=== PATIENT | female | born 1935 | race Caucasian/White ===

== ENCOUNTER → 2016-08-14 | Outpatient (REF) | payer MEDICARE ==
[~2016-08-14] MED LIST: /WARF25TA; ANTIFUNGAL; ASPI81TA45; COLA100C2; GAS-80CH; HYDR25TA6; NAPR500T; NORV5TAB; PAIN325T; PAXI10TA; PEPC20TA2; PERC5TAB8; SENO8.6T5; THERGRAN; TRAM50TA2; VALS80CA; ZOCO10TA; [UNRECOGNIZED DRUG - CODE]; [UNRECOGNIZED DRUG - OTHER]; dulcolax; exforge; glucosamine/chondroi; metamucil
[2016-08-14 19:02] LABS: ALBUMIN 3.7 GM/DL (3.2-5.2); ALBUMIN/GLOBULIN RATIO 1.12 (1.00-1.93); ALKALINE PHOSPHATASE 95 U/L (45-117); ALT/SGPT 16 U/L (12-78); ANION GAP 7 MEQ/L (8-16); AST/SGOT 15 U/L (15-37); BILIRUBIN,TOTAL 0.7 MG/DL (0.2-1.0); BLOOD UREA NITROGEN 13 MG/DL (7-18); CALCIUM LEVEL 8.6 MG/DL (8.8-10.2); CARBON DIOXIDE LEVEL 29 MEQ/L (21-32); CHLORIDE LEVEL 104 MEQ/L (98-107); CHOLESTEROL LEVEL 183 MG/DL (<200); CREATININE FOR GFR 0.86 MG/DL (0.55-1.02); FREE T4 0.98 NG/DL (0.76-1.46); GLOMERULAR FILTRATION RATE > 60.0 (>39); GLUCOSE, FASTING 90 MG/DL (83-110); POTASSIUM SERUM 3.9 MEQ/L (3.5-5.1); SODIUM LEVEL 140 MEQ/L (136-145); TRIGLYCERIDES LEVEL 91 MG/DL (<150)
[2016-08-14 19:32] LABS: EOS # 0.3 K/mm3 (0.0-0.50); EOS % 6.3 % (0.0-3.0); LARGE UNSTAINED CELL # 0.1 K/mm3 (0.0-0.4); LARGE UNSTAINED CELL % 1.6 % (0.0-4.0); LYMPH # 1.3 K/mm3 (1.5-4.5); LYMPH % 23.4 % (24.0-44.0); MEAN CORPUSCULAR HEMOGLOBIN 31.2 pg (27.0-33.0); MEAN CORPUSCULAR HGB CONC 33.6 g/dl (32.0-36.5); MEAN CORPUSCULAR VOLUME 92.7 fl (80.0-96.0); MONO # 0.4 K/mm3 (0.0-0.8); MONO % 8.3 % (0.0-5.0); NEUTROPHILS # 3.1 K/mm3 (1.8-7.7); NEUTROPHILS % 59.3 % (36.0-66.0); PLATELET COUNT, AUTOMATED 319 k/mm3 (150-450); WHITE BLOOD COUNT 5.2 K/mm3 (4.0-10.0)
== END ==
LOC: M SFHCCAPE 09:46
PROVIDERS: ATTEND Physician Assistant
DX: L65.9 Nonscarring hair loss, unspecified (principal); I10 Essential (primary) hypertension; R73.01 Impaired fasting glucose

== ENCOUNTER → 2016-11-14 | Outpatient (REF) | payer MEDICARE ==
[~2016-11-14] MED LIST changes: +AMLOD PO; +ASPI81CH32 PO; +FAMO1TAB11 PO; +HYDR25TAB PO; +LEVO25TA5 PO; +PARO15TA PO; +SIMV10TA2 PO; +TRIA1CR; +VALSAR PO
[2016-11-14 18:02] LABS: ALBUMIN 3.6 GM/DL (3.2-5.2); ALBUMIN/GLOBULIN RATIO 1.09 (1.00-1.93); ALKALINE PHOSPHATASE 82 U/L (45-117); ALT/SGPT 18 U/L (12-78); ANION GAP 8 MEQ/L (8-16); AST/SGOT 13 U/L (15-37); BILIRUBIN,TOTAL 0.5 MG/DL (0.2-1.0); BLOOD UREA NITROGEN 17 MG/DL (7-18); CARBON DIOXIDE LEVEL 27 MEQ/L (21-32); CHLORIDE LEVEL 109 MEQ/L (98-107); CHOLESTEROL LEVEL 182 MG/DL (<200); CREATININE FOR GFR 0.78 MG/DL (0.55-1.02); GLOMERULAR FILTRATION RATE > 60.0 (>39); GLUCOSE, FASTING 99 MG/DL (83-110); POTASSIUM SERUM 4.2 MEQ/L (3.5-5.1); SODIUM LEVEL 144 MEQ/L (136-145); TOTAL PROTEIN 6.9 GM/DL (6.4-8.2); TRIGLYCERIDES LEVEL 87 MG/DL (<150)
[2016-11-14 18:58] LABS: BASO % 0.5 % (0.0-1.0); EOS # 0.5 K/mm3 (0.0-0.50); LARGE UNSTAINED CELL # 0.1 K/mm3 (0.0-0.4); LARGE UNSTAINED CELL % 2.2 % (0.0-4.0); LYMPH # 1.8 K/mm3 (1.5-4.5); MEAN CORPUSCULAR HEMOGLOBIN 30.8 pg (27.0-33.0); MEAN CORPUSCULAR HGB CONC 33.3 g/dl (32.0-36.5); MEAN CORPUSCULAR VOLUME 92.6 fl (80.0-96.0); MONO # 0.6 K/mm3 (0.0-0.8); MONO % 9.4 % (0.0-5.0); NEUTROPHILS % 51.9 % (36.0-66.0); PLATELET COUNT, AUTOMATED 344 k/mm3 (150-450); RED CELL DISTRIBUTION WIDTH 14.1 % (11.5-14.5); WHITE BLOOD COUNT 5.8 K/mm3 (4.0-10.0)
== END ==
LOC: M SFHCCAPE 08:55
PROVIDERS: ATTEND Physician Assistant
DX: E78.2 Mixed hyperlipidemia (principal); E03.9 Hypothyroidism, unspecified; E11.9 Type 2 diabetes mellitus without complications

== ENCOUNTER → 2016-12-21 | Outpatient (CLI) | payer MEDICARE ==
[2016-12-21 20:13] LABS: BASO # 0.1 10^3/uL (0.0-0.2); BASO % 0.3 % (0.0-1.0); EOS % 0.1 % (0.0-3.0); IMMATURE GRANULOCYTE % 0.3 % (0-0); LYMPH # 0.8 10^3/uL (1.5-4.5); LYMPH % 4.6 % (24.0-44.0); MEAN CORPUSCULAR HGB CONC 32.7 g/dl (32.0-36.5); MEAN CORPUSCULAR VOLUME 91.9 fl (80.0-96.0); MONO # 1.3 10^3/uL (0.0-0.8); MONO % 8.1 % (0.0-5.0); NEUTROPHILS # 14.3 10^3/uL (1.8-7.7); NEUTROPHILS % 86.6 % (36.0-66.0); PLATELET COUNT, AUTOMATED 375 10^3/uL (150-450); RED CELL DISTRIBUTION WIDTH 14.6 % (11.5-14.5); WHITE BLOOD COUNT 16.5 10^3/uL (4.0-10.0)
[2016-12-21 21:01] LABS: ALBUMIN 4.2 GM/DL (3.2-5.2); ALBUMIN/GLOBULIN RATIO 1.17 (1.00-1.93); ALKALINE PHOSPHATASE 90 U/L (45-117); ALT/SGPT 19 U/L (12-78); ANION GAP 9 MEQ/L (8-16); AST/SGOT 14 U/L (15-37); BILIRUBIN,TOTAL 0.7 MG/DL (0.2-1.0); BLOOD UREA NITROGEN 19 MG/DL (7-18); CALCIUM LEVEL 9.6 MG/DL (8.8-10.2); CARBON DIOXIDE LEVEL 28 MEQ/L (21-32); CHLORIDE LEVEL 104 MEQ/L (98-107); CREATININE FOR GFR 0.95 MG/DL (0.55-1.02); GLOMERULAR FILTRATION RATE > 60.0 (>39); GLUCOSE, FASTING 126 MG/DL (83-110); POTASSIUM SERUM 4.3 MEQ/L (3.5-5.1); SODIUM LEVEL 141 MEQ/L (136-145); TOTAL PROTEIN 7.8 GM/DL (6.4-8.2)
== END ==
LOC: M WUC 18:34
PROVIDERS: ATTEND Physician Assistant
DX: K29.00 Acute gastritis without bleeding (principal)

== ENCOUNTER → 2017-01-09 | Outpatient (REF) | payer MEDICARE ==
[2017-01-09 20:08] LABS: BASO # 0.1 10^3/uL (0.0-0.2); EOS # 0.4 10^3/uL (0.0-0.50); EOS % 8.2 % (0.0-3.0); IMMATURE GRANULOCYTE % 0.2 % (0-0); LYMPH # 1.2 10^3/uL (1.5-4.5); LYMPH % 24.6 % (24.0-44.0); MEAN CORPUSCULAR HEMOGLOBIN 30.3 pg (27.0-33.0); MEAN CORPUSCULAR HGB CONC 32.8 g/dl (32.0-36.5); MEAN CORPUSCULAR VOLUME 92.5 fl (80.0-96.0); MONO # 0.6 10^3/uL (0.0-0.8); MONO % 11.2 % (0.0-5.0); NEUTROPHILS # 2.7 10^3/uL (1.8-7.7); NEUTROPHILS % 54.8 % (36.0-66.0); PLATELET COUNT, AUTOMATED 358 10^3/uL (150-450); RED CELL DISTRIBUTION WIDTH 14.6 % (11.5-14.5)
[2017-01-09 20:16] LABS: ALBUMIN 3.7 GM/DL (3.2-5.2); ALBUMIN/GLOBULIN RATIO 1.16 (1.00-1.93); ALKALINE PHOSPHATASE 84 U/L (45-117); ALT/SGPT 19 U/L (12-78); ANION GAP 5 MEQ/L (8-16); AST/SGOT 17 U/L (7-37); BILIRUBIN,TOTAL 0.6 MG/DL (0.2-1.0); BLOOD UREA NITROGEN 18 MG/DL (7-18); CARBON DIOXIDE LEVEL 29 MEQ/L (21-32); CHLORIDE LEVEL 108 MEQ/L (98-107); CREATININE FOR GFR 0.82 MG/DL (0.55-1.02); GLOMERULAR FILTRATION RATE > 60.0 (>39); GLUCOSE, FASTING 88 MG/DL (83-110); POTASSIUM SERUM 4.5 MEQ/L (3.5-5.1); SODIUM LEVEL 142 MEQ/L (136-145); TOTAL PROTEIN 6.9 GM/DL (6.4-8.2)
== END ==
LOC: M SFHCCAPE 11:48
PROVIDERS: ATTEND Physician Assistant
DX: Z01.818 Encounter for other preprocedural examination (principal); H26.9 Unspecified cataract
CPT/HCPCS: 80053; 85025; G0463

== ENCOUNTER 2017-01-11 06:11 | Day surgery (SDC) | payer MEDICARE ==
[~2017-01-11] VITALS: Ht 149.9 cm; Wt 93.0 kg
[2017-01-11] MEDS ORDERED: POVIDONE-IODINE 5% OPHTH PREP SOL 30ML As Ordered ONE (06:33)
[2017-01-11] MEDS ORDERED: ACETYLCHOLINE OPHTH SOLN 1% 2ML (MIOCHOL-E) As Ordered ONE (06:34)
[2017-01-11] MEDS ORDERED: BALANCED SALT IRRIGATION SOLUTION 500ML BAG (FOR OR EYE MACHINE) As Ordered ONE (06:35)
[2017-01-11] MEDS ORDERED: CEFUROXIME 1MG/0.1ML INTRACAMERAL INJ As Ordered ONE (06:36)
[2017-01-11] MEDS ORDERED: DUOVISC (0.50ML VISCOAT/0.55ML PROVISC) OPHTH KIT As Ordered ONE (06:37)
[2017-01-11] MEDS ORDERED: LIDOCAINE 0.75%/EPINEPHRINE 0.025% IN BSS 1ML SYR INTRACAMERAL (OR ONLY) As Ordered ONE (06:37)
[2017-01-11] MEDS ORDERED: TROPICAMIDE 1% OPHTH SOLN 2ML OS ONE (07:00)
[2017-01-11] MEDS ORDERED: PHENYLEPHRINE 2.5% OPHTH SOL 2ML OS ONE (07:00)
[2017-01-11] MEDS ORDERED: PROPARACAINE 0.5% OPHTH SOL 15ML OS ONE (07:00)
[2017-01-11] MEDS ORDERED: OFLOXACIN 0.3 % (OCUFLOX) OPTH SOL 5ML OS ONE (07:00)
[2017-01-11] MEDS ORDERED: fentaNYL 100 MCG/2 ML INJECTION (J3010) As Ordered ONE (07:12)
[2017-01-11] MEDS ORDERED: MIDAZOLAM INJ 2 MG/2 ML VIAL (J2250) As Ordered ONE (07:12)
[2017-01-11 08:20] VITALS: BP 137/81
--- NOTE | 2017-01-13 10:54 | RO ---
DATE OF PROCEDURE: 01/11/2017 PREOPERATIVE DIAGNOSIS: Visually significant nuclear sclerotic cataract left eye. POSTOPERATIVE DIAGNOSIS: Visually significant nuclear sclerotic cataract left eye. PROCEDURE: Cataract extraction with use of phacoemulsification and placement of intraocular lens, AU00T0, 22.5 diopters eye. SURGEON: Rubin Shane DO CHEF PASSENGER VESSEL: ANESTHESIA: Local with monitored anesthesia care (MAC). COMPLICATIONS: None. POSTOPERATIVE CONDITION: Stable. INDICATION FOR SURGERY: Blurred vision left eye affecting patient's activities of daily living. DESCRIPTION OF PROCEDURE: The patient was seen in the preoperative area and properly identified. The correct operative eye was identified and marked. Attention was turned to that eye. The patient received topical antibiotics in the preoperative area. The patient then received topical dilating drops consisting of tropicamide and phenylephrine. The patient was then transferred to the operating room. The correct side was re-identified. The patient received topical anesthetics and antibiotics on the surface of the eye. The eye was prepped and draped in a sterile fashion. The upper and lower eyelids were isolated with Tegaderm tape, and the lids were held open with an adjustable speculum. Using a sideport blade, a paracentesis incision was made. Intraocular preservative-free lidocaine was then injected into the anterior chamber. Viscoelastic was then injected into the anterior chamber through the paracentesis. Using a 2.4 mm sharp-tipped keratome, the anterior chamber was entered via a temporal clear corneal incision. A continuous curvilinear capsulorrhexis was created with the aid of a 26-gauge cystotome and Utrata forceps. Hydrodissection was performed with balanced salt solution (BSS) on a blunt cannula until the nucleus was freely mobile. The crystalline lens was phacoemulsified and aspirated. Additional cohesive viscoelastic was placed into the capsular bag to deepen it. An AU00T0, 22.5 lens was placed into the capsular bag and confirmed by visualizing the continuous curvilinear capsulorrhexis. Additional irrigation and aspiration was used to remove cortical material and remaining viscoelastic. The clear corneal incision was hydrated with BSS on a blunt cannula. The lens was well positioned. The incisions were then tested for leaks and found to be negative. The eye was then palpated for appropriate pressure and adjusted accordingly with BSS. The eyelid speculum was carefully removed. A shield was placed. The patient tolerated the procedure well and was discharged to the recovery unit in a stable condition. TARIK
== END 2017-01-11 08:22 | disposition home or self-care (01) ==
LOC: M SDC 06:11
PROVIDERS: ATTEND Ophthalmology
DX: H25.12 Age-related nuclear cataract, left eye (principal); I10 Essential (primary) hypertension; E78.5 Hyperlipidemia, unspecified; E03.9 Hypothyroidism, unspecified; K21.9 Gastro-esophageal reflux disease without esophagitis; F41.9 Anxiety disorder, unspecified; F32.9 Major depressive disorder, single episode, unspecified; Z88.8 Allergy status to other drugs, medicaments and biological substances; Z79.82 Long term (current) use of aspirin; Z79.899 Other long term (current) drug therapy
CPT/HCPCS: 66984; J2250; J3010; V2632

== ENCOUNTER 2017-02-01 08:17 | Day surgery (SDC) | payer MEDICARE ==
[~2017-02-01] VITALS: Ht 149.9 cm; Wt 91.7 kg
[~2017-02-01 08:17] MED LIST changes: +OFLOXACIN 0.3 % (OCUFLOX) OPTH SOL 5ML OD ONE; +PHENYLEPHRINE 2.5% OPHTH SOL 2ML OD ONE; +PROPARACAINE 0.5% OPHTH SOL 15ML OD ONE; +TROPICAMIDE 1% OPHTH SOLN 2ML OD ONE
[2017-02-01] MEDS ORDERED: POVIDONE-IODINE 5% OPHTH PREP SOL 30ML As Ordered ONE (10:11)
[2017-02-01] MEDS ORDERED: LIDOCAINE 0.75%/EPINEPHRINE 0.025% IN BSS 1ML SYR INTRACAMERAL (OR ONLY) As Ordered ONE (10:12)
[2017-02-01] MEDS ORDERED: CEFUROXIME 1MG/0.1ML INTRACAMERAL INJ As Ordered ONE (10:12)
[2017-02-01] MEDS ORDERED: BALANCED SALT IRRIGATION SOLUTION 500ML BAG (FOR OR EYE MACHINE) As Ordered ONE (10:12)
[2017-02-01] MEDS ORDERED: DUOVISC (0.50ML VISCOAT/0.55ML PROVISC) OPHTH KIT As Ordered ONE (10:12)
[2017-02-01] MEDS ORDERED: ACETYLCHOLINE OPHTH SOLN 1% 2ML (MIOCHOL-E) As Ordered ONE (10:12)
[2017-02-01] MEDS ORDERED: MIDAZOLAM INJ 2 MG/2 ML VIAL (J2250) As Ordered ONE (10:30)
[2017-02-01] MEDS ORDERED: fentaNYL 100 MCG/2 ML INJECTION (J3010) As Ordered ONE (10:30)
[2017-02-01] MEDS ORDERED: ONDANSETRON 4MG/2ML VIAL (J2405) IV PRN (11:30)
[2017-02-01] MEDS ORDERED: ACETAMINOPHEN TAB 650MG DOSE (2X325MG) PO PRN (11:30)
[2017-02-01 12:00] VITALS: BP 143/67
--- NOTE | 2017-02-02 13:11 | RO ---
DATE OF PROCEDURE: 02/01/2017 PREOPERATIVE DIAGNOSIS: Visually significant nuclear sclerotic cataract right eye. POSTOPERATIVE DIAGNOSIS: Visually significant nuclear sclerotic cataract right eye. PROCEDURE: Cataract extraction with use of phacoemulsification and placement of intraocular lens, AU00T0, 23.0, right eye. SURGEON: Rubin Shane DO SETTLEMENT PROCESSOR: ANESTHESIA: Local with monitored anesthesia care (MAC). COMPLICATIONS: None. POSTOPERATIVE CONDITION: Stable. INDICATION FOR SURGERY: Blurred vision right eye affecting patient's activities of daily living. DESCRIPTION OF PROCEDURE: The patient was seen in the preoperative area and properly identified. The correct operative eye was identified and marked. Attention was turned to that eye. The patient received topical antibiotics in the preoperative area. The patient then received topical dilating drops consisting of tropicamide and phenylephrine. The patient was then transferred to the operating room. The correct side was re-identified. The patient received topical anesthetics and antibiotics on the surface of the eye. The eye was prepped and draped in a sterile fashion. The upper and lower eyelids were isolated with Tegaderm tape, and the lids were held open with an adjustable speculum. Using a sideport blade, a paracentesis incision was made. Intraocular preservative-free lidocaine was then injected into the anterior chamber. Viscoelastic was then injected into the anterior chamber through the paracentesis. Using a 2.65 mm sharp-tipped keratome, the anterior chamber was entered via a temporal clear corneal incision. A continuous curvilinear capsulorrhexis was created with the aid of a 26-gauge cystotome and Utrata forceps. Hydrodissection was performed with balanced salt solution (BSS) on a blunt cannula until the nucleus was freely mobile. The crystalline lens was phacoemulsified and aspirated. Additional cohesive viscoelastic was placed into the capsular bag to deepen it. An AU00T0 lens was placed into the capsular bag and confirmed by visualizing the continuous curvilinear capsulorrhexis. Additional irrigation and aspiration was used to remove cortical material and remaining viscoelastic. The clear corneal incision was hydrated with BSS on a blunt cannula. The lens was well positioned. The incisions were then tested for leaks and found to be negative. The eye was then palpated for appropriate pressure and adjusted accordingly with BSS. The eyelid speculum was carefully removed. TobraDex ointment was placed in the eye. An eye patch and shield were then secured over the eye. The patient tolerated the procedure well and was discharged to the recovery unit in a stable condition.
== END 2017-02-01 12:06 | disposition home or self-care (01) ==
LOC: M SDC 08:17
PROVIDERS: ATTEND Ophthalmology
DX: H25.11 Age-related nuclear cataract, right eye (principal); I10 Essential (primary) hypertension; E03.9 Hypothyroidism, unspecified; E78.00 Pure hypercholesterolemia, unspecified; K21.9 Gastro-esophageal reflux disease without esophagitis; F41.9 Anxiety disorder, unspecified; F32.9 Major depressive disorder, single episode, unspecified; M19.041 Primary osteoarthritis, right hand; M19.042 Primary osteoarthritis, left hand; M19.071 Primary osteoarthritis, right ankle and foot; M19.072 Primary osteoarthritis, left ankle and foot; Z88.5 Allergy status to narcotic agent; Z88.8 Allergy status to other drugs, medicaments and biological substances; Z91.048 Other nonmedicinal substance allergy status; Z79.899 Other long term (current) drug therapy; Z79.82 Long term (current) use of aspirin
CPT/HCPCS: 66984; J2250; J3010; V2632

== ENCOUNTER → 2017-04-23 | Outpatient (REF) | payer MEDICARE ==
[2017-04-23 18:11] LABS: ALBUMIN 3.9 GM/DL (3.2-5.2); ALBUMIN/GLOBULIN RATIO 1.05 (1.00-1.93); ALKALINE PHOSPHATASE 106 U/L (45-117); ALT/SGPT 16 U/L (12-78); ANION GAP 7 MEQ/L (8-16); AST/SGOT 18 U/L (7-37); BILIRUBIN,TOTAL 0.7 MG/DL (0.2-1.0); BLOOD UREA NITROGEN 15 MG/DL (7-18); CALCIUM LEVEL 9.1 MG/DL (8.8-10.2); CARBON DIOXIDE LEVEL 30 MEQ/L (21-32); CHLORIDE LEVEL 104 MEQ/L (98-107); CHOLESTEROL LEVEL 201 MG/DL (<200); CREATININE FOR GFR 0.94 MG/DL (0.55-1.30); FREE T4 0.85 NG/DL (0.76-1.46); GLOMERULAR FILTRATION RATE > 60.0 (>32); GLUCOSE, FASTING 89 MG/DL (70-100); HDL CHOLESTEROL 87 MG/DL (>40); NON-HDL-C 114 MG/DL; POTASSIUM SERUM 3.7 MEQ/L (3.5-5.1); SODIUM LEVEL 141 MEQ/L (136-145); TOTAL PROTEIN 7.6 GM/DL (6.4-8.2); TRIGLYCERIDES LEVEL 95 MG/DL (<150)
[2017-04-23 19:33] LABS: ESTIMATED AVERAGE GLUCOSE 111 MG/DL (60-110); HEMOGLOBIN A1c 5.5 %
== END ==
LOC: M SFHCCAPE 09:59
DX: E78.00 Pure hypercholesterolemia, unspecified (principal); E03.9 Hypothyroidism, unspecified; E11.9 Type 2 diabetes mellitus without complications
CPT/HCPCS: 84443

== ENCOUNTER 2017-07-14 08:22 | Observation (INO) | payer MEDICARE ==
[2017-07-14] MEDS: LEVOTHYROXINE 25MCG TABLET (0.025MG) PO (06:00)
[2017-07-14] MEDS: PANTOPRAZOLE 40MG INJ (PROTONIX) (C9113) IV ×2 (09:00→21:07)
[2017-07-14] MEDS ORDERED: ACETAMINOPHEN 325 MG TAB As Ordered (09:03)
[2017-07-14] MEDS ORDERED: ONDANSETRON 4MG/2ML VIAL (J2405) As Ordered (09:03)
[2017-07-14] MEDS: ONDANSETRON 4MG/2ML VIAL (J2405) IV ×2 (09:09→10:13)
[2017-07-14] MEDS: NS 1,000 ML IV ×4 (09:10→21:08)
[2017-07-14 09:13] LABS: BASO % 0.3 % (0.0-1.0); EOS % 0.1 % (0.0-3.0); HEMATOCRIT 44.9 % (36.0-47.0); HEMOGLOBIN 15.4 g/dl (12.0-15.5); IMMATURE GRANULOCYTE % 0.5 % (0-3.0); LYMPH # 0.7 10^3/uL (1.5-4.5); LYMPH % 6.3 % (24.0-44.0); MEAN CORPUSCULAR HGB CONC 34.3 g/dl (32.0-36.5); MEAN CORPUSCULAR VOLUME 87.4 fl (80.0-96.0); MONO # 0.2 10^3/uL (0.0-0.8); MONO % 1.6 % (0.0-5.0); NEUTROPHILS % 91.2 % (36.0-66.0); PLATELET COUNT, AUTOMATED 364 10^3/uL (150-450); RED BLOOD COUNT 5.14 10^6/uL (4.00-5.40); RED CELL DISTRIBUTION WIDTH 14.4 % (11.5-14.5); WHITE BLOOD COUNT 10.9 10^3/uL (4.0-10.0)
[2017-07-14] MEDS: ACETAMINOPHEN TAB 650MG DOSE (2X325MG) PO (09:15)
[2017-07-14 09:18] LABS: AMORPHOUS SEDIMENT RFX SMALL (NEGATIVE); KETONE, URINE AUTO RFX 1+ mg/dL (NEGATIVE); LEUKOCYTE ESTERASE UR AUTO RFX NEGATIVE (NEGATIVE); NITRITE, URINE AUTO RFX NEGATIVE (NEGATIVE); RBC, URINE AUTO RFX 5 /HPF (0-3); SPECIFIC GRAVITY UR AUTO RFX 1.013 (1.002-1.035); SQUAM EPITHELIAL CELL UR AURFX 2 /HPF (0-6); WBC, URINE AUTO RFX 3 /HPF (0-3)
[2017-07-14 09:31] LABS: LACTIC ACID SEPSIS PROTOCOL 3.2 MMOL/L (0.4-2.0)
[2017-07-14] MEDS: SODIUM CHLORIDE 0.9% 1000 ML IV (09:45)
[2017-07-14 09:59] LABS: ALBUMIN 3.7 GM/DL (3.2-5.2); ALBUMIN/GLOBULIN RATIO 0.95 (1.00-1.93); ALKALINE PHOSPHATASE 93 U/L (45-117); ALT/SGPT 18 U/L (12-78); AMYLASE 33 U/L (25-115); ANION GAP 10 MEQ/L (8-16); AST/SGOT 17 U/L (7-37); BILIRUBIN,DIRECT 0.2 MG/DL (0.0-0.2); BILIRUBIN,TOTAL 0.7 MG/DL (0.2-1.0); BLOOD UREA NITROGEN 17 MG/DL (7-18); CALCIUM LEVEL 8.6 MG/DL (8.8-10.2); CARBON DIOXIDE LEVEL 22 MEQ/L (21-32); CHLORIDE LEVEL 108 MEQ/L (98-107); CK-MB VALUE MASS 1.1 NG/ML (<3.6); CPK CREATINE PHOSPHOKINASE 99 U/L (26-192); CREATININE FOR GFR 0.92 MG/DL (0.55-1.30); GLOMERULAR FILTRATION RATE > 60.0 (>32); GLUCOSE, FASTING 165 MG/DL (70-100); LIPASE 103 U/L (73-393); MB/CK RELATIVE INDEX 1.11 (< OR =4); POTASSIUM SERUM 3.6 MEQ/L (3.5-5.1); SODIUM LEVEL 140 MEQ/L (136-145); TOTAL PROTEIN 7.6 GM/DL (6.4-8.2); TROPONIN I < 0.02 NG/ML (< 0.10)
[2017-07-14] MEDS ORDERED: ISOVUE-370 76% 100ML VIAL (Q9967) As Ordered (10:18)
[2017-07-14] MEDS ORDERED: METOCLOPRAMIDE INJ 10MG/2ML VIAL (J2765) IV (11:45)
[2017-07-14] MEDS ORDERED: ACETAMINOPHEN 500 MG TAB PO (11:45)
[2017-07-14] MEDS ORDERED: TRIAMCINOLONE ACET 0.1% CREAM 15 GM TOP (11:45)
[2017-07-14] MEDS ORDERED: ACETAMINOPHEN TAB 650MG DOSE (2X325MG) PO (11:45)
[2017-07-14] MEDS: HumaLOG INSULIN (NovoLOG) PER UNIT SC ×3 (12:00→21:09)
[2017-07-14] MEDS ORDERED: GLUCOSE 4 GM CHEW TABLET PO (12:30)
[2017-07-14] MEDS ORDERED: DEXTROSE 50% 50 ML SYRINGE IV (12:30)
[2017-07-14] MEDS ORDERED: GLUCAGON FOR INJ 1 MG VIAL (J1610) SC (12:30)
[2017-07-14 12:53] LABS: C REACTIVE PROTEIN QUANTITATIV < 0.30 MG/DL (0.00-0.30); MAGNESIUM LEVEL 2.3 MG/DL (1.8-2.4)
[2017-07-14 14:01] LABS: ERYTHROCYTE SEDIMENTATION RATE 5 mm/hr (0-30)
[2017-07-14] MEDS: METOCLOPRAMIDE INJ 10MG/2ML VIAL (J2765) IV ×3 (14:15→23:47)
[2017-07-14 15:02] LABS: INR 1.17; PARTIAL THROMBOPLASTIN TIME 26.4 SECONDS (26.8-37.9); PROTHROMBIN TIME 15.1 SECONDS (12.4-14.5)
[2017-07-14 15:19] LABS: CPK CREATINE PHOSPHOKINASE 248 U/L (26-192); TROPONIN I 0.07 NG/ML (< 0.10)
[2017-07-14 15:20] LABS: CK-MB VALUE MASS 3.1 NG/ML (<3.6); MB/CK RELATIVE INDEX 1.25 (< OR =4)
[2017-07-14] MEDS: amLODIPine 10 MG TAB PO (15:59)
[2017-07-14] MEDS: SIMETHICONE 80 MG CHEW TAB PO ×2 (15:59→21:07)
[2017-07-14] MEDS: PARoxetine 10MG TABLET PO (16:00)
[2017-07-14] MEDS: ASPIRIN 81 MG CHEW TABLET PO (16:00)
[2017-07-14] MEDS: hydroCHLOROthiazide 25 MG TAB PO (16:01)
[2017-07-14] MEDS: HEPARIN SOD (PORCINE) 5000 UNITS/ML VIAL SC ×2 (16:01→21:08)
[2017-07-14 18:11] LABS: BEDSIDE GLUCOSE 96 MG/DL (83-110)
[2017-07-14 20:46] LABS: BEDSIDE GLUCOSE 86 MG/DL (83-110)
[2017-07-14 21:06] LABS: CPK CREATINE PHOSPHOKINASE 368 U/L (26-192); TROPONIN I 0.14 NG/ML (< 0.10)
[2017-07-14 21:07] LABS: CK-MB VALUE MASS 3.3 NG/ML (<3.6); MB/CK RELATIVE INDEX 0.89 (< OR =4)
[2017-07-14] MEDS: SIMVASTATIN 10 MG TAB PO (21:07)
[2017-07-14] MEDS: FAMOTIDINE 20 MG TAB PO (21:07)
[2017-07-15 00:13] LABS: CPK CREATINE PHOSPHOKINASE 379 U/L (26-192); TROPONIN I 0.16 NG/ML (< 0.10)
[2017-07-15 00:14] LABS: CK-MB VALUE MASS 3.4 NG/ML (<3.6); MB/CK RELATIVE INDEX 0.89 (< OR =4)
[2017-07-15] MEDS: NS 1,000 ML IV (05:40)
[2017-07-15] MEDS: METOCLOPRAMIDE INJ 10MG/2ML VIAL (J2765) IV (05:40)
[2017-07-15] MEDS: LEVOTHYROXINE 25MCG TABLET (0.025MG) PO (05:40)
[2017-07-15] MEDS: HEPARIN SOD (PORCINE) 5000 UNITS/ML VIAL SC ×3 (05:40→21:12)
[2017-07-15 06:41] LABS: BASO # 0.1 10^3/uL (0.0-0.2); BASO % 0.7 % (0.0-1.0); EOS # 0.3 10^3/uL (0.0-0.50); EOS % 3.8 % (0.0-3.0); HEMATOCRIT 37.8 % (36.0-47.0); IMMATURE GRANULOCYTE % 0.3 % (0-3.0); LYMPH # 1.5 10^3/uL (1.5-4.5); LYMPH % 16.7 % (24.0-44.0); MEAN CORPUSCULAR HEMOGLOBIN 30.3 pg (27.0-33.0); MEAN CORPUSCULAR HGB CONC 33.9 g/dl (32.0-36.5); MEAN CORPUSCULAR VOLUME 89.6 fl (80.0-96.0); MONO % 10.7 % (0.0-5.0); NEUTROPHILS % 67.8 % (36.0-66.0); PLATELET COUNT, AUTOMATED 297 10^3/uL (150-450); RED BLOOD COUNT 4.22 10^6/uL (4.00-5.40); RED CELL DISTRIBUTION WIDTH 14.9 % (11.5-14.5); WHITE BLOOD COUNT 8.8 10^3/uL (4.0-10.0)
[2017-07-15 06:54] LABS: HEMOGLOBIN 12.8 g/dl (12.0-15.5)
[2017-07-15 07:06] LABS: ALBUMIN 2.9 GM/DL (3.2-5.2); ALBUMIN/GLOBULIN RATIO 0.94 (1.00-1.93); ALKALINE PHOSPHATASE 73 U/L (45-117); ALT/SGPT 13 U/L (12-78); ANION GAP 8 MEQ/L (8-16); AST/SGOT 21 U/L (7-37); BILIRUBIN,TOTAL 0.8 MG/DL (0.2-1.0); BLOOD UREA NITROGEN 11 MG/DL (7-18); CALCIUM LEVEL 7.7 MG/DL (8.8-10.2); CARBON DIOXIDE LEVEL 25 MEQ/L (21-32); CHLORIDE LEVEL 113 MEQ/L (98-107); CK-MB VALUE MASS 2.8 NG/ML (<3.6); CPK CREATINE PHOSPHOKINASE 340 U/L (26-192); CREATININE FOR GFR 0.82 MG/DL (0.55-1.30); GLOMERULAR FILTRATION RATE > 60.0 (>32); GLUCOSE, FASTING 92 MG/DL (70-100); MAGNESIUM LEVEL 2.2 MG/DL (1.8-2.4); MB/CK RELATIVE INDEX 0.82 (< OR =4); POTASSIUM SERUM 2.7 MEQ/L (3.5-5.1); SODIUM LEVEL 146 MEQ/L (136-145); TROPONIN I 0.09 NG/ML (< 0.10)
[2017-07-15] MEDS: HumaLOG INSULIN (NovoLOG) PER UNIT SC ×4 (07:30→20:44)
[2017-07-15] MEDS: ASPIRIN 81 MG CHEW TABLET PO (07:46)
[2017-07-15] MEDS: FAMOTIDINE 20 MG TAB PO ×2 (07:46→21:13)
[2017-07-15] MEDS: hydroCHLOROthiazide 25 MG TAB PO (07:46)
[2017-07-15] MEDS: SIMETHICONE 80 MG CHEW TAB PO ×3 (07:47→21:12)
[2017-07-15] MEDS: amLODIPine 10 MG TAB PO (07:47)
[2017-07-15] MEDS: PANTOPRAZOLE 40MG INJ (PROTONIX) (C9113) IV ×2 (07:48→21:12)
[2017-07-15] MEDS: PARoxetine 10MG TABLET PO (07:48)
[2017-07-15] MEDS: ONDANSETRON 4MG/2ML VIAL (J2405) IV (07:48)
[2017-07-15] MEDS: KCL 40MEQ in NS 1000ML 1,000 ML IV ×3 (07:50→19:57)
[2017-07-15] MEDS: KCL 10MEQ/100ML SWI (KRUN) 10 MEQ in APPROPRIATE DILUENT 1 EA IV ×2 (07:51→09:12)
[2017-07-15 11:33] LABS: BEDSIDE GLUCOSE 103 MG/DL (83-110)
[2017-07-15 17:44] LABS: BEDSIDE GLUCOSE 102 MG/DL (83-110)
[2017-07-15 19:44] LABS: BEDSIDE GLUCOSE 107 MG/DL (83-110)
[2017-07-15] MEDS: SIMVASTATIN 10 MG TAB PO (21:11)
[2017-07-16] MEDS: HEPARIN SOD (PORCINE) 5000 UNITS/ML VIAL SC (05:55)
[2017-07-16] MEDS: LEVOTHYROXINE 25MCG TABLET (0.025MG) PO (05:55)
[2017-07-16 06:37] LABS: BASO # 0.1 10^3/uL (0.0-0.2); BASO % 0.8 % (0.0-1.0); EOS # 0.5 10^3/uL (0.0-0.50); EOS % 7.8 % (0.0-3.0); HEMOGLOBIN 12.7 g/dl (12.0-15.5); IMMATURE GRANULOCYTE % 0.3 % (0-3.0); LYMPH # 1.4 10^3/uL (1.5-4.5); LYMPH % 22.6 % (24.0-44.0); MEAN CORPUSCULAR HEMOGLOBIN 30.3 pg (27.0-33.0); MEAN CORPUSCULAR HGB CONC 32.6 g/dl (32.0-36.5); MEAN CORPUSCULAR VOLUME 93.1 fl (80.0-96.0); MONO # 0.8 10^3/uL (0.0-0.8); MONO % 12.2 % (0.0-5.0); NEUTROPHILS # 3.6 10^3/uL (1.8-7.7); NEUTROPHILS % 56.3 % (36.0-66.0); PLATELET COUNT, AUTOMATED 260 10^3/uL (150-450); RED BLOOD COUNT 4.19 10^6/uL (4.00-5.40); WHITE BLOOD COUNT 6.4 10^3/uL (4.0-10.0)
[2017-07-16 06:56] LABS: ALBUMIN 2.7 GM/DL (3.2-5.2); ALBUMIN/GLOBULIN RATIO 0.84 (1.00-1.93); ALKALINE PHOSPHATASE 71 U/L (45-117); ALT/SGPT 14 U/L (12-78); ANION GAP 4 MEQ/L (8-16); AST/SGOT 20 U/L (7-37); BILIRUBIN,TOTAL 0.5 MG/DL (0.2-1.0); BLOOD UREA NITROGEN 14 MG/DL (7-18); CALCIUM LEVEL 8.1 MG/DL (8.8-10.2); CARBON DIOXIDE LEVEL 24 MEQ/L (21-32); CHLORIDE LEVEL 117 MEQ/L (98-107); CREATININE FOR GFR 0.93 MG/DL (0.55-1.30); GLOMERULAR FILTRATION RATE > 60.0 (>32); GLUCOSE, FASTING 104 MG/DL (70-100); MAGNESIUM LEVEL 2.3 MG/DL (1.8-2.4); POTASSIUM SERUM 4.1 MEQ/L (3.5-5.1); SODIUM LEVEL 145 MEQ/L (136-145); TOTAL PROTEIN 5.9 GM/DL (6.4-8.2)
[2017-07-16] MEDS: HumaLOG INSULIN (NovoLOG) PER UNIT SC ×2 (07:30→12:00)
[2017-07-16] MEDS: ASPIRIN 81 MG CHEW TABLET PO (08:38)
[2017-07-16] MEDS: SIMETHICONE 80 MG CHEW TAB PO (08:38)
[2017-07-16] MEDS: PANTOPRAZOLE 40MG INJ (PROTONIX) (C9113) IV (08:38)
[2017-07-16] MEDS: FAMOTIDINE 20 MG TAB PO (08:38)
[2017-07-16] MEDS: PARoxetine 10MG TABLET PO (08:39)
[2017-07-16] MEDS: amLODIPine 10 MG TAB PO (08:39)
== END 2017-07-16 13:55 | disposition home or self-care (01) ==
LOC: M ED 08:22 → M ED INP 11:30 → M MS5PR 12:20
DX: R11.2 Nausea with vomiting, unspecified (principal); K44.9 Diaphragmatic hernia without obstruction or gangrene; E03.9 Hypothyroidism, unspecified; R06.09 Other forms of dyspnea; K21.9 Gastro-esophageal reflux disease without esophagitis; I10 Essential (primary) hypertension; E78.4 Other hyperlipidemia; E11.9 Type 2 diabetes mellitus without complications; E66.01 Morbid (severe) obesity due to excess calories; Z79.899 Other long term (current) drug therapy; F32.9 Major depressive disorder, single episode, unspecified; Z79.82 Long term (current) use of aspirin; R79.1 Abnormal coagulation profile
CPT/HCPCS: C9113

== ENCOUNTER → 2017-08-20 | Outpatient (REF) | payer MEDICARE ==
[2017-08-20 18:14] LABS: FREE T4 0.99 NG/DL (0.76-1.46)
== END ==
LOC: M SFHCCAPE 10:06
DX: E03.9 Hypothyroidism, unspecified (principal); E78.00 Pure hypercholesterolemia, unspecified
CPT/HCPCS: 84443

== ENCOUNTER 2017-10-01 12:46 | Emergency (ER) | payer MEDICARE ==
[2017-10-01] MEDS: ONDANSETRON 4MG/2ML VIAL (J2405) IV (13:45)
[2017-10-01] MEDS: NS 1,000 ML IV (13:45)
[2017-10-01] MEDS: MORPHINE 4 MG/ML 1ML VIAL/SYRINGE (J2270) IV (13:46)
[2017-10-01 14:01] LABS: BASO # 0.1 10^3/uL (0.0-0.2); BASO % 0.3 % (0.0-1.0); EOS % 0.1 % (0.0-3.0); HEMATOCRIT 43.8 % (36.0-47.0); HEMOGLOBIN 14.9 g/dl (12.0-15.5); IMMATURE GRANULOCYTE % 0.3 % (0-3.0); LYMPH # 0.7 10^3/uL (1.5-4.5); MEAN CORPUSCULAR HEMOGLOBIN 30.1 pg (27.0-33.0); MEAN CORPUSCULAR VOLUME 88.5 fl (80.0-96.0); MONO # 1.1 10^3/uL (0.0-0.8); MONO % 6.6 % (0.0-5.0); NEUTROPHILS # 15.2 10^3/uL (1.8-7.7); NEUTROPHILS % 88.7 % (36.0-66.0); PLATELET COUNT, AUTOMATED 383 10^3/uL (150-450); RED BLOOD COUNT 4.95 10^6/uL (4.00-5.40); RED CELL DISTRIBUTION WIDTH 14.4 % (11.5-14.5); WHITE BLOOD COUNT 17.2 10^3/uL (4.0-10.0)
[2017-10-01 14:08] LABS: KETONE, URINE AUTO RFX 1+ mg/dL (NEGATIVE); MUCUS, URINE RFX SMALL (NEGATIVE); NITRITE, URINE AUTO RFX NEGATIVE (NEGATIVE); RBC, URINE AUTO RFX 3 /HPF (0-3); SPECIFIC GRAVITY UR AUTO RFX 1.016 (1.002-1.035); SQUAM EPITHELIAL CELL UR AURFX 2 /HPF (0-6); WBC, URINE AUTO RFX 4 /HPF (0-3)
[2017-10-01 14:13] LABS: LEUKOCYTE ESTERASE UR AUTO RFX TRACE (NEGATIVE)
[2017-10-01] MEDS: KETOROLAC 30 MG/ML VIAL (J1885) IV (14:21)
[2017-10-01 14:25] LABS: ALBUMIN 3.8 GM/DL (3.2-5.2); ALBUMIN/GLOBULIN RATIO 0.95 (1.00-1.93); ALKALINE PHOSPHATASE 98 U/L (45-117); ALT/SGPT 17 U/L (12-78); ANION GAP 12 MEQ/L (8-16); AST/SGOT 17 U/L (7-37); BILIRUBIN,DIRECT 0.2 MG/DL (0.0-0.2); BILIRUBIN,TOTAL 0.7 MG/DL (0.2-1.0); BLOOD UREA NITROGEN 16 MG/DL (7-18); CALCIUM LEVEL 9.3 MG/DL (8.8-10.2); CARBON DIOXIDE LEVEL 24 MEQ/L (21-32); CHLORIDE LEVEL 104 MEQ/L (98-107); CREATININE FOR GFR 1.02 MG/DL (0.55-1.30); GLOMERULAR FILTRATION RATE 55.5 (>32); GLUCOSE, FASTING 176 MG/DL (70-100); LIPASE 87 U/L (73-393); POTASSIUM SERUM 3.2 MEQ/L (3.5-5.1); SODIUM LEVEL 140 MEQ/L (136-145); TOTAL PROTEIN 7.8 GM/DL (6.4-8.2)
[2017-10-01] MEDS ORDERED: ISOVUE-370 76% 100ML VIAL (Q9967) As Ordered (14:27)
[2017-10-01] MEDS: METOCLOPRAMIDE INJ 10MG/2ML VIAL (J2765) IV (14:38)
[2017-10-01] MEDS: ACETAMINOPHEN TAB 650MG DOSE (2X325MG) PO (17:30)
== END 2017-10-01 18:19 | disposition home or self-care (01) ==
LOC: M ED 12:46
DX: K57.32 Diverticulitis of large intestine without perforation or abscess without bleeding (principal); K56.41 Fecal impaction; R11.10 Vomiting, unspecified; R00.0 Tachycardia, unspecified; I10 Essential (primary) hypertension; K21.9 Gastro-esophageal reflux disease without esophagitis; F41.9 Anxiety disorder, unspecified; F32.9 Major depressive disorder, single episode, unspecified; E07.9 Disorder of thyroid, unspecified; Z88.8 Allergy status to other drugs, medicaments and biological substances; Z88.5 Allergy status to narcotic agent; Z91.048 Other nonmedicinal substance allergy status; Z79.899 Other long term (current) drug therapy; Z79.82 Long term (current) use of aspirin
CPT/HCPCS: J2405

== ENCOUNTER → 2017-10-26 | Outpatient (REF) | payer MEDICARE ==
[2017-10-26 11:50] LABS: APPEARANCE, URINE CLEAR (CLEAR); BACTERIA, URINE AUTO 1+ (NEGATIVE); BILIRUBIN, URINE AUTO NEGATIVE (NEGATIVE); BLOOD, URINE BLOOD 1+ (NEGATIVE); COLOR, URINE YELLOW (YELLOW); GLUCOSE, URINE (UA) AUTO NEGATIVE (NEGATIVE); KETONE, URINE AUTO NEGATIVE (NEGATIVE); LEUKOCYTE ESTERASE, URINE AUTO 1+ (NEGATIVE); MUCUS, URINE SMALL (NEGATIVE); NITRITE, URINE AUTO NEGATIVE (NEGATIVE); PROTEIN, URINE AUTO NEGATIVE (NEGATIVE); RBC, URINE AUTO 1 /HPF (0-3); SPECIFIC GRAVITY URINE AUTO 1.013 (1.002-1.035); SQUAMOUS EPITHELIAL CELL UR AU 1 /HPF (0-6); UROBILINOGEN, URINE AUTO 0.2 mg/dL (0.0-2.0); WBC, URINE AUTO 4 /HPF (0-3)
== END ==
LOC: M SMT 11:07
DX: N13.39 Other hydronephrosis (principal); Z79.899 Other long term (current) drug therapy
CPT/HCPCS: 81001

== ENCOUNTER → 2017-11-06 | Outpatient (CLI) | payer MEDICARE ==
[~2017-11-06] MED LIST changes: -/WARF25TA; -AMLOD PO; -ANTIFUNGAL; -ASPI81CH32 PO; -ASPI81TA45; -COLA100C2; -FAMO1TAB11 PO; -GAS-80CH; -HYDR25TA6; -HYDR25TAB PO; -LEVO25TA5 PO; +LIDOCAINE 1% MDV 20ML VIAL As Ordered; -NAPR500T; -NORV5TAB; -OFLOXACIN 0.3 % (OCUFLOX) OPTH SOL 5ML OD ONE; -PAIN325T; -PARO15TA PO; -PAXI10TA; -PEPC20TA2; -PERC5TAB8; -PHENYLEPHRINE 2.5% OPHTH SOL 2ML OD ONE; -PROPARACAINE 0.5% OPHTH SOL 15ML OD ONE; -SENO8.6T5; -SIMV10TA2 PO; -THERGRAN; -TRAM50TA2; -TRIA1CR; -TROPICAMIDE 1% OPHTH SOLN 2ML OD ONE; -VALS80CA; -VALSAR PO; -ZOCO10TA; -[UNRECOGNIZED DRUG - CODE]; -[UNRECOGNIZED DRUG - OTHER]; -dulcolax; -exforge; -glucosamine/chondroi; -metamucil
== END ==
LOC: M RADPRO 10:41
DX: C50.412 Malignant neoplasm of upper-outer quadrant of left female breast (principal)
CPT/HCPCS: 19083

== ENCOUNTER 2017-11-15 08:00 | Day surgery (SDC) | payer MEDICARE ==
[2017-11-15] MEDS ORDERED: LR 1,000 ML IV ×2 (08:15→13:15)
[2017-11-15] MEDS: LIDOCAINE 5% (LIDODERM) PATCH TD (08:35)
[2017-11-15] MEDS ORDERED: LIDOCAINE 1% MDV 20ML VIAL As Ordered (10:00)
[2017-11-15] MEDS: LIDOCAINE 1% SDV INJ 30 ML VIAL As Ordered (11:38)
[2017-11-15] MEDS ORDERED: PROPOFOL 200 MG/20 ML VIAL As Ordered (11:45)
[2017-11-15] MEDS ORDERED: METOCLOPRAMIDE INJ 10MG/2ML VIAL (J2765) As Ordered (11:45)
[2017-11-15] MEDS ORDERED: LIDOCAINE 2% INJ 100 MG/5 ML SDV (FOR ANES.) As Ordered (11:45)
[2017-11-15] MEDS ORDERED: ROCURONIUM BROMIDE 50 MG/5 ML VIAL As Ordered (11:45)
[2017-11-15] MEDS ORDERED: fentaNYL 100 MCG/2 ML INJECTION (J3010) As Ordered ×2 (11:45→11:46)
[2017-11-15] MEDS ORDERED: ePHEDrine SULFATE 25 MG/5 ML(5MG/ML) SYRINGE As Ordered (11:55)
[2017-11-15] MEDS ORDERED: PHENYLephrine HCL 500 MCG/5 ML (100MCG/ML) SYRINGE (J2370) As Ordered (12:21)
[2017-11-15] MEDS ORDERED: ONDANSETRON 4MG/2ML VIAL (J2405) As Ordered (12:25)
[2017-11-15] MEDS ORDERED: NEOSTIGMINE 10 MG/10 ML VIAL (J2710) As Ordered (12:29)
[2017-11-15] MEDS ORDERED: GLYCOPYRROLATE INJ 0.2 MG/ML 2 ML VIAL As Ordered (12:29)
[2017-11-15] MEDS ORDERED: KETOROLAC 60 MG/2 ML VIAL (J1885) As Ordered (12:32)
[2017-11-15] MEDS ORDERED: ONDANSETRON 4MG/2ML VIAL (J2405) IV (13:15)
[2017-11-15] MEDS ORDERED: HYDROMORPHONE HCL 0.5 MG/ 0.5 ML SYRINGE (J1170 PER 1) IV (13:15)
[2017-11-15] MEDS ORDERED: fentaNYL 100 MCG/2 ML INJECTION (J3010) IV (13:15)
[2017-11-15] MEDS ORDERED: PERCOCET 5MG/325MG TAB PO (13:15)
[2017-11-15] MEDS ORDERED: NORCO, ANEXSIA 5/325MG TABLET (HYDROcodone/ACETAMINOPHEN) PO (13:30)
[2017-11-15] MEDS ORDERED: ACETAMINOPHEN TAB 650MG DOSE (2X325MG) PO (13:30)
== END 2017-11-15 14:35 | disposition home or self-care (01) ==
LOC: M SDC 08:00
DX: D05.12 Intraductal carcinoma in situ of left breast (principal); I10 Essential (primary) hypertension; E78.00 Pure hypercholesterolemia, unspecified; E03.9 Hypothyroidism, unspecified; K21.9 Gastro-esophageal reflux disease without esophagitis; M12.9 Arthropathy, unspecified; F41.9 Anxiety disorder, unspecified; F32.9 Major depressive disorder, single episode, unspecified; R32 Unspecified urinary incontinence; Z88.5 Allergy status to narcotic agent; Z79.899 Other long term (current) drug therapy; Z91.040 Latex allergy status; Z91.048 Other nonmedicinal substance allergy status; Z90.710 Acquired absence of both cervix and uterus; Z96.641 Presence of right artificial hip joint; Z96.652 Presence of left artificial knee joint; Z98.51 Tubal ligation status; Z96.1 Presence of intraocular lens
CPT/HCPCS: 19301

== ENCOUNTER → 2017-11-23 | Outpatient (CLI) | payer MEDICARE | LOC: M WHC 09:38 | DX: C50.912 Malignant neoplasm of unspecified site of left female breast (principal); M17.9 Osteoarthritis of knee, unspecified | CPT/HCPCS: 77080 ==

== ENCOUNTER → 2017-12-06 | Outpatient (CLI) | payer MEDICARE | LOC: M ONCR 10:04 | DX: C50.912 Malignant neoplasm of unspecified site of left female breast (principal) | CPT/HCPCS: G0463 ==

== ENCOUNTER → 2018-01-03 | Outpatient (REF) | payer MEDICARE | LOC: M SFHCPLAZ 17:28 | DX: C44.319 Basal cell carcinoma of skin of other parts of face (principal); C44.310 Basal cell carcinoma of skin of unspecified parts of face (principal) | CPT/HCPCS: 88305 ==

== ENCOUNTER → 2018-02-18 | Outpatient (REF) | payer MEDICARE ==
[~2018-02-18] MED LIST changes: +/WARF25TA; +AMLO-151 PO; +AMLO10TA5 OR; +AMLOD PO; +ANTIFUNGAL; +ASPI81CH32 PO; +ASPI81TA45; +CIPR-249 PO; +COLA100C2; +FAMO1TAB11 PO; +FLAG500T PO; +GAS-80CH; +HYDR25TA6; +HYDR25TAB PO; +LETR2.5T2 PO; +LEVO25TA5 PO; -LIDOCAINE 1% MDV 20ML VIAL As Ordered; +MILK120011 PO; +MIRA3350 PO; +NAPR500T; +NORV5TAB; +ONDA4TAB5 PO; +PAIN325T; +PARO15TA PO; +PARO30TA PO; +PAXI10TA; +PEPC20TA2; +PERC5TAB8; +SENO8.6T5; +SIMV10TA2 PO; +TELM1TAB PO; +THERGRAN; +TRAM50TA2; +TRIA1CR TOP; +VALS80CA; +VALSAR PO; +ZOCO10TA; +[UNRECOGNIZED DRUG - CODE]; +[UNRECOGNIZED DRUG - OTHER]; +dulcolax; +exforge; +glucosamine/chondroi; +metamucil
[2018-02-18 17:03] LABS: ALBUMIN 3.6 GM/DL (3.2-5.2); ALT/SGPT 17 U/L (12-78); BILIRUBIN,TOTAL 0.7 MG/DL (0.2-1.0); BLOOD UREA NITROGEN 15 MG/DL (7-18); CALCIUM LEVEL 8.6 MG/DL (8.8-10.2); CARBON DIOXIDE LEVEL 28 MEQ/L (21-32); CHLORIDE LEVEL 105 MEQ/L (98-107); CHOLESTEROL LEVEL 195 MG/DL (<200); CHOLESTEROL RISK RATIO 2.671 (<5); GLOMERULAR FILTRATION RATE > 60.0 (>32); GLUCOSE, FASTING 82 MG/DL (70-100); HDL CHOLESTEROL 73 MG/DL (>40); HEMOGLOBIN A1c 5.8 %; LDL CHOLESTEROL 103 MG/DL (<100); NON-HDL-C 122 MG/DL; SODIUM LEVEL 142 MEQ/L (136-145); TOTAL PROTEIN 7.1 GM/DL (6.4-8.2); TRIGLYCERIDES LEVEL 97 MG/DL (<150)
[2018-02-18 17:24] LABS: CREATININE, URINE 92.8 MG/DL; MALB URINE SIEMENS 20.3 MG/L; MAU/CREAT RATIO 21.8 MCG/MG (0.0-30.0)
== END ==
LOC: M SFHCCAPE 09:43
PROVIDERS: ATTEND Physician Assistant
DX: I10 Essential (primary) hypertension (principal); E03.9 Hypothyroidism, unspecified; E11.9 Type 2 diabetes mellitus without complications; E78.2 Mixed hyperlipidemia

== ENCOUNTER → 2018-06-27 | Outpatient (CLI) | payer MEDICARE ==
[~2018-06-27] MED LIST changes: -/WARF25TA; -ASPI81CH32 PO; +ASPI81CH33 PO; +COUM1TAB18; +TRIA0.1C60 TOP; -TRIA1CR TOP
--- NOTE | 2018-06-27 13:48 | REP ---
UNILATERAL MAMMOGRAM LEFT BREAST WITH 3D TOMOSYNTHESIS: Unilateral mammogram left breast performed with 3D tomosynthesis. Patient has had left lumpectomy in November 2017 for breast cancer. Comparison made with prior postbiopsy images 11/06/2017 as well as other prior exams. The previously noted nodule in the medial left breast has been surgically removed. There is mild scattered fibroglandular tissue in the left breast with no suspicious mass or clustered microcalcifications. IMPRESSION: BIRADS 1: BI-RADS/ACR category 1 mammogram. Negative Mammogram. Left breast. No mass or clustered microcalcifications. Patient is status post left lumpectomy for breast cancer. Suggest followup bilateral mammogram October 2018. This mammogram was interpreted with the aid of an FDA-approved computer-aided detection system. The patient states he/she had a clinical breast exam in 06/2018. The patient letter being requested is M1. Electronically Signed by Leroy Blanc MD 06/27/2018 04:38 P
== END ==
LOC: M RAD 12:08
PROVIDERS: ATTEND Internal Medicine Medical Oncology
DX: R92.8 Other abnormal and inconclusive findings on diagnostic imaging of breast (principal); Z85.3 Personal history of malignant neoplasm of breast
CPT/HCPCS: 77065; G0279

== ENCOUNTER → 2018-08-20 | Outpatient (REF) | payer MEDICARE ==
[2018-08-20 17:21] LABS: HEMOGLOBIN A1c 5.7 %
[2018-08-20 17:24] LABS: BASO # 0.1 10^3/uL (0.0-0.2); BASO % 0.8 % (0.0-1.0); EOS # 0.4 10^3/uL (0.0-0.50); EOS % 5.8 % (0.0-3.0); HEMATOCRIT 44.4 % (36.0-47.0); HEMOGLOBIN 14.1 g/dl (12.0-15.5); LYMPH # 1.3 10^3/uL (1.5-4.5); LYMPH % 20.5 % (24.0-44.0); MEAN CORPUSCULAR HGB CONC 31.8 g/dl (32.0-36.5); MEAN CORPUSCULAR VOLUME 94.5 fl (80.0-96.0); MONO # 0.6 10^3/uL (0.0-0.8); MONO % 9.5 % (0.0-5.0); NEUTROPHILS # 3.9 10^3/uL (1.8-7.7); NEUTROPHILS % 63.2 % (36.0-66.0); PLATELET COUNT, AUTOMATED 307 10^3/uL (150-450); WHITE BLOOD COUNT 6.2 10^3/uL (4.0-10.0)
[2018-08-20 17:39] LABS: ALBUMIN 3.6 GM/DL (3.2-5.2); ALT/SGPT 17 U/L (12-78); BILIRUBIN,TOTAL 0.7 MG/DL (0.2-1.0); BLOOD UREA NITROGEN 14 MG/DL (7-18); CALCIUM LEVEL 9.5 MG/DL (8.8-10.2); CARBON DIOXIDE LEVEL 28 MEQ/L (21-32); CHLORIDE LEVEL 108 MEQ/L (98-107); CHOLESTEROL LEVEL 195 MG/DL (<200); FREE T4 0.89 NG/DL (0.76-1.46); GLOMERULAR FILTRATION RATE > 60.0 (>32); GLUCOSE, FASTING 78 MG/DL (70-100); HDL CHOLESTEROL 78 MG/DL (>40); LDL CHOLESTEROL 97 MG/DL (<100); NON-HDL-C 117 MG/DL; SODIUM LEVEL 143 MEQ/L (136-145); TOTAL PROTEIN 7.4 GM/DL (6.4-8.2); TRIGLYCERIDES LEVEL 101 MG/DL (<150)
== END ==
LOC: M SFHCCAPE 09:50
PROVIDERS: ATTEND Physician Assistant
DX: I10 Essential (primary) hypertension (principal); E03.9 Hypothyroidism, unspecified; E11.9 Type 2 diabetes mellitus without complications

== ENCOUNTER → 2018-10-03 | Outpatient (REF) | payer MEDICARE ==
[2018-10-03 16:53] LABS: FREE T4 1.09 NG/DL (0.76-1.46); THYROID STIMULATING HORMONE 1.97 uIU/ML (0.358-3.740)
== END ==
LOC: M SFHCCAPE 09:49
PROVIDERS: ATTEND Physician Assistant
DX: E03.9 Hypothyroidism, unspecified (principal)

== ENCOUNTER → 2018-10-16 | Outpatient (CLI) | payer MEDICARE ==
--- NOTE | 2018-10-16 14:48 | REPMRS ---
Patient History The patient states she had a clinical breast exam in 2017. Malignant radio exam breast specimen of the left breast, November 15, 2017. Malignant localization of breast nodule of the left breast, November 15, 2017. Malignant US guided breast biopsy of the left breast, November 06, 2017. Taking tamoxifen for 6 months. Digital Mammo Screening Bilat: October 16, 2018 - Exam #: [id number] Bilateral CC and MLO view(s) were taken. Technologist: Lien Grey, Technologist Prior study comparison: June 27, 2018, left breast digital mammo diagnostic unilateral performed at [facility]. November 06, 2017, left breast digital mammo diagnostic unilateral performed at [facility]. October 16, 2017, bilateral digital woman screen mammo, performed at [facility]. FINDINGS: There are scattered fibroglandular densities. The nodular opacity noted previously in the left medial breast has been removed. There has been no change in the appearance of the mammogram from the prior studies. There is a mild amount of scattered fibroglandular density which is fairly symmetric. There is no interval development of dominant mass, architectural distortion, or grouped microcalcification suggestive of malignancy. 3-D tomosynthesis shows no additional findings. Assessment: BI-RADS/ACR category 1 mammogram. Negative Mammogram. Recommendation Routine screening mammogram of both breasts in 1 year (for women over age 40). This mammogram was interpreted with the aid of an FDA-approved computer-aided dectection system. Electronically Signed By: Maxwell Torres MD 10/16/18 [id number]
== END ==
LOC: M RAD 09:38
PROVIDERS: ATTEND Physician Assistant
DX: Z12.31 Encounter for screening mammogram for malignant neoplasm of breast (principal); Z85.3 Personal history of malignant neoplasm of breast

== ENCOUNTER → 2018-12-19 | Outpatient (CLI) | payer MEDICARE ==
--- NOTE | 2018-12-24 15:45 | DEXA ---
AP SPINE L1 - L4 1.507 2.5 4.4 LT FEMUR TOTAL 0.906 -0.8 1.3 LT NECK 0.823 -1.5 0.7 RT FEMUR TOTAL Right hip replacement. RT NECK Right hip replacement. TOTAL BODY TOTAL OTHER COMMENTS: Normal bone densitometry of the spine. There is low bone density of the left hip. The density of the spine has increased 9.2% since the initial exam on 03/26/2002. The spine density has increased 3.6% since the most recent exam on 11/23/2017. The density of the left hip has decreased 15.6% since the initial exam on 03/26/2002. The density of the left hip has increased 8.4% since the most recent exam on 11/23/2017. Right hip replacement. FOLLOW-UP: Recommendation for the next bone density exam: 2 years. TARIK
== END ==
LOC: M WHC 13:01
PROVIDERS: ATTEND Internal Medicine Medical Oncology
DX: Z51.81 Encounter for therapeutic drug level monitoring (principal); Z79.899 Other long term (current) drug therapy; C50.919 Malignant neoplasm of unspecified site of unspecified female breast; M85.852 Other specified disorders of bone density and structure, left thigh; Z96.651 Presence of right artificial knee joint

== ENCOUNTER → 2019-04-08 | Outpatient (REF) | payer MEDICARE ==
[~2019-04-08] MED LIST changes: -AMLO-151 PO; +AMLO-180 PO; +ONDA-83 PO; -ONDA4TAB5 PO; -SIMV10TA2 PO; +SIMV10TA21 PO; -TELM1TAB PO; +TELM1TAB35 PO
[2019-04-08 16:56] LABS: BASO # 0.1 10^3/uL (0.0-0.2); BASO % 1.6 % (0.0-1.0); EOS # 0.5 10^3/uL (0.0-0.5); EOS % 7.9 % (0.0-3.0); HEMOGLOBIN 14.5 g/dl (12.0-15.5); LYMPH # 1.2 10^3/uL (1.5-5.0); LYMPH % 18.8 % (24.0-44.0); MEAN CORPUSCULAR HGB CONC 32.2 g/dl (32.0-36.5); MONO # 0.8 10^3/uL (0.0-0.8); MONO % 11.6 % (0.0-5.0); NEUTROPHILS # 3.9 10^3/uL (1.5-8.5); NEUTROPHILS % 59.8 % (36.0-66.0); PLATELET COUNT, AUTOMATED 387 10^3/uL (150-450); RED BLOOD COUNT 4.84 10^6/uL (4.00-5.40); WHITE BLOOD COUNT 6.5 10^3/uL (4.0-10.0)
[2019-04-08 17:14] LABS: ALBUMIN 3.7 GM/DL (3.2-5.2); ALT/SGPT 17 U/L (12-78); BILIRUBIN,TOTAL 0.4 MG/DL (0.2-1.0); BLOOD UREA NITROGEN 21 MG/DL (7-18); CALCIUM LEVEL 9.3 MG/DL (8.8-10.2); CARBON DIOXIDE LEVEL 30 MEQ/L (21-32); CHLORIDE LEVEL 104 MEQ/L (98-107); CHOLESTEROL LEVEL 211 MG/DL (<200); CREATININE FOR GFR 0.94 MG/DL (0.55-1.30); FREE T4 1.16 NG/DL (0.76-1.46); GLOMERULAR FILTRATION RATE > 60.0 (>32); GLUCOSE, FASTING 88 MG/DL (70-100); HDL CHOLESTEROL 72 MG/DL (>40); LDL CHOLESTEROL 121 MG/DL (<100); NON-HDL-C 139 MG/DL; POTASSIUM SERUM 3.9 MEQ/L (3.5-5.1); SODIUM LEVEL 140 MEQ/L (136-145); TOTAL PROTEIN 7.1 GM/DL (6.4-8.2); TRIGLYCERIDES LEVEL 90 MG/DL (<150)
== END ==
LOC: M SFHCCAPE 09:57
PROVIDERS: ATTEND Physician Assistant
DX: E03.9 Hypothyroidism, unspecified (principal)

== ENCOUNTER → 2019-09-02 | Outpatient (REF) | payer MEDICARE ==
[~2019-09-02] MED LIST changes: -PARO15TA PO; -PARO30TA PO; +PARO30TA4 PO; +PARO30TA65 PO
== END ==
LOC: M SFHCCLAY 12:39
PROVIDERS: ATTEND Physician Assistant
DX: R30.0 Dysuria (principal)

== ENCOUNTER → 2019-10-20 | Outpatient (CLI) | payer MEDICARE ==
[~2019-10-20] MED LIST changes: -AMLO10TA5 OR; +AMLO1TAB25 OR
--- NOTE | 2019-10-29 10:32 | REPMRS ---
Patient History The patient states she has not had a clinical breast exam in over a year. Patient has history of cancer in the left breast at age 82. Malignant radio exam breast specimen of the left breast, November 15, 2017. Malignant localization of breast nodule of the left breast, November 15, 2017. Malignant US guided breast biopsy of the left breast, November 06, 2017. Taking tamoxifen for 6 months. Digital Woman Screen Mammo: October 20, 2019 - Exam #: [id number] Bilateral CC and MLO view(s) were taken. Technologist: Kinjal Paz, Technologist Prior study comparison: October 16, 2018, bilateral digital mammo screening bilat performed at [facility]. June 27, 2018, left breast digital mammo diagnostic unilateral performed at [facility]. October 16, 2017, bilateral digital woman screen mammo, performed at [facility]. October 14, 2016, bilateral digital woman screen mammo, performed at [facility]. FINDINGS: There are scattered fibroglandular densities. The Volpara volumetric breast density category is:B. There has been no change in the appearance of the mammogram from the prior studies. There is a mild amount of scattered fibroglandular density which is fairly symmetric. There is no interval development of dominant mass, architectural distortion, or grouped microcalcification suggestive of malignancy. 3-D tomosynthesis shows no additional findings. Assessment: BI-RADS/ACR category 1 mammogram. Negative Mammogram. Recommendation Routine screening mammogram of both breasts in 1 year (for women over age 40). This mammogram was interpreted with the aid of an FDA-approved computer-aided dectection system. Electronically Signed By: Maxwell Torres MD 10/29/19 [id number]
== END ==
LOC: M WHC 10:00
PROVIDERS: ATTEND Physician Assistant
DX: Z12.31 Encounter for screening mammogram for malignant neoplasm of breast (principal); Z85.3 Personal history of malignant neoplasm of breast; Z79.899 Other long term (current) drug therapy

== ENCOUNTER → 2019-11-04 | Outpatient (REF) | payer MEDICARE ==
[2019-11-05 14:27] LABS: BASO # 0.1 10^3/uL (0.0-0.2); BASO % 0.9 % (0.0-1.0); EOS # 0.4 10^3/uL (0.0-0.5); EOS % 6.4 % (0.0-3.0); HEMATOCRIT 43.5 % (36.0-47.0); HEMOGLOBIN 14.1 g/dl (12.0-15.5); LYMPH # 1.4 10^3/uL (1.5-5.0); LYMPH % 19.6 % (24.0-44.0); MEAN CORPUSCULAR HEMOGLOBIN 30.2 pg (27.0-33.0); MEAN CORPUSCULAR HGB CONC 32.4 g/dl (32.0-36.5); MEAN CORPUSCULAR VOLUME 93.1 fl (80.0-96.0); MONO # 0.9 10^3/uL (0.0-0.8); MONO % 12.8 % (0.0-5.0); NEUTROPHILS # 4.2 10^3/uL (1.5-8.5); NEUTROPHILS % 60.2 % (36.0-66.0); PLATELET COUNT, AUTOMATED 334 10^3/uL (150-450); RED BLOOD COUNT 4.67 10^6/uL (4.00-5.40); WHITE BLOOD COUNT 6.9 10^3/uL (4.0-10.0)
[2019-11-05 14:59] LABS: ALBUMIN 3.7 GM/DL (3.2-5.2); ALT/SGPT 14 U/L (12-78); BILIRUBIN,TOTAL 0.7 MG/DL (0.2-1.0); BLOOD UREA NITROGEN 17 MG/DL (7-18); CALCIUM LEVEL 9.1 MG/DL (8.8-10.2); CARBON DIOXIDE LEVEL 28 MEQ/L (21-32); CHLORIDE LEVEL 106 MEQ/L (98-107); CHOLESTEROL LEVEL 180 MG/DL (<200); CHOLESTEROL RISK RATIO 2.857 (<5); FREE T4 1.14 NG/DL (0.76-1.46); GLOMERULAR FILTRATION RATE > 60.0 (>32); GLUCOSE, FASTING 79 MG/DL (70-100); HDL CHOLESTEROL 63 MG/DL (>40); LDL CHOLESTEROL 100 MG/DL (<100); NON-HDL-C 117 MG/DL; POTASSIUM SERUM 3.7 MEQ/L (3.5-5.1); SODIUM LEVEL 139 MEQ/L (136-145); TRIGLYCERIDES LEVEL 85 MG/DL (<150)
[2019-11-05 15:59] LABS: HEMOGLOBIN A1c 5.4 %
== END ==
LOC: M LABDRAWC 15:35
PROVIDERS: ATTEND Physician Assistant
DX: F32.9 Major depressive disorder, single episode, unspecified (principal); E78.2 Mixed hyperlipidemia; E03.9 Hypothyroidism, unspecified

== ENCOUNTER → 2020-06-15 | Outpatient (REF) | payer MEDICARE ==
[~2020-06-15] MED LIST changes: +HYDR-3490 PO; -HYDR25TAB PO
[2020-06-15 16:36] LABS: BASO # 0.1 10^3/uL (0.0-0.2); BASO % 1.4 % (0.0-1.0); EOS # 0.4 10^3/uL (0.0-0.5); EOS % 4.5 % (0.0-3.0); HEMATOCRIT 45.2 % (36.0-47.0); HEMOGLOBIN 14.7 g/dl (12.0-15.5); LYMPH # 1.3 10^3/uL (1.5-5.0); LYMPH % 16.8 % (24.0-44.0); MEAN CORPUSCULAR HEMOGLOBIN 29.9 pg (27.0-33.0); MEAN CORPUSCULAR HGB CONC 32.5 g/dl (32.0-36.5); MEAN CORPUSCULAR VOLUME 92.1 fl (80.0-96.0); MONO # 0.9 10^3/uL (0.0-0.8); MONO % 11.3 % (2.0-8.0); NEUTROPHILS # 5.1 10^3/uL (1.5-8.5); NEUTROPHILS % 65.5 % (36.0-66.0); PLATELET COUNT, AUTOMATED 439 10^3/uL (150-450); RED BLOOD COUNT 4.91 10^6/uL (4.00-5.40); WHITE BLOOD COUNT 7.9 10^3/uL (4.0-10.0)
[2020-06-15 16:44] LABS: ALBUMIN 3.8 GM/DL (3.2-5.2); BILIRUBIN,TOTAL 0.6 MG/DL (0.2-1.0); CALCIUM LEVEL 10.1 MG/DL (8.8-10.2); CHOLESTEROL RISK RATIO 2.733 (<5); CREATININE FOR GFR 0.95 MG/DL (0.55-1.30); FREE T4 1.05 NG/DL (0.76-1.46); GLOMERULAR FILTRATION RATE 59.8 (>32); POTASSIUM SERUM 3.8 MEQ/L (3.5-5.1); THYROID STIMULATING HORMONE 2.77 uIU/ML (0.358-3.740); TOTAL PROTEIN 7.2 GM/DL (6.4-8.2)
[2020-06-15 16:58] LABS: HEMOGLOBIN A1c 5.3 %
== END ==
LOC: M SFHCCAPE 10:54
PROVIDERS: ATTEND Physician Assistant
DX: E78.2 Mixed hyperlipidemia (principal); E03.9 Hypothyroidism, unspecified; E11.9 Type 2 diabetes mellitus without complications

== ENCOUNTER → 2020-06-29 | Outpatient (REF) | payer MEDICARE | LOC: M SFHCCAPE 16:07 | PROVIDERS: ATTEND Physician Assistant | DX: E11.9 Type 2 diabetes mellitus without complications (principal); Z23 Encounter for immunization | CPT/HCPCS: 82043; 90472; 90715; 90732; G0009 ==

== ENCOUNTER → 2020-10-03 | Outpatient (REF) | payer MEDICARE | LOC: M WUC 17:45 | PROVIDERS: ATTEND Physician Assistant | DX: R10.9 Unspecified abdominal pain (principal) ==

== ENCOUNTER → 2021-01-10 | Outpatient (REF) | payer MEDICARE ==
[2021-01-10 16:44] LABS: BASO # 0.1 10^3/uL (0.0-0.2); BASO % 0.9 % (0.0-1.0); EOS # 0.4 10^3/uL (0.0-0.5); EOS % 5.1 % (0.0-3.0); HEMATOCRIT 43.3 % (36.0-47.0); HEMOGLOBIN 14.2 g/dl (12.0-15.5); LYMPH # 1.3 10^3/uL (1.5-5.0); LYMPH % 18.1 % (24.0-44.0); MEAN CORPUSCULAR HEMOGLOBIN 30.1 pg (27.0-33.0); MEAN CORPUSCULAR HGB CONC 32.8 g/dl (32.0-36.5); MEAN CORPUSCULAR VOLUME 91.9 fl (80.0-96.0); MONO # 0.8 10^3/uL (0.0-0.8); MONO % 11.3 % (2.0-8.0); NEUTROPHILS # 4.5 10^3/uL (1.5-8.5); NEUTROPHILS % 64.3 % (36.0-66.0); RED BLOOD COUNT 4.71 10^6/uL (4.00-5.40)
[2021-01-10 17:13] LABS: ALBUMIN 3.6 GM/DL (3.2-5.2); ALT/SGPT 17 U/L (12-78); BILIRUBIN,TOTAL 0.7 MG/DL (0.2-1.0); BLOOD UREA NITROGEN 19 MG/DL (7-18); CALCIUM LEVEL 9.5 MG/DL (8.8-10.2); CARBON DIOXIDE LEVEL 27 MEQ/L (21-32); CHLORIDE LEVEL 104 MEQ/L (98-107); CHOLESTEROL LEVEL 192 MG/DL (<200); CREATININE FOR GFR 0.81 MG/DL (0.55-1.30); GLOMERULAR FILTRATION RATE > 60.0 (>32); GLUCOSE, FASTING 88 MG/DL (70-100); HDL CHOLESTEROL 79 MG/DL (>40); LDL CHOLESTEROL 96 MG/DL (<100); NON-HDL-C 113 MG/DL; POTASSIUM SERUM 4.7 MEQ/L (3.5-5.1); SODIUM LEVEL 139 MEQ/L (136-145); TOTAL PROTEIN 7.2 GM/DL (6.4-8.2); TRIGLYCERIDES LEVEL 87 MG/DL (<150)
[2021-01-10 17:31] LABS: HEMOGLOBIN A1c 5.3 %
[2021-01-10 17:48] LABS: PLATELET COUNT, AUTOMATED 311 10^3/uL (150-450)
== END ==
LOC: M SFHCCAPE 10:52
PROVIDERS: ATTEND Physician Assistant
DX: E03.9 Hypothyroidism, unspecified (principal); E11.9 Type 2 diabetes mellitus without complications

== ENCOUNTER 2021-06-07 11:51 | Inpatient (IN) | payer MEDICARE ==
[~2021-06-07] VITALS: Ht 149.9 cm; Wt 87.2 kg
[~2021-06-07 11:51] MED LIST changes: -AMLO1TAB25 OR; +AMLO1TAB25 PO
[2021-06-07] MEDS ORDERED: ONDANSETRON 4MG/2ML VIAL IV ONE (13:00)
[2021-06-07] MEDS: fentaNYL 100 MCG/2 ML INJECTION IV PRN ×2 (13:15→14:14)
[2021-06-07] MEDS ORDERED: NS 1,000 ML IV SCH (13:50)
[2021-06-07 14:11] LABS: BASO # 0.1 10^3/uL (0.0-0.2); BASO % 0.6 % (0.0-1.0); EOS # 0.1 10^3/uL (0.0-0.5); EOS % 0.7 % (0.0-3.0); HEMATOCRIT 43.6 % (36.0-47.0); HEMOGLOBIN 14.5 g/dl (12.0-15.5); LYMPH # 0.7 10^3/uL (1.5-5.0); LYMPH % 7.2 % (24.0-44.0); MEAN CORPUSCULAR HEMOGLOBIN 30.1 pg (27.0-33.0); MEAN CORPUSCULAR HGB CONC 33.3 g/dl (32.0-36.5); MEAN CORPUSCULAR VOLUME 90.5 fl (80.0-96.0); MONO # 0.8 10^3/uL (0.0-0.8); MONO % 8.8 % (2.0-8.0); NEUTROPHILS # 7.4 10^3/uL (1.5-8.5); NEUTROPHILS % 82.4 % (36.0-66.0); PLATELET COUNT, AUTOMATED 341 10^3/uL (150-450); RED BLOOD COUNT 4.82 10^6/uL (4.00-5.40)
[2021-06-07 14:27] LABS: INR 1.14
[2021-06-07 14:28] LABS: PARTIAL THROMBOPLASTIN TIME 31.5 SECONDS (25.9-37.0)
[2021-06-07 14:40] LABS: CALCIUM LEVEL 9.3 MG/DL (8.8-10.2); CREATININE FOR GFR 0.96 MG/DL (0.55-1.30); GLOMERULAR FILTRATION RATE 58.9 (>32)
[2021-06-07 15:18] LABS: RSV AMPLIFICATION NEGATIVE (NEGATIVE)
[2021-06-07] MEDS ORDERED: LETR2.5T2 PO (15:19)
[2021-06-07] MEDS ORDERED: PARO40TA3 PO (15:19)
[2021-06-07] MEDS ORDERED: HOME MED LIST COMPLETE! XX SCH (15:20)
[2021-06-07] MEDS ORDERED: ONDANSETRON 4MG/2ML VIAL IV PRN (17:05)
[2021-06-07] MEDS ORDERED: MORPHINE 4 MG/ML 1ML VIAL/SYRINGE IV PRN (17:05)
[2021-06-07 18:00] VITALS: BP 106/67
[2021-06-07] MEDS: D5W/0.9% SODIUM CHLORIDE 1,000 ML IV SCH (18:25)
[2021-06-07 18:38] LABS: ALBUMIN 3.6 GM/DL (3.2-5.2)
[2021-06-07 18:53] LABS: TOTAL 25(OH) VITAMIN D 13.5 NG/ML (30.0-100.0)
[2021-06-07] MEDS ORDERED: PERCOCET 5MG/325MG TAB PO ONE (18:55)
[2021-06-07] MEDS ORDERED: HYDROMORPHONE HCL 0.5 MG/ 0.5 ML SYRINGE (J1170 PER 1) IV PRN (18:55)
[2021-06-07] MEDS ORDERED: ACETAMINOPHEN TAB 650MG DOSE (2X325MG) PO PRN (18:55)
[2021-06-07] MEDS: LETROZOLE 2.5 MG TAB PO SCH (21:55)
[2021-06-07] MEDS: SIMVASTATIN 10 MG TAB PO SCH (21:55)
[2021-06-07 22:00] VITALS: BP 104/52
[2021-06-07] MEDS ORDERED: NS 1,000 ML IV ONE (23:00)
[2021-06-08] VITALS (10 sets, daily range): BP systolic 100–117; BP diastolic 52–78
[2021-06-08 04:57] LABS: BASO % 0.6 % (0.0-1.0); EOS # 0.5 10^3/uL (0.0-0.5); EOS % 7.5 % (0.0-3.0); HEMATOCRIT 38.7 % (36.0-47.0); HEMOGLOBIN 12.6 g/dl (12.0-15.5); LYMPH # 1.2 10^3/uL (1.5-5.0); LYMPH % 17.5 % (24.0-44.0); MEAN CORPUSCULAR HEMOGLOBIN 29.9 pg (27.0-33.0); MEAN CORPUSCULAR HGB CONC 32.6 g/dl (32.0-36.5); MEAN CORPUSCULAR VOLUME 91.9 fl (80.0-96.0); MONO # 1.1 10^3/uL (0.0-0.8); MONO % 16.6 % (2.0-8.0); NEUTROPHILS # 3.9 10^3/uL (1.5-8.5); NEUTROPHILS % 57.5 % (36.0-66.0); PLATELET COUNT, AUTOMATED 307 10^3/uL (150-450); RED BLOOD COUNT 4.21 10^6/uL (4.00-5.40); WHITE BLOOD COUNT 6.8 10^3/uL (4.0-10.0)
[2021-06-08 05:21] LABS: BLOOD UREA NITROGEN 19 MG/DL (7-18); CALCIUM LEVEL 7.9 MG/DL (8.8-10.2); CARBON DIOXIDE LEVEL 26 MEQ/L (21-32); CHLORIDE LEVEL 113 MEQ/L (98-107); CREATININE FOR GFR 0.64 MG/DL (0.55-1.30); GLOMERULAR FILTRATION RATE > 60.0 (>32); GLUCOSE, FASTING 103 MG/DL (70-100); POTASSIUM SERUM 4.2 MEQ/L (3.5-5.1); SODIUM LEVEL 142 MEQ/L (136-145)
[2021-06-08] MEDS: LEVOTHYROXINE 25MCG TABLET (0.025MG) PO SCH (06:20)
[2021-06-08] MEDS: D5W/0.9% SODIUM CHLORIDE 1,000 ML IV SCH ×2 (06:25→08:29)
[2021-06-08] MEDS ORDERED: HYDROmorphone HCL 2MG/ML 1ML VIAL As Ordered ONE (10:28)
[2021-06-08] MEDS ORDERED: dexameTHASONE 4 MG/ML 1ML VIAL (J1100 PER 1MG) As Ordered ONE (10:28)
[2021-06-08] MEDS ORDERED: ROCURONIUM BROMIDE 50 MG/5 ML VIAL As Ordered ONE (10:28)
[2021-06-08] MEDS ORDERED: MIDAZOLAM INJ 2MG/2ML VIAL (J2250 PER 1MG) As Ordered ONE (10:28)
[2021-06-08] MEDS ORDERED: ONDANSETRON 4MG/2ML VIAL As Ordered ONE (10:28)
[2021-06-08] MEDS ORDERED: propofoL 200 MG/20 ML VIAL As Ordered ONE (10:28)
[2021-06-08] MEDS ORDERED: LIDOCAINE 2% 100MG/5ML SDV (FOR ANES.) As Ordered ONE (10:28)
[2021-06-08] MEDS ORDERED: fentaNYL 100 MCG/2 ML INJECTION As Ordered ONE (10:28)
[2021-06-08] MEDS ORDERED: ACETAMINOPHEN 1000MG 100ML IV BTL (OFIRMEV) (J0131 PER 10MG) As Ordered ONE (10:34)
[2021-06-08] MEDS: CLOTRIMAZOLE 1% TOPICAL CREAM 30GM TOP SCH ×2 (11:37→20:12)
[2021-06-08] MEDS ORDERED: VANCOMYCIN 1000MG/20ML VIAL As Ordered ONE (12:22)
[2021-06-08] MEDS ORDERED: BUPIVACAINE LIPOSOME/PF 1.3% 20ML VIAL (13.3MG/ML)(EXPAREL) As Ordered ONE (12:22)
[2021-06-08] MEDS ORDERED: LIDOCAINE W/EPINEPHRINE 1% 20ML VIAL As Ordered ONE (12:22)
[2021-06-08] MEDS ORDERED: TRANEXAMIC ACID 100 MG/ML 10ML VIAL As Ordered ONE (12:22)
[2021-06-08] MEDS ORDERED: BUPIVACAINE HCL 0.25% 30ML VIAL As Ordered ONE (12:22)
[2021-06-08] MEDS ORDERED: ceFAZolin 2 GM/D5W 50 ML IV BAG (J0690 PER 500MG) As Ordered ONE (12:34)
[2021-06-08] MEDS ORDERED: PHENYLephrine 500MCG 5ML (100MCG/ML) SYRINGE As Ordered ONE ×2 (13:12→14:31)
[2021-06-08] MEDS ORDERED: ePHEDrine SULFATE 25 MG/5 ML(5MG/ML) SYRINGE As Ordered ONE (13:12)
[2021-06-08] MEDS ORDERED: SUGAMMADEX SODIUM 500 MG/5 ML VIAL (BRIDION) As Ordered ONE (14:23)
[2021-06-08] MEDS ORDERED: LR 1,000 ML IV SCH (15:35)
[2021-06-08] MEDS ORDERED: fentaNYL 100 MCG/2 ML INJECTION IV PRN (15:35)
[2021-06-08] MEDS ORDERED: PERCOCET 5MG/325MG TAB PO PRN (15:35)
[2021-06-08] MEDS: ASPIRIN 81MG ENTERIC TABLET PO SCH (20:12)
[2021-06-08] MEDS: SIMVASTATIN 10 MG TAB PO SCH (20:12)
[2021-06-08] MEDS: LETROZOLE 2.5 MG TAB PO SCH (20:12)
[2021-06-09 02:00] VITALS: BP 109/60
[2021-06-09] MEDS: LEVOTHYROXINE 25MCG TABLET (0.025MG) PO SCH (05:00)
[2021-06-09 05:09] LABS: BASO % 0.3 % (0.0-1.0); EOS % 0.3 % (0.0-3.0); HEMATOCRIT 34.4 % (36.0-47.0); HEMOGLOBIN 11.4 g/dl (12.0-15.5); LYMPH % 10.7 % (24.0-44.0); MEAN CORPUSCULAR HEMOGLOBIN 30.6 pg (27.0-33.0); MEAN CORPUSCULAR HGB CONC 33.1 g/dl (32.0-36.5); MEAN CORPUSCULAR VOLUME 92.5 fl (80.0-96.0); MONO # 1.2 10^3/uL (0.0-0.8); MONO % 12.6 % (2.0-8.0); NEUTROPHILS # 7.1 10^3/uL (1.5-8.5); NEUTROPHILS % 75.9 % (36.0-66.0); PLATELET COUNT, AUTOMATED 248 10^3/uL (150-450); RED BLOOD COUNT 3.72 10^6/uL (4.00-5.40); WHITE BLOOD COUNT 9.4 10^3/uL (4.0-10.0)
[2021-06-09 05:43] LABS: BLOOD UREA NITROGEN 15 MG/DL (7-18); CALCIUM LEVEL 8.4 MG/DL (8.8-10.2); CARBON DIOXIDE LEVEL 27 MEQ/L (21-32); CHLORIDE LEVEL 110 MEQ/L (98-107); CREATININE FOR GFR 0.67 MG/DL (0.55-1.30); GLOMERULAR FILTRATION RATE > 60.0 (>32); GLUCOSE, FASTING 115 MG/DL (70-100); POTASSIUM SERUM 4.5 MEQ/L (3.5-5.1); SODIUM LEVEL 139 MEQ/L (136-145)
[2021-06-09 06:00] VITALS: BP 111/58
[2021-06-09 07:54] VITALS: BP 114/60
[2021-06-09] MEDS: ASPIRIN 81MG ENTERIC TABLET PO SCH ×2 (08:18→22:02)
[2021-06-09] MEDS: CLOTRIMAZOLE 1% TOPICAL CREAM 30GM TOP SCH ×2 (08:19→22:03)
[2021-06-09] MEDS ORDERED: PERCOCET 5MG/325MG TAB PO PRN ×2 (11:00)
[2021-06-09] MEDS: MIRALAX *UNIT DOSE* 17GM PACKET PO SCH (12:29)
[2021-06-09] MEDS: SENOKOT S TAB PO SCH ×2 (12:30→22:02)
[2021-06-09 14:00] VITALS: BP 103/51
[2021-06-09 18:00] VITALS: BP 106/53
[2021-06-09 22:00] VITALS: BP 130/76
[2021-06-09] MEDS ORDERED: FAMOTIDINE 20 MG TAB PO ONE (22:00)
[2021-06-09] MEDS: LETROZOLE 2.5 MG TAB PO SCH (22:02)
[2021-06-09] MEDS: SIMVASTATIN 10 MG TAB PO SCH (22:02)
[2021-06-10] VITALS (11 sets, daily range): BP systolic 96–109; BP diastolic 50–60; O2SAT 87–96
[2021-06-10] MEDS: LEVOTHYROXINE 25MCG TABLET (0.025MG) PO SCH (05:25)
[2021-06-10 06:08] LABS: BASO # 0.1 10^3/uL (0.0-0.2); BASO % 0.7 % (0.0-1.0); EOS # 0.6 10^3/uL (0.0-0.5); EOS % 6.8 % (0.0-3.0); HEMATOCRIT 34.4 % (36.0-47.0); HEMOGLOBIN 11.2 g/dl (12.0-15.5); LYMPH # 1.4 10^3/uL (1.5-5.0); LYMPH % 16.6 % (24.0-44.0); MEAN CORPUSCULAR HEMOGLOBIN 30.4 pg (27.0-33.0); MEAN CORPUSCULAR HGB CONC 32.6 g/dl (32.0-36.5); MEAN CORPUSCULAR VOLUME 93.5 fl (80.0-96.0); MONO # 1.1 10^3/uL (0.0-0.8); MONO % 12.9 % (2.0-8.0); NEUTROPHILS # 5.2 10^3/uL (1.5-8.5); NEUTROPHILS % 62.6 % (36.0-66.0); PLATELET COUNT, AUTOMATED 212 10^3/uL (150-450); RED BLOOD COUNT 3.68 10^6/uL (4.00-5.40); WHITE BLOOD COUNT 8.3 10^3/uL (4.0-10.0)
[2021-06-10 06:34] LABS: BLOOD UREA NITROGEN 16 MG/DL (7-18); CALCIUM LEVEL 8.1 MG/DL (8.8-10.2); CARBON DIOXIDE LEVEL 29 MEQ/L (21-32); CHLORIDE LEVEL 112 MEQ/L (98-107); GLOMERULAR FILTRATION RATE > 60.0 (>32); GLUCOSE, FASTING 88 MG/DL (70-100); POTASSIUM SERUM 4.4 MEQ/L (3.5-5.1); SODIUM LEVEL 143 MEQ/L (136-145)
[2021-06-10] MEDS ORDERED: FAMOTIDINE 20 MG TAB PO SCH (09:00)
[2021-06-10] MEDS: SENOKOT S TAB PO SCH ×2 (10:19→21:51)
[2021-06-10] MEDS: PARoxetine 20MG TABLET PO SCH (10:19)
[2021-06-10] MEDS: ASPIRIN 81MG ENTERIC TABLET PO SCH ×2 (10:19→21:51)
[2021-06-10] MEDS: MIRALAX *UNIT DOSE* 17GM PACKET PO SCH (10:20)
[2021-06-10] MEDS: CLOTRIMAZOLE 1% TOPICAL CREAM 30GM TOP SCH (10:20)
[2021-06-10] MEDS ORDERED: MOM 30ML SUSPENSION UDC PO ONE (10:30)
[2021-06-10] MEDS ORDERED: FUROSEMIDE 100MG/10ML VIAL (J1940) IV ONE (10:30)
[2021-06-10] MEDS ORDERED: FUROSEMIDE 20MG/2ML VIAL (J1940) IV ONE (11:25)
[2021-06-10] MEDS: FAMOTIDINE 20 MG TAB PO SCH (21:51)
[2021-06-10] MEDS: MYCOLOG CREAM 15 GM (NYSTATIN/TRIAMCINOLONE) TOP SCH (21:51)
[2021-06-10] MEDS: LETROZOLE 2.5 MG TAB PO SCH (21:51)
[2021-06-10] MEDS: SIMVASTATIN 10 MG TAB PO SCH (21:51)
[2021-06-11 01:21] VITALS: O2SAT 91
[2021-06-11] MEDS: LEVOTHYROXINE 25MCG TABLET (0.025MG) PO SCH (05:40)
[2021-06-11 06:00] VITALS: BP 115/60
[2021-06-11 07:00] LABS: BASO # 0.1 10^3/uL (0.0-0.2); BASO % 0.7 % (0.0-1.0); EOS # 0.7 10^3/uL (0.0-0.5); EOS % 8.3 % (0.0-3.0); HEMATOCRIT 33.4 % (36.0-47.0); LYMPH # 1.5 10^3/uL (1.5-5.0); LYMPH % 18.1 % (24.0-44.0); MEAN CORPUSCULAR HEMOGLOBIN 29.9 pg (27.0-33.0); MEAN CORPUSCULAR HGB CONC 32.9 g/dl (32.0-36.5); MEAN CORPUSCULAR VOLUME 90.8 fl (80.0-96.0); MONO % 12.4 % (2.0-8.0); PLATELET COUNT, AUTOMATED 273 10^3/uL (150-450); RED BLOOD COUNT 3.68 10^6/uL (4.00-5.40); WHITE BLOOD COUNT 8.4 10^3/uL (4.0-10.0)
[2021-06-11 07:31] LABS: BLOOD UREA NITROGEN 18 MG/DL (7-18); CALCIUM LEVEL 8.3 MG/DL (8.8-10.2); CARBON DIOXIDE LEVEL 30 MEQ/L (21-32); CHLORIDE LEVEL 107 MEQ/L (98-107); CREATININE FOR GFR 0.68 MG/DL (0.55-1.30); GLOMERULAR FILTRATION RATE > 60.0 (>32); GLUCOSE, FASTING 100 MG/DL (70-100); POTASSIUM SERUM 3.8 MEQ/L (3.5-5.1); SODIUM LEVEL 141 MEQ/L (136-145)
[2021-06-11] MEDS: SENOKOT S TAB PO SCH ×2 (10:14→20:00)
[2021-06-11] MEDS: MIRALAX *UNIT DOSE* 17GM PACKET PO SCH (10:14)
[2021-06-11] MEDS: MYCOLOG CREAM 15 GM (NYSTATIN/TRIAMCINOLONE) TOP SCH ×2 (10:15→20:00)
[2021-06-11] MEDS: ASPIRIN 81MG ENTERIC TABLET PO SCH ×2 (10:15→20:00)
[2021-06-11] MEDS: PARoxetine 20MG TABLET PO SCH (10:15)
[2021-06-11] MEDS: LETROZOLE 2.5 MG TAB PO SCH (20:00)
[2021-06-11] MEDS: FAMOTIDINE 20 MG TAB PO SCH (20:00)
[2021-06-11] MEDS: SIMVASTATIN 10 MG TAB PO SCH (20:00)
[2021-06-12] VITALS (7 sets, daily range): BP systolic 72–137; BP diastolic 51–82; O2SAT 90
[2021-06-12] MEDS: LEVOTHYROXINE 25MCG TABLET (0.025MG) PO SCH (05:47)
[2021-06-12 06:47] LABS: BASO # 0.1 10^3/uL (0.0-0.2); BASO % 0.6 % (0.0-1.0); EOS # 0.8 10^3/uL (0.0-0.5); EOS % 8.3 % (0.0-3.0); HEMOGLOBIN 11.5 g/dl (12.0-15.5); LYMPH % 21.5 % (24.0-44.0); MEAN CORPUSCULAR HEMOGLOBIN 29.9 pg (27.0-33.0); MEAN CORPUSCULAR HGB CONC 32.9 g/dl (32.0-36.5); MEAN CORPUSCULAR VOLUME 90.9 fl (80.0-96.0); MONO # 1.1 10^3/uL (0.0-0.8); MONO % 12.1 % (2.0-8.0); NEUTROPHILS # 5.3 10^3/uL (1.5-8.5); PLATELET COUNT, AUTOMATED 326 10^3/uL (150-450); RED BLOOD COUNT 3.85 10^6/uL (4.00-5.40); WHITE BLOOD COUNT 9.3 10^3/uL (4.0-10.0)
[2021-06-12 07:08] LABS: BLOOD UREA NITROGEN 17 MG/DL (7-18); CALCIUM LEVEL 8.1 MG/DL (8.8-10.2); CARBON DIOXIDE LEVEL 28 MEQ/L (21-32); CHLORIDE LEVEL 106 MEQ/L (98-107); CREATININE FOR GFR 0.68 MG/DL (0.55-1.30); GLOMERULAR FILTRATION RATE > 60.0 (>32); GLUCOSE, FASTING 100 MG/DL (70-100); POTASSIUM SERUM 3.6 MEQ/L (3.5-5.1); SODIUM LEVEL 139 MEQ/L (136-145)
[2021-06-12] MEDS: SENOKOT S TAB PO SCH ×2 (09:00→21:00)
[2021-06-12] MEDS: MIRALAX *UNIT DOSE* 17GM PACKET PO SCH (09:00)
[2021-06-12] MEDS: PARoxetine 20MG TABLET PO SCH (09:13)
[2021-06-12] MEDS: ASPIRIN 81MG ENTERIC TABLET PO SCH ×2 (09:13→22:36)
[2021-06-12] MEDS: MYCOLOG CREAM 15 GM (NYSTATIN/TRIAMCINOLONE) TOP SCH ×2 (09:14→22:39)
[2021-06-12] MEDS ORDERED: METOPROLOL TART 25 MG TABLET PO SCH (12:00)
[2021-06-12] MEDS ORDERED: DIGOXIN 0.25 MG TAB PO ONE (15:00)
[2021-06-12] MEDS ORDERED: NS 500 ML IV ONE (15:25)
[2021-06-12] MEDS ORDERED: GI COCKTAIL 50ML BTL(HYOSCYAMINE/MAALOX/LIDOCAINE VISCOUS)(1:3:1) PO ONE (16:00)
[2021-06-12] MEDS: SIMVASTATIN 10 MG TAB PO SCH (22:36)
[2021-06-12] MEDS: LETROZOLE 2.5 MG TAB PO SCH (22:36)
[2021-06-12] MEDS: FAMOTIDINE 20 MG TAB PO SCH (22:37)
[2021-06-13 04:12] VITALS: O2SAT 92
[2021-06-13 06:00] VITALS: BP 96/54
[2021-06-13 06:04] LABS: BASO # 0.1 10^3/uL (0.0-0.2); BASO % 0.6 % (0.0-1.0); EOS # 0.8 10^3/uL (0.0-0.5); HEMATOCRIT 34.1 % (36.0-47.0); HEMOGLOBIN 11.4 g/dl (12.0-15.5); LYMPH # 2.4 10^3/uL (1.5-5.0); LYMPH % 22.2 % (24.0-44.0); MEAN CORPUSCULAR HEMOGLOBIN 30.6 pg (27.0-33.0); MEAN CORPUSCULAR HGB CONC 33.4 g/dl (32.0-36.5); MEAN CORPUSCULAR VOLUME 91.7 fl (80.0-96.0); MONO # 1.3 10^3/uL (0.0-0.8); MONO % 11.6 % (2.0-8.0); NEUTROPHILS # 6.3 10^3/uL (1.5-8.5); NEUTROPHILS % 57.7 % (36.0-66.0); PLATELET COUNT, AUTOMATED 342 10^3/uL (150-450); RED BLOOD COUNT 3.72 10^6/uL (4.00-5.40)
[2021-06-13 06:27] LABS: BLOOD UREA NITROGEN 23 MG/DL (7-18); CALCIUM LEVEL 8.5 MG/DL (8.8-10.2); CARBON DIOXIDE LEVEL 27 MEQ/L (21-32); CHLORIDE LEVEL 107 MEQ/L (98-107); CREATININE FOR GFR 0.91 MG/DL (0.55-1.30); GLOMERULAR FILTRATION RATE > 60.0 (>32); GLUCOSE, FASTING 119 MG/DL (70-100); POTASSIUM SERUM 4.1 MEQ/L (3.5-5.1); SODIUM LEVEL 140 MEQ/L (136-145)
[2021-06-13] MEDS: LEVOTHYROXINE 25MCG TABLET (0.025MG) PO SCH (07:37)
[2021-06-13] MEDS: MIRALAX *UNIT DOSE* 17GM PACKET PO SCH (09:00)
[2021-06-13] MEDS: SENOKOT S TAB PO SCH ×2 (09:00→21:05)
[2021-06-13] MEDS: MYCOLOG CREAM 15 GM (NYSTATIN/TRIAMCINOLONE) TOP SCH ×2 (09:14→21:06)
[2021-06-13] MEDS: ASPIRIN 81MG ENTERIC TABLET PO SCH ×2 (09:14→21:05)
[2021-06-13] MEDS: FAMOTIDINE 20 MG TAB PO SCH ×2 (09:14→21:05)
[2021-06-13] MEDS: PARoxetine 20MG TABLET PO SCH (09:14)
[2021-06-13 14:00] VITALS: BP 84/52
[2021-06-13] MEDS: DIGOXIN 0.25 MG TAB PO SCH (17:21)
[2021-06-13 18:30] VITALS: BP 99/58
[2021-06-13] MEDS: LETROZOLE 2.5 MG TAB PO SCH (21:05)
[2021-06-13] MEDS: SIMVASTATIN 10 MG TAB PO SCH (21:05)
[2021-06-13 22:00] VITALS: BP 100/55
[2021-06-14] MEDS: LEVOTHYROXINE 25MCG TABLET (0.025MG) PO SCH (05:41)
[2021-06-14 05:55] LABS: BASO # 0.1 10^3/uL (0.0-0.2); BASO % 0.8 % (0.0-1.0); EOS # 0.9 10^3/uL (0.0-0.5); EOS % 7.6 % (0.0-3.0); HEMATOCRIT 38.6 % (36.0-47.0); HEMOGLOBIN 12.8 g/dl (12.0-15.5); LYMPH # 2.8 10^3/uL (1.5-5.0); MEAN CORPUSCULAR HEMOGLOBIN 30.8 pg (27.0-33.0); MEAN CORPUSCULAR HGB CONC 33.2 g/dl (32.0-36.5); MONO # 1.3 10^3/uL (0.0-0.8); MONO % 11.8 % (2.0-8.0); NEUTROPHILS # 6.1 10^3/uL (1.5-8.5); NEUTROPHILS % 54.2 % (36.0-66.0); PLATELET COUNT, AUTOMATED 322 10^3/uL (150-450); RED BLOOD COUNT 4.15 10^6/uL (4.00-5.40); WHITE BLOOD COUNT 11.2 10^3/uL (4.0-10.0)
[2021-06-14 06:00] VITALS: BP 108/63
[2021-06-14 06:16] LABS: BLOOD UREA NITROGEN 19 MG/DL (7-18); CALCIUM LEVEL 8.8 MG/DL (8.8-10.2); CARBON DIOXIDE LEVEL 26 MEQ/L (21-32); CHLORIDE LEVEL 107 MEQ/L (98-107); CREATININE FOR GFR 0.83 MG/DL (0.55-1.30); GLOMERULAR FILTRATION RATE > 60.0 (>32); GLUCOSE, FASTING 100 MG/DL (70-100); POTASSIUM SERUM 4.5 MEQ/L (3.5-5.1); SODIUM LEVEL 139 MEQ/L (136-145)
[2021-06-14] MEDS: DIGOXIN 0.25 MG TAB PO SCH (09:00)
[2021-06-14] MEDS: SENOKOT S TAB PO SCH ×2 (09:00→20:43)
[2021-06-14] MEDS: MIRALAX *UNIT DOSE* 17GM PACKET PO SCH (09:00)
[2021-06-14] MEDS: PARoxetine 20MG TABLET PO SCH (09:58)
[2021-06-14] MEDS: ASPIRIN 81MG ENTERIC TABLET PO SCH ×2 (09:58→20:43)
[2021-06-14] MEDS: FAMOTIDINE 20 MG TAB PO SCH ×2 (09:58→20:43)
[2021-06-14] MEDS: MYCOLOG CREAM 15 GM (NYSTATIN/TRIAMCINOLONE) TOP SCH ×2 (10:02→20:44)
[2021-06-14 14:00] VITALS: BP 114/64
[2021-06-14] MEDS: ENOXAPARIN 40MG/0.4ML SYRINGE (J1650 PER 10MG) SC SCH (17:48)
[2021-06-14 19:16] VITALS: BP 102/59
[2021-06-14] MEDS: SIMVASTATIN 10 MG TAB PO SCH (20:43)
[2021-06-14] MEDS: LETROZOLE 2.5 MG TAB PO SCH (20:44)
[2021-06-14 22:00] VITALS: BP 100/56
[2021-06-15 04:23] VITALS: BP 107/62
[2021-06-15] MEDS: ENOXAPARIN 40MG/0.4ML SYRINGE (J1650 PER 10MG) SC SCH (05:46)
[2021-06-15] MEDS: LEVOTHYROXINE 25MCG TABLET (0.025MG) PO SCH (05:46)
[2021-06-15 06:10] LABS: HEMATOCRIT 34.2 % (36.0-47.0); MEAN CORPUSCULAR HEMOGLOBIN 29.7 pg (27.0-33.0); MEAN CORPUSCULAR HGB CONC 32.2 g/dl (32.0-36.5); MEAN CORPUSCULAR VOLUME 92.4 fl (80.0-96.0); PLATELET COUNT, AUTOMATED 329 10^3/uL (150-450)
[2021-06-15 06:33] LABS: BLOOD UREA NITROGEN 20 MG/DL (7-18); CALCIUM LEVEL 8.4 MG/DL (8.8-10.2); CARBON DIOXIDE LEVEL 27 MEQ/L (21-32); CHLORIDE LEVEL 107 MEQ/L (98-107); CREATININE FOR GFR 0.85 MG/DL (0.55-1.30); GLOMERULAR FILTRATION RATE > 60.0 (>32); GLUCOSE, FASTING 97 MG/DL (70-100); MAGNESIUM LEVEL 2.4 MG/DL (1.8-2.4); POTASSIUM SERUM 4.4 MEQ/L (3.5-5.1); SODIUM LEVEL 139 MEQ/L (136-145)
[2021-06-15] MEDS: FAMOTIDINE 20 MG TAB PO SCH ×2 (10:20→21:30)
[2021-06-15] MEDS: SENOKOT S TAB PO SCH ×2 (10:20→21:30)
[2021-06-15] MEDS: PARoxetine 20MG TABLET PO SCH (10:20)
[2021-06-15] MEDS: ASPIRIN 81MG ENTERIC TABLET PO SCH (10:20)
[2021-06-15] MEDS: MYCOLOG CREAM 15 GM (NYSTATIN/TRIAMCINOLONE) TOP SCH ×2 (10:21→21:30)
[2021-06-15] MEDS: DIGOXIN 0.25 MG TAB PO SCH (10:21)
[2021-06-15] MEDS: MIRALAX *UNIT DOSE* 17GM PACKET PO SCH (10:32)
[2021-06-15] MEDS ORDERED: ISOVUE-370 76% 100ML VIAL As Ordered ONE (12:20)
[2021-06-15] MEDS ORDERED: ENOXAPARIN 40MG/0.4ML SYRINGE (J1650 PER 10MG) SC ONE (13:30)
[2021-06-15 14:00] VITALS: BP 122/80
[2021-06-15] MEDS ORDERED: HEPARIN SOD (PORCINE) 5000UNITS/ML 1ML VIAL/SYRINGE IV PRN (14:10)
[2021-06-15] MEDS: HEPARIN DRIP 25,000 UNITS in IV 1 EA IV SCH (15:45)
[2021-06-15 18:00] VITALS: BP 118/60
[2021-06-15] MEDS ORDERED: ENOXAPARIN 100MG/1ML SYRINGE (J1650 PER 10MG) SC SCH (21:00)
[2021-06-15] MEDS: SIMVASTATIN 10 MG TAB PO SCH (21:30)
[2021-06-15] MEDS: LETROZOLE 2.5 MG TAB PO SCH (21:30)
[2021-06-16 04:15] LABS: HEMATOCRIT 34.5 % (36.0-47.0); HEMOGLOBIN 11.2 g/dl (12.0-15.5); MEAN CORPUSCULAR HEMOGLOBIN 30.4 pg (27.0-33.0); MEAN CORPUSCULAR HGB CONC 32.5 g/dl (32.0-36.5); MEAN CORPUSCULAR VOLUME 93.8 fl (80.0-96.0); PLATELET COUNT, AUTOMATED 355 10^3/uL (150-450); RED BLOOD COUNT 3.68 10^6/uL (4.00-5.40); WHITE BLOOD COUNT 10.3 10^3/uL (4.0-10.0)
[2021-06-16 04:44] LABS: BLOOD UREA NITROGEN 17 MG/DL (7-18); CALCIUM LEVEL 8.5 MG/DL (8.8-10.2); CARBON DIOXIDE LEVEL 26 MEQ/L (21-32); CHLORIDE LEVEL 110 MEQ/L (98-107); CREATININE FOR GFR 0.86 MG/DL (0.55-1.30); GLOMERULAR FILTRATION RATE > 60.0 (>32); GLUCOSE, FASTING 93 MG/DL (70-100); MAGNESIUM LEVEL 2.4 MG/DL (1.8-2.4); POTASSIUM SERUM 4.7 MEQ/L (3.5-5.1); SODIUM LEVEL 141 MEQ/L (136-145)
[2021-06-16] MEDS: LEVOTHYROXINE 25MCG TABLET (0.025MG) PO SCH (05:51)
[2021-06-16 05:55] VITALS: BP 116/73
[2021-06-16] MEDS: MIRALAX *UNIT DOSE* 17GM PACKET PO SCH (09:00)
[2021-06-16] MEDS: DIGOXIN 0.25 MG TAB PO SCH (10:21)
[2021-06-16] MEDS: SENOKOT S TAB PO SCH ×3 (10:22→21:52)
[2021-06-16] MEDS: PARoxetine 20MG TABLET PO SCH (10:22)
[2021-06-16] MEDS: FAMOTIDINE 20 MG TAB PO SCH ×2 (10:22→21:52)
[2021-06-16] MEDS: MYCOLOG CREAM 15 GM (NYSTATIN/TRIAMCINOLONE) TOP SCH ×2 (11:53→21:52)
[2021-06-16] MEDS: HEPARIN DRIP 25,000 UNITS in IV 1 EA IV SCH (11:56)
[2021-06-16 14:00] VITALS: BP 99/58
[2021-06-16 19:21] VITALS: BP 99/57
[2021-06-16] MEDS: LETROZOLE 2.5 MG TAB PO SCH (21:52)
[2021-06-16] MEDS: SIMVASTATIN 10 MG TAB PO SCH (21:52)
[2021-06-17 05:16] VITALS: BP 115/56
[2021-06-17] MEDS: LEVOTHYROXINE 25MCG TABLET (0.025MG) PO SCH (06:05)
[2021-06-17 07:09] LABS: HEMATOCRIT 32.7 % (36.0-47.0); HEMOGLOBIN 10.6 g/dl (12.0-15.5); MEAN CORPUSCULAR HEMOGLOBIN 30.6 pg (27.0-33.0); MEAN CORPUSCULAR HGB CONC 32.4 g/dl (32.0-36.5); MEAN CORPUSCULAR VOLUME 94.5 fl (80.0-96.0); PLATELET COUNT, AUTOMATED 373 10^3/uL (150-450); RED BLOOD COUNT 3.46 10^6/uL (4.00-5.40); WHITE BLOOD COUNT 9.7 10^3/uL (4.0-10.0)
[2021-06-17 07:20] LABS: BLOOD UREA NITROGEN 13 MG/DL (7-18); CALCIUM LEVEL 8.3 MG/DL (8.8-10.2); CARBON DIOXIDE LEVEL 24 MEQ/L (21-32); CHLORIDE LEVEL 111 MEQ/L (98-107); CREATININE FOR GFR 0.65 MG/DL (0.55-1.30); GLOMERULAR FILTRATION RATE > 60.0 (>32); GLUCOSE, FASTING 79 MG/DL (70-100); MAGNESIUM LEVEL 2.5 MG/DL (1.8-2.4); POTASSIUM SERUM 4.7 MEQ/L (3.5-5.1); SODIUM LEVEL 141 MEQ/L (136-145)
[2021-06-17 08:21] LABS: DIGOXIN LEVEL 0.9 NG/ML (0.5-2.0)
[2021-06-17] MEDS: SENOKOT S TAB PO SCH ×2 (09:00→21:00)
[2021-06-17] MEDS: MIRALAX *UNIT DOSE* 17GM PACKET PO SCH (09:00)
[2021-06-17] MEDS: HEPARIN DRIP 25,000 UNITS in IV 1 EA IV SCH (09:51)
[2021-06-17] MEDS: FAMOTIDINE 20 MG TAB PO SCH ×2 (09:52→21:10)
[2021-06-17] MEDS: PARoxetine 20MG TABLET PO SCH (09:53)
[2021-06-17] MEDS: DIGOXIN 0.25 MG TAB PO SCH (09:53)
[2021-06-17] MEDS: MYCOLOG CREAM 15 GM (NYSTATIN/TRIAMCINOLONE) TOP SCH ×2 (09:54→21:10)
[2021-06-17 14:00] VITALS: BP 109/56
[2021-06-17 18:00] VITALS: BP 116/57
[2021-06-17] MEDS: LETROZOLE 2.5 MG TAB PO SCH (21:10)
[2021-06-17] MEDS: SIMVASTATIN 10 MG TAB PO SCH (21:10)
[2021-06-18 05:15] VITALS: BP 114/63
[2021-06-18] MEDS: LEVOTHYROXINE 25MCG TABLET (0.025MG) PO SCH (05:48)
[2021-06-18] MEDS: HEPARIN DRIP 25,000 UNITS in IV 1 EA IV SCH (05:51)
[2021-06-18 06:48] LABS: HEMATOCRIT 32.2 % (36.0-47.0); HEMOGLOBIN 10.4 g/dl (12.0-15.5); MEAN CORPUSCULAR HEMOGLOBIN 30.6 pg (27.0-33.0); MEAN CORPUSCULAR HGB CONC 32.3 g/dl (32.0-36.5); MEAN CORPUSCULAR VOLUME 94.7 fl (80.0-96.0); WHITE BLOOD COUNT 8.9 10^3/uL (4.0-10.0)
[2021-06-18 06:57] LABS: BLOOD UREA NITROGEN 13 MG/DL (7-18); CALCIUM LEVEL 8.3 MG/DL (8.8-10.2); CARBON DIOXIDE LEVEL 29 MEQ/L (21-32); CHLORIDE LEVEL 108 MEQ/L (98-107); CREATININE FOR GFR 0.86 MG/DL (0.55-1.30); GLOMERULAR FILTRATION RATE > 60.0 (>32); GLUCOSE, FASTING 92 MG/DL (70-100); MAGNESIUM LEVEL 2.5 MG/DL (1.8-2.4); POTASSIUM SERUM 4.7 MEQ/L (3.5-5.1); SODIUM LEVEL 140 MEQ/L (136-145)
[2021-06-18 07:21] LABS: PLATELET COUNT, AUTOMATED 200 10^3/uL (150-450)
[2021-06-18] MEDS: MIRALAX *UNIT DOSE* 17GM PACKET PO SCH (09:00)
[2021-06-18] MEDS: DIGOXIN 0.25 MG TAB PO SCH (09:00)
[2021-06-18] MEDS: SENOKOT S TAB PO SCH ×2 (09:00→21:07)
[2021-06-18] MEDS: PARoxetine 20MG TABLET PO SCH (09:42)
[2021-06-18] MEDS: FAMOTIDINE 20 MG TAB PO SCH ×2 (09:42→21:07)
[2021-06-18] MEDS: MYCOLOG CREAM 15 GM (NYSTATIN/TRIAMCINOLONE) TOP SCH ×2 (09:43→21:08)
[2021-06-18 11:29] LABS: ALBUMIN 2.4 GM/DL (3.2-5.2); ALT/SGPT 20 U/L (12-78); BILIRUBIN,DIRECT 0.2 MG/DL (0.0-0.2); BILIRUBIN,TOTAL 0.5 MG/DL (0.2-1.0); TOTAL PROTEIN 5.1 GM/DL (6.4-8.2)
[2021-06-18 14:00] VITALS: BP 98/52
[2021-06-18 20:09] VITALS: BP 100/56
[2021-06-18] MEDS: SIMVASTATIN 10 MG TAB PO SCH (21:07)
[2021-06-18] MEDS: LETROZOLE 2.5 MG TAB PO SCH (21:08)
[2021-06-18] MEDS: APIXABAN 5 MG TAB (ELIQUIS) PO SCH (21:08)
[2021-06-18 23:06] VITALS: BP 116/60
[2021-06-19 04:43] VITALS: BP 119/65
[2021-06-19] MEDS: LEVOTHYROXINE 25MCG TABLET (0.025MG) PO SCH (05:53)
[2021-06-19 06:36] LABS: HEMOGLOBIN 11.3 g/dl (12.0-15.5); MEAN CORPUSCULAR HEMOGLOBIN 30.9 pg (27.0-33.0); MEAN CORPUSCULAR HGB CONC 32.3 g/dl (32.0-36.5); MEAN CORPUSCULAR VOLUME 95.6 fl (80.0-96.0); RED BLOOD COUNT 3.66 10^6/uL (4.00-5.40); WHITE BLOOD COUNT 9.4 10^3/uL (4.0-10.0)
[2021-06-19 06:47] LABS: PLATELET COUNT, AUTOMATED 423 10^3/uL (150-450)
[2021-06-19 06:58] LABS: CALCIUM LEVEL 8.4 MG/DL (8.8-10.2); CREATININE FOR GFR 1.05 MG/DL (0.55-1.30); GLOMERULAR FILTRATION RATE 53.2 (>32); MAGNESIUM LEVEL 2.7 MG/DL (1.8-2.4); POTASSIUM SERUM 4.7 MEQ/L (3.5-5.1)
[2021-06-19] MEDS: DIGOXIN 0.25 MG TAB PO SCH (09:00)
[2021-06-19] MEDS: MIRALAX *UNIT DOSE* 17GM PACKET PO SCH (09:00)
[2021-06-19] MEDS: SENOKOT S TAB PO SCH ×3 (09:00→19:56)
[2021-06-19] MEDS: FAMOTIDINE 20 MG TAB PO SCH ×2 (09:58→20:10)
[2021-06-19] MEDS: APIXABAN 5 MG TAB (ELIQUIS) PO SCH ×2 (09:58→20:10)
[2021-06-19] MEDS: PARoxetine 20MG TABLET PO SCH (09:58)
[2021-06-19] MEDS: MYCOLOG CREAM 15 GM (NYSTATIN/TRIAMCINOLONE) TOP SCH ×2 (09:59→20:10)
[2021-06-19 14:00] VITALS: BP 113/62
[2021-06-19 18:00] VITALS: BP 117/64
[2021-06-19] MEDS: LETROZOLE 2.5 MG TAB PO SCH (20:10)
[2021-06-19] MEDS: SIMVASTATIN 10 MG TAB PO SCH (20:10)
[2021-06-19 20:22] VITALS: BP 120/60
[2021-06-20] MEDS: LEVOTHYROXINE 25MCG TABLET (0.025MG) PO SCH (05:31)
[2021-06-20 06:00] VITALS: BP 111/64
[2021-06-20 06:31] LABS: HEMATOCRIT 32.8 % (36.0-47.0); HEMOGLOBIN 10.5 g/dl (12.0-15.5); MEAN CORPUSCULAR HEMOGLOBIN 30.6 pg (27.0-33.0); MEAN CORPUSCULAR VOLUME 95.6 fl (80.0-96.0); PLATELET COUNT, AUTOMATED 415 10^3/uL (150-450); RED BLOOD COUNT 3.43 10^6/uL (4.00-5.40); WHITE BLOOD COUNT 8.3 10^3/uL (4.0-10.0)
[2021-06-20 06:52] LABS: BLOOD UREA NITROGEN 13 MG/DL (7-18); CALCIUM LEVEL 8.6 MG/DL (8.8-10.2); CARBON DIOXIDE LEVEL 27 MEQ/L (21-32); CHLORIDE LEVEL 110 MEQ/L (98-107); CREATININE FOR GFR 0.76 MG/DL (0.55-1.30); GLOMERULAR FILTRATION RATE > 60.0 (>32); GLUCOSE, FASTING 89 MG/DL (70-100); MAGNESIUM LEVEL 2.6 MG/DL (1.8-2.4); POTASSIUM SERUM 4.6 MEQ/L (3.5-5.1); SODIUM LEVEL 142 MEQ/L (136-145)
[2021-06-20] MEDS: SENOKOT S TAB PO SCH ×3 (09:00→21:32)
[2021-06-20] MEDS: DIGOXIN 0.25 MG TAB PO SCH (09:00)
[2021-06-20] MEDS: MIRALAX *UNIT DOSE* 17GM PACKET PO SCH (09:00)
[2021-06-20] MEDS: PARoxetine 20MG TABLET PO SCH (10:00)
[2021-06-20] MEDS: FAMOTIDINE 20 MG TAB PO SCH ×2 (10:01→21:32)
[2021-06-20] MEDS: APIXABAN 5 MG TAB (ELIQUIS) PO SCH ×2 (10:02→21:33)
[2021-06-20] MEDS: MYCOLOG CREAM 15 GM (NYSTATIN/TRIAMCINOLONE) TOP SCH ×2 (10:02→21:33)
[2021-06-20 14:00] VITALS: BP 119/59
[2021-06-20 18:00] VITALS: BP 119/60
[2021-06-20] MEDS: SIMVASTATIN 10 MG TAB PO SCH (21:32)
[2021-06-20] MEDS: LETROZOLE 2.5 MG TAB PO SCH (21:33)
[2021-06-20 22:00] VITALS: BP 116/60
[2021-06-21 05:19] LABS: HEMATOCRIT 32.6 % (36.0-47.0); HEMOGLOBIN 10.4 g/dl (12.0-15.5); MEAN CORPUSCULAR HEMOGLOBIN 30.1 pg (27.0-33.0); MEAN CORPUSCULAR HGB CONC 31.9 g/dl (32.0-36.5); MEAN CORPUSCULAR VOLUME 94.2 fl (80.0-96.0); PLATELET COUNT, AUTOMATED 422 10^3/uL (150-450); RED BLOOD COUNT 3.46 10^6/uL (4.00-5.40); WHITE BLOOD COUNT 9.3 10^3/uL (4.0-10.0)
[2021-06-21 05:47] LABS: BLOOD UREA NITROGEN 13 MG/DL (7-18); CALCIUM LEVEL 8.2 MG/DL (8.8-10.2); CARBON DIOXIDE LEVEL 29 MEQ/L (21-32); CHLORIDE LEVEL 111 MEQ/L (98-107); CREATININE FOR GFR 0.86 MG/DL (0.55-1.30); GLOMERULAR FILTRATION RATE > 60.0 (>32); GLUCOSE, FASTING 98 MG/DL (70-100); MAGNESIUM LEVEL 2.4 MG/DL (1.8-2.4); POTASSIUM SERUM 4.2 MEQ/L (3.5-5.1); SODIUM LEVEL 141 MEQ/L (136-145)
[2021-06-21] MEDS: LEVOTHYROXINE 25MCG TABLET (0.025MG) PO SCH (05:57)
[2021-06-21 06:00] VITALS: BP 103/79
[2021-06-21] MEDS: MIRALAX *UNIT DOSE* 17GM PACKET PO SCH (09:00)
[2021-06-21] MEDS: DIGOXIN 0.25 MG TAB PO SCH (09:00)
[2021-06-21] MEDS: SENOKOT S TAB PO SCH ×2 (09:00→20:07)
[2021-06-21] MEDS: PARoxetine 20MG TABLET PO SCH (09:50)
[2021-06-21] MEDS: FAMOTIDINE 20 MG TAB PO SCH ×2 (09:50→20:07)
[2021-06-21] MEDS: APIXABAN 5 MG TAB (ELIQUIS) PO SCH ×2 (09:50→20:07)
[2021-06-21] MEDS: MYCOLOG CREAM 15 GM (NYSTATIN/TRIAMCINOLONE) TOP SCH ×2 (09:51→20:08)
[2021-06-21] MEDS ORDERED: ELIQ5TAB PO (13:44)
[2021-06-21 14:00] VITALS: BP 111/59
[2021-06-21] MEDS: SIMVASTATIN 10 MG TAB PO SCH (20:07)
[2021-06-21] MEDS: LETROZOLE 2.5 MG TAB PO SCH (20:08)
[2021-06-21 22:00] VITALS: BP 110/66
[2021-06-22] MEDS: LEVOTHYROXINE 25MCG TABLET (0.025MG) PO SCH (05:51)
[2021-06-22 06:00] VITALS: BP 113/65
[2021-06-22] MEDS: MIRALAX *UNIT DOSE* 17GM PACKET PO SCH (08:46)
[2021-06-22] MEDS: FAMOTIDINE 20 MG TAB PO SCH (08:48)
[2021-06-22] MEDS: MYCOLOG CREAM 15 GM (NYSTATIN/TRIAMCINOLONE) TOP SCH (08:48)
[2021-06-22] MEDS: APIXABAN 5 MG TAB (ELIQUIS) PO SCH (08:48)
[2021-06-22] MEDS: PARoxetine 20MG TABLET PO SCH (08:48)
[2021-06-22] MEDS: SENOKOT S TAB PO SCH (08:48)
[2021-06-22] MEDS: DIGOXIN 0.25 MG TAB PO SCH (08:49)
[2021-06-22] MEDS ORDERED: MYCO15CR TOP (10:27)
[2021-06-22 10:57] LABS: DIGOXIN LEVEL 0.3 NG/ML (0.5-2.0)
[2021-06-22] MEDS ORDERED: CLOT1CRE71 TOP (12:21)
[2021-06-22] MEDS ORDERED: APIXABAN 5 MG TAB (ELIQUIS) PO SCH (21:00)
== END 2021-06-22 15:45 | disposition home health service (06) | DRG 521 ==
LOC: M ED 11:51 → M ED INP 16:04 → ENRESERV 16:26 → M MSPAV 17:55
PROVIDERS: ADMIT Internal Medicine Nephrology; ATTEND Internal Medicine Nephrology
PROC: 0SRS0J9 Replacement of Left Hip Joint, Femoral Surface with Synthetic Substitute, Cemented, Open Approach (ICD-10-PCS; principal; 2021-06-08 10:30)
DX: S72.012A Unspecified intracapsular fracture of left femur, initial encounter for closed fracture (principal); I26.99 Other pulmonary embolism without acute cor pulmonale; J98.11 Atelectasis; E03.9 Hypothyroidism, unspecified; I10 Essential (primary) hypertension; K21.9 Gastro-esophageal reflux disease without esophagitis; E78.5 Hyperlipidemia, unspecified; I48.0 Paroxysmal atrial fibrillation; R29.6 Repeated falls; R09.02 Hypoxemia; Z85.3 Personal history of malignant neoplasm of breast; L23.1 Allergic contact dermatitis due to adhesives; Z79.82 Long term (current) use of aspirin; Z79.899 Other long term (current) drug therapy; Z91.040 Latex allergy status; Z88.5 Allergy status to narcotic agent; Z88.8 Allergy status to other drugs, medicaments and biological substances; Z96.641 Presence of right artificial hip joint; Z96.652 Presence of left artificial knee joint; Z85.828 Personal history of other malignant neoplasm of skin; Z98.41 Cataract extraction status, right eye; Z98.42 Cataract extraction status, left eye; W18.30XA Fall on same level, unspecified, initial encounter; Y92.009 Unspecified place in unspecified non-institutional (private) residence as the place of occurrence of the external cause

== ENCOUNTER → 2021-07-13 | Outpatient (REF) | payer MEDICARE ==
[~2021-07-13] MED LIST changes: +CLOT1CRE71 TOP; +ELIQ5TAB PO; +MYCO15CR TOP; +PARO40TA3 PO
[2021-07-13 16:49] LABS: HEMOGLOBIN A1c 5.1 %
[2021-07-13 17:07] LABS: ALBUMIN 3.8 GM/DL (3.2-5.2); BILIRUBIN,TOTAL 0.8 MG/DL (0.2-1.0); CALCIUM LEVEL 9.4 MG/DL (8.8-10.2); CHOLESTEROL RISK RATIO 2.455 (<5); CREATININE FOR GFR 0.95 MG/DL (0.55-1.30); GLOMERULAR FILTRATION RATE 59.7 (>32); POTASSIUM SERUM 3.8 MEQ/L (3.5-5.1); THYROID STIMULATING HORMONE 3.2 uIU/ML (0.358-3.740); TOTAL 25(OH) VITAMIN D 9.9 NG/ML (30.0-100.0); TOTAL PROTEIN 7.5 GM/DL (6.4-8.2)
[2021-07-13 17:15] LABS: BASO # 0.1 10^3/uL (0.0-0.2); BASO % 0.8 % (0.0-1.0); EOS # 0.3 10^3/uL (0.0-0.5); EOS % 3.3 % (0.0-3.0); HEMATOCRIT 42.8 % (36.0-47.0); HEMOGLOBIN 13.7 g/dl (12.0-15.5); LYMPH # 1.2 10^3/uL (1.5-5.0); LYMPH % 15.4 % (24.0-44.0); MEAN CORPUSCULAR HEMOGLOBIN 30.2 pg (27.0-33.0); MEAN CORPUSCULAR VOLUME 94.3 fl (80.0-96.0); MONO # 0.8 10^3/uL (0.0-0.8); MONO % 10.2 % (2.0-8.0); NEUTROPHILS # 5.3 10^3/uL (1.5-8.5); PLATELET COUNT, AUTOMATED 407 10^3/uL (150-450); RED BLOOD COUNT 4.54 10^6/uL (4.00-5.40); WHITE BLOOD COUNT 7.6 10^3/uL (4.0-10.0)
== END ==
LOC: M SFHCCAPE 10:51
PROVIDERS: ATTEND Physician Assistant
DX: E78.2 Mixed hyperlipidemia (principal); I10 Essential (primary) hypertension; E11.9 Type 2 diabetes mellitus without complications; E03.9 Hypothyroidism, unspecified; Z79.899 Other long term (current) drug therapy

== ENCOUNTER → 2021-07-14 | Outpatient (REF) | payer MEDICARE ==
[~2021-07-14] MED LIST changes: +AMOX875T2 PO
[2021-07-14 16:28] LABS: APPEARANCE, URINE HAZY (CLEAR); BACTERIA, URINE AUTO NEGATIVE (NEGATIVE); BILIRUBIN, URINE AUTO NEGATIVE (NEGATIVE); BLOOD, URINE BLOOD 1+ (NEGATIVE); CALCIUM OXALATE CRYSTALS MODERATE; COLOR, URINE YELLOW (YELLOW); GLUCOSE, URINE (UA) AUTO NEGATIVE (NEGATIVE); KETONE, URINE AUTO NEGATIVE (NEGATIVE); LEUKOCYTE ESTERASE, URINE AUTO NEGATIVE (NEGATIVE); MUCUS, URINE SMALL (NEGATIVE); NITRITE, URINE AUTO NEGATIVE (NEGATIVE); PROTEIN, URINE AUTO NEGATIVE (NEGATIVE); RBC, URINE AUTO 4 /HPF (0-3); SPECIFIC GRAVITY URINE AUTO 1.018 (1.002-1.035); SQUAMOUS EPITHELIAL CELL UR AU 2 /HPF (0-6); WBC, URINE AUTO 2 /HPF (0-3)
[2021-07-14 16:50] LABS: MALB URINE SIEMENS 20.3 MG/L; MAU/CREAT RATIO 14.2 MCG/MG (0.0-30.0)
== END ==
LOC: M SFHCCAPE 13:43
PROVIDERS: ATTEND Physician Assistant
DX: R41.0 Disorientation, unspecified (principal); E78.2 Mixed hyperlipidemia; I10 Essential (primary) hypertension; E11.9 Type 2 diabetes mellitus without complications; E03.9 Hypothyroidism, unspecified

== ENCOUNTER 2021-07-18 12:09 | Emergency (ER) | payer MEDICARE ==
[~2021-07-18] VITALS: Ht 149.9 cm; Wt 77.3 kg
[~2021-07-18 12:09] MED LIST changes: -AMOX875T2 PO
[2021-07-18 13:43] LABS: BASO # 0.1 10^3/uL (0.0-0.2); BASO % 0.7 % (0.0-1.0); EOS # 0.2 10^3/uL (0.0-0.5); EOS % 2.5 % (0.0-3.0); HEMATOCRIT 42.4 % (36.0-47.0); HEMOGLOBIN 13.2 g/dl (12.0-15.5); LYMPH # 1.4 10^3/uL (1.5-5.0); LYMPH % 14.3 % (24.0-44.0); MEAN CORPUSCULAR HEMOGLOBIN 29.5 pg (27.0-33.0); MEAN CORPUSCULAR HGB CONC 31.1 g/dl (32.0-36.5); MEAN CORPUSCULAR VOLUME 94.6 fl (80.0-96.0); MONO # 1.1 10^3/uL (0.0-0.8); MONO % 11.7 % (2.0-8.0); NEUTROPHILS # 6.7 10^3/uL (1.5-8.5); NEUTROPHILS % 70.4 % (36.0-66.0); PLATELET COUNT, AUTOMATED 398 10^3/uL (150-450); RED BLOOD COUNT 4.48 10^6/uL (4.00-5.40); WHITE BLOOD COUNT 9.5 10^3/uL (4.0-10.0)
[2021-07-18 13:57] LABS: BLOOD UREA NITROGEN 16 MG/DL (7-18); CALCIUM LEVEL 9.7 MG/DL (8.8-10.2); CARBON DIOXIDE LEVEL 30 MEQ/L (21-32); CHLORIDE LEVEL 106 MEQ/L (98-107); CREATININE FOR GFR 0.88 MG/DL (0.55-1.30); GLOMERULAR FILTRATION RATE > 60.0 (>32); GLUCOSE, FASTING 93 MG/DL (70-100); POTASSIUM SERUM 3.6 MEQ/L (3.5-5.1); SODIUM LEVEL 140 MEQ/L (136-145)
[2021-07-18 13:58] LABS: ALBUMIN 3.6 GM/DL (3.2-5.2); ALT/SGPT 14 U/L (12-78); BILIRUBIN,DIRECT 0.3 MG/DL (0.0-0.2); BILIRUBIN,TOTAL 0.9 MG/DL (0.2-1.0); C REACTIVE PROTEIN QUANTITATIV 3.14 MG/DL (0.00-0.30); TOTAL PROTEIN 7.4 GM/DL (6.4-8.2)
[2021-07-18 14:25] LABS: ERYTHROCYTE SEDIMENTATION RATE 29 mm/hr (0-30)
[2021-07-18] MEDS ORDERED: AUGMENTIN 875 MG TAB PO ONE (18:35)
[2021-07-18] MEDS ORDERED: AMPICILLIN SOD/SULBACTAM SOD 3 GM in D5W MINI-BAG PLUS 100 ML IV ONE (18:35)
[2021-07-18] MEDS ORDERED: AMOX875T2 PO (18:53)
[2021-07-18 20:27] VITALS: BP 160/81
== END 2021-07-18 20:29 | disposition home or self-care (01) ==
LOC: M ED 12:09
DX: L03.114 Cellulitis of left upper limb (principal); S61.452A Open bite of left hand, initial encounter; W55.01XA Bitten by cat, initial encounter; Y92.099 Unspecified place in other non-institutional residence as the place of occurrence of the external cause; Y93.89 Activity, other specified; Y99.9 Unspecified external cause status; M11.242 Other chondrocalcinosis, left hand; I10 Essential (primary) hypertension; K21.9 Gastro-esophageal reflux disease without esophagitis; Z85.3 Personal history of malignant neoplasm of breast; M19.042 Primary osteoarthritis, left hand; Z79.82 Long term (current) use of aspirin; Z79.899 Other long term (current) drug therapy; Z91.040 Latex allergy status; Z88.5 Allergy status to narcotic agent; Z88.8 Allergy status to other drugs, medicaments and biological substances
CPT/HCPCS: 73130; 80048; 80076; 83605; 85025; 85652; 86140; 87040; 96365; 99284; J0295

== ENCOUNTER → 2021-08-04 | Outpatient (CLI) | payer MEDICARE ==
[~2021-08-04] MED LIST changes: +AMOX875T2 PO
== END ==
LOC: M SOG 07:55
PROVIDERS: ATTEND Orthopaedic Surgery
DX: Z96.642 Presence of left artificial hip joint (principal)

== ENCOUNTER → 2021-11-04 | Outpatient (CLI) | payer MEDICARE | LOC: M SOG 08:13 | PROVIDERS: ATTEND Orthopaedic Surgery | DX: Z96.642 Presence of left artificial hip joint (principal) ==

== ENCOUNTER → 2021-11-18 | Outpatient (CLI) | payer MEDICARE | LOC: M SOG 08:00 | PROVIDERS: ATTEND Orthopaedic Surgery | DX: M25.512 Pain in left shoulder (principal); M25.511 Pain in right shoulder; M25.361 Other instability, right knee; M25.531 Pain in right wrist; M25.562 Pain in left knee; Z96.652 Presence of left artificial knee joint; M25.761 Osteophyte, right knee; M19.011 Primary osteoarthritis, right shoulder; M25.711 Osteophyte, right shoulder; M25.712 Osteophyte, left shoulder ==

== ENCOUNTER → 2022-03-08 | Outpatient (CLI) | payer MEDICARE | LOC: M WHC 11:41 | PROVIDERS: ATTEND Nurse Practitioner | DX: Z12.31 Encounter for screening mammogram for malignant neoplasm of breast (principal); Z85.3 Personal history of malignant neoplasm of breast; M81.0 Age-related osteoporosis without current pathological fracture; M85.89 Other specified disorders of bone density and structure, multiple sites ==

== ENCOUNTER → 2022-03-14 | Outpatient (REF) | payer MEDICARE ==
[2022-03-14 17:24] LABS: BASO # 0.1 10^3/uL (0.0-0.2); BASO % 1.1 % (0.0-1.0); EOS # 0.2 10^3/uL (0.0-0.5); EOS % 3.3 % (0.0-3.0); HEMATOCRIT 40.7 % (36.0-47.0); LYMPH # 1.2 10^3/uL (1.5-5.0); LYMPH % 16.7 % (24.0-44.0); MEAN CORPUSCULAR HGB CONC 31.9 g/dl (32.0-36.5); MONO # 0.8 10^3/uL (0.0-0.8); MONO % 11.5 % (2.0-8.0); NEUTROPHILS # 4.7 10^3/uL (1.5-8.5); NEUTROPHILS % 67.1 % (36.0-66.0); PLATELET COUNT, AUTOMATED 385 10^3/uL (150-450); RED BLOOD COUNT 4.33 10^6/uL (4.00-5.40); WHITE BLOOD COUNT 7.1 10^3/uL (4.0-10.0)
[2022-03-14 17:48] LABS: CREATININE, URINE 78.4 MG/DL
[2022-03-14 17:50] LABS: MAU/CREAT RATIO 24.2 MCG/MG (0.0-30.0)
[2022-03-14 18:18] LABS: THYROID STIMULATING HORMONE 3.176 uIU/ML (0.55-4.78); TOTAL 25(OH) VITAMIN D 58.1 NG/ML (20.0-100.0)
[2022-03-14 19:46] LABS: ALBUMIN 3.2 G/DL (3.2-5.2); ALKALINE PHOSPHATASE 103 U/L (46-116); ALT/SGPT < 9 U/L (7.0-40); AST/SGOT 15 U/L (<34); BILIRUBIN,TOTAL 0.6 MG/DL (0.3-1.2); BLOOD UREA NITROGEN 19 MG/DL (9-23); CALCIUM LEVEL 9.2 MG/DL (8.3-10.6); CARBON DIOXIDE LEVEL 30 MMOL/L (20-31); CHLORIDE LEVEL 103 MMOL/L (98-107); GLOMERULAR FILTRATION RATE > 60.0 (>32); GLUCOSE, FASTING 92 MG/DL (74-106); POTASSIUM SERUM 3.3 MMOL/L (3.5-5.1); SODIUM LEVEL 141 MMOL/L (136-145); TOTAL PROTEIN 6.2 G/DL (5.7-8.2)
[2022-03-14 20:28] LABS: APPEARANCE, URINE MANUAL HAZY (CLEAR); BILIRUBIN, URINE MANUAL NEGATIVE (NEGATIVE); BLOOD URINE MANUAL POSITIVE (NEGATIVE); COLOR, URINE MANUAL YELLOW (YELLOW); GLUCOSE, URINE (UA) MANUAL NEGATIVE (NEGATIVE); KETONE, URINE MANUAL NEGATIVE (NEGATIVE); LEUKOCYTE ESTERASE, URINE MAN POSITIVE (NEGATIVE); NITRITE, URINE MANUAL NEGATIVE (NEGATIVE); PROTEIN, URINE MANUAL NEGATIVE (NEGATIVE); SPECIFIC GRAVITY,URINE MANUAL 1.015 (1.002-1.035); UROBILINOGEN, URINE MANUAL NORMAL (NORMAL)
[2022-03-14 21:05] LABS: WBC, URINE TNTC /hpf (0-3)
[2022-03-14 21:06] LABS: RBC, URINE 20-30 /hpf (0-3); SQUAMOUS EPITHELIAL CELL URINE MOD AMOUNT /hpf (SMALL AMT)
[2022-03-14 21:07] LABS: BACTERIA, URINE LARGE AMOUNT
[2022-03-14 21:09] LABS: HYALINE CAST, URINE NONE SEEN /lpf (0-1)
== END ==
LOC: M SFHCCAPE 13:59
PROVIDERS: ATTEND Physician Assistant
DX: R30.0 Dysuria (principal); E78.2 Mixed hyperlipidemia; E11.9 Type 2 diabetes mellitus without complications; Z79.899 Other long term (current) drug therapy

== ENCOUNTER → 2022-05-17 | Outpatient (REF) | payer MEDICARE ==
[~2022-05-17] MED LIST changes: +CALC1CAP31 PO
== END ==
LOC: M SFHCCAPE 11:55
PROVIDERS: ATTEND Physician Assistant
DX: R30.0 Dysuria (principal)

== ENCOUNTER → 2022-08-16 | Outpatient (REF) | payer MEDICARE | LOC: M LAB REF 09:52 | PROVIDERS: ATTEND Physician Assistant | DX: N30.01 Acute cystitis with hematuria (principal) ==

== ENCOUNTER → 2022-10-17 | Outpatient (REF) | payer MEDICARE ==
[2022-10-17 18:46] LABS: APPEARANCE, URINE CLOUDY (CLEAR); BACTERIA, URINE AUTO 1+ (NEGATIVE); BILIRUBIN, URINE AUTO NEGATIVE (NEGATIVE); BLOOD, URINE BLOOD 3+ (NEGATIVE); CALCIUM OXALATE CRYSTALS LARGE; COLOR, URINE AMBER (YELLOW); GLUCOSE, URINE (UA) AUTO NEGATIVE (NEGATIVE); KETONE, URINE AUTO NEGATIVE (NEGATIVE); LEUKOCYTE ESTERASE, URINE AUTO 3+ (NEGATIVE); NITRITE, URINE AUTO POSITIVE (NEGATIVE); PROTEIN, URINE AUTO 1+ mg/dL (NEGATIVE); RBC, URINE AUTO TNTC /HPF (0-3); SPECIFIC GRAVITY URINE AUTO 1.016 (1.002-1.035); SQUAMOUS EPITHELIAL CELL UR AU 9 /HPF (0-6); WBC, URINE AUTO TNTC /HPF (0-3)
== END ==
LOC: M SFHCCAPE 11:05
PROVIDERS: ATTEND Physician Assistant
DX: R35.0 Frequency of micturition (principal)

== ENCOUNTER → 2022-11-11 | Outpatient (REF) | payer MEDICARE | LOC: M WUC 10:50 | PROVIDERS: ATTEND Student in an Organized Health Care Education/Training Program | DX: R30.0 Dysuria (principal) ==

== ENCOUNTER 2022-12-08 13:02 | Observation (INO) | payer MEDICARE ==
[~2022-12-08] VITALS: Ht 149.9 cm; Wt 75.1 kg
[2022-12-08 16:03] LABS: BASO # 0.1 10^3/uL (0.0-0.2); BASO % 1.1 % (0.0-1.0); EOS # 0.3 10^3/uL (0.0-0.5); EOS % 3.9 % (0.0-3.0); HEMATOCRIT 41.7 % (36.0-47.0); HEMOGLOBIN 13.6 g/dl (12.0-15.5); LYMPH # 1.4 10^3/uL (1.5-5.0); LYMPH % 17.8 % (24.0-44.0); MEAN CORPUSCULAR HEMOGLOBIN 30.4 pg (27.0-33.0); MEAN CORPUSCULAR HGB CONC 32.6 g/dl (32.0-36.5); MEAN CORPUSCULAR VOLUME 93.1 fl (80.0-96.0); MONO # 1.2 10^3/uL (0.0-0.8); MONO % 14.6 % (2.0-8.0); NEUTROPHILS % 62.4 % (36.0-66.0); PLATELET COUNT, AUTOMATED 403 10^3/uL (150-450); RED BLOOD COUNT 4.48 10^6/uL (4.00-5.40)
[2022-12-08 16:13] LABS: ERYTHROCYTE SEDIMENTATION RATE 35 mm/hr (0-30)
[2022-12-08 16:24] LABS: INR 1.65; PROTHROMBIN TIME 19.1 SECONDS (12.5-14.5)
[2022-12-08 16:25] LABS: PARTIAL THROMBOPLASTIN TIME 26.7 SECONDS (24.8-34.2)
[2022-12-08 16:31] LABS: RSV AMPLIFICATION NEGATIVE (NEGATIVE)
[2022-12-08 16:46] LABS: ALBUMIN 3.5 G/DL (3.2-5.2); ALKALINE PHOSPHATASE 111 U/L (46-116); ALT/SGPT 13 U/L (7.0-40); AST/SGOT 34 U/L (<34); BILIRUBIN,DIRECT 0.2 MG/DL (<0.4); BILIRUBIN,TOTAL 0.5 MG/DL (0.3-1.2); BLOOD UREA NITROGEN 14 MG/DL (9-23); CARBON DIOXIDE LEVEL 30 MMOL/L (20-31); CHLORIDE LEVEL 102 MMOL/L (98-107); CK-MB VALUE MASS 1.3 NG/ML (<3.6); CPK CREATINE PHOSPHOKINASE 152 U/L (34-145); CREATININE FOR GFR 0.87 MG/DL (0.55-1.30); FREE T4 1.05 NG/DL (0.89-1.76); GLOMERULAR FILTRATION RATE > 60.0 (>32); GLUCOSE, FASTING 74 MG/DL (74-106); MB/CK RELATIVE INDEX 0.85 (< OR =4); POTASSIUM SERUM 4.1 MMOL/L (3.5-5.1); SODIUM LEVEL 138 MMOL/L (136-145); THYROID STIMULATING HORMONE 3.753 uIU/ML (0.55-4.78); TOTAL PROTEIN 6.9 G/DL (5.7-8.2)
[2022-12-08] MEDS ORDERED: dilTIAZem 60 MG TAB PO ONE (17:05)
[2022-12-08] MEDS ORDERED: FUROSEMIDE 20MG/2ML VIAL IV ONE (17:10)
[2022-12-08] MEDS ORDERED: NS 1,000 ML IV ONE (19:15)
[2022-12-08] MEDS ORDERED: LEVO50TA5 PO (21:05)
[2022-12-08] MEDS ORDERED: LETR2.5T2 PO (21:05)
[2022-12-08] MEDS ORDERED: CALC1CAP31 PO (21:05)
[2022-12-08] MEDS ORDERED: BUPR150T12 PO (21:05)
[2022-12-08] MEDS ORDERED: ELIQ5TAB PO (21:05)
[2022-12-08] MEDS ORDERED: HOME MED LIST COMPLETE! XX SCH (21:10)
[2022-12-08] MEDS ORDERED: PILL CUTTER 1 EACH XX PRN (21:50)
[2022-12-08] MEDS: APIXABAN 5 MG TAB (ELIQUIS) PO SCH (22:27)
[2022-12-08] MEDS: SIMVASTATIN 10 MG TAB PO SCH (22:27)
[2022-12-09] MEDS: LETROZOLE 2.5 MG TAB PO SCH ×2 (00:14→20:18)
[2022-12-09] MEDS: LEVOTHYROXINE 50MCG TABLET (0.05MG) PO SCH (06:31)
[2022-12-09] MEDS: APIXABAN 5 MG TAB (ELIQUIS) PO SCH ×2 (08:35→20:18)
[2022-12-09] MEDS: PARoxetine 20MG TABLET PO SCH (08:36)
[2022-12-09] MEDS: buPROPion **XL** TABLET 150MG (WELLBUTRIN XL) PO SCH (08:37)
[2022-12-09] MEDS: FAMOTIDINE 20 MG TAB PO SCH (08:37)
[2022-12-09] MEDS: CALCITRIOL 0.25 MCG CAP (S0169) PO SCH (09:26)
[2022-12-09] MEDS ORDERED: dilTIAZem 30 MG TAB PO PRN (10:50)
[2022-12-09] MEDS ORDERED: MIDODRINE 5 MG TAB PO ONE ×2 (10:50→15:55)
[2022-12-09] MEDS ORDERED: MIDO5TA PO (10:50)
[2022-12-09] MEDS ORDERED: SELF1KIT MC (10:53)
[2022-12-09] MEDS ORDERED: CARD40TA PO (10:53)
[2022-12-09] MEDS ORDERED: MIDODRINE 5 MG TAB PO SCH (12:00)
[2022-12-09 15:36] LABS: IONIZED CALCIUM 4.6 MG/DL (4.5-5.3)
[2022-12-09] MEDS ORDERED: METOPROLOL 5 MG/5 ML VIAL IV PRN (15:50)
[2022-12-09] MEDS ORDERED: DIGOXIN INJ 0.5 MG/2 ML AMP IV ONE (15:55)
[2022-12-09 16:04] LABS: CALCIUM LEVEL 8.9 MG/DL (8.3-10.6); CREATININE FOR GFR 0.95 MG/DL (0.55-1.30); GLOMERULAR FILTRATION RATE 59.5 (>32); POTASSIUM SERUM 3.5 MMOL/L (3.5-5.1)
[2022-12-09] MEDS: FUROSEMIDE 20 MG TAB PO SCH (16:31)
[2022-12-09 17:21] VITALS: BP 122/66; TEMP 97.4; O2SAT 93
[2022-12-09] MEDS: dilTIAZem 30 MG TAB PO SCH ×2 (18:32→23:48)
[2022-12-09 19:22] VITALS: BP 128/64; TEMP 97.7; O2SAT 96
[2022-12-09] MEDS: SIMVASTATIN 10 MG TAB PO SCH (20:18)
[2022-12-09 23:00] VITALS: BP 126/69; TEMP 98.1; O2SAT 94
[2022-12-10 03:48] VITALS: BP 121/77; TEMP 98.5; O2SAT 94
[2022-12-10 04:55] LABS: BASO # 0.1 10^3/uL (0.0-0.2); BASO % 1.1 % (0.0-1.0); EOS # 0.4 10^3/uL (0.0-0.5); EOS % 5.2 % (0.0-3.0); HEMOGLOBIN 12.7 g/dl (12.0-15.5); LYMPH % 13.9 % (24.0-44.0); MEAN CORPUSCULAR HEMOGLOBIN 29.8 pg (27.0-33.0); MEAN CORPUSCULAR HGB CONC 31.8 g/dl (32.0-36.5); MEAN CORPUSCULAR VOLUME 93.9 fl (80.0-96.0); MONO % 12.7 % (2.0-8.0); PLATELET COUNT, AUTOMATED 292 10^3/uL (150-450); RED BLOOD COUNT 4.26 10^6/uL (4.00-5.40); WHITE BLOOD COUNT 7.5 10^3/uL (4.0-10.0)
[2022-12-10 05:10] VITALS: BP 122/69
[2022-12-10] MEDS: LEVOTHYROXINE 50MCG TABLET (0.05MG) PO SCH (05:10)
[2022-12-10] MEDS: dilTIAZem 30 MG TAB PO SCH (05:10)
[2022-12-10 05:17] LABS: BLOOD UREA NITROGEN 11 MG/DL (9-23); CALCIUM LEVEL 8.6 MG/DL (8.3-10.6); CARBON DIOXIDE LEVEL 24 MMOL/L (20-31); CHLORIDE LEVEL 105 MMOL/L (98-107); CREATININE FOR GFR 0.88 MG/DL (0.55-1.30); DIGOXIN LEVEL 0.3 NG/ML (0.8-2.0); GLOMERULAR FILTRATION RATE > 60.0 (>32); GLUCOSE, FASTING 91 MG/DL (74-106); MAGNESIUM LEVEL 1.9 MG/DL (1.8-2.4); POTASSIUM SERUM 3.9 MMOL/L (3.5-5.1); SODIUM LEVEL 138 MMOL/L (136-145)
[2022-12-10 08:20] VITALS: BP 116/77; TEMP 97.7; O2SAT 95
[2022-12-10] MEDS: buPROPion **XL** TABLET 150MG (WELLBUTRIN XL) PO SCH (08:31)
[2022-12-10] MEDS: PARoxetine 20MG TABLET PO SCH (08:31)
[2022-12-10] MEDS: FUROSEMIDE 20 MG TAB PO SCH (08:32)
[2022-12-10] MEDS: CALCITRIOL 0.25 MCG CAP (S0169) PO SCH (08:32)
[2022-12-10] MEDS: APIXABAN 5 MG TAB (ELIQUIS) PO SCH (08:32)
[2022-12-10] MEDS: FAMOTIDINE 20 MG TAB PO SCH (08:32)
[2022-12-10] MEDS ORDERED: MIDO5TA PO (19:13)
[2022-12-10] MEDS ORDERED: DILT30TA PO (19:13)
== END 2022-12-10 10:15 | disposition home or self-care (01) ==
LOC: M ED 13:02 → M ED INP 13:03 → ENRESERV 12-09 17:14 → M PCU 12-09 17:21
PROVIDERS: ADMIT Internal Medicine; ATTEND Internal Medicine
DX: I48.0 Paroxysmal atrial fibrillation (principal); E03.9 Hypothyroidism, unspecified; E78.5 Hyperlipidemia, unspecified; I50.30 Unspecified diastolic (congestive) heart failure; I34.0 Nonrheumatic mitral (valve) insufficiency; I36.1 Nonrheumatic tricuspid (valve) insufficiency; M71.21 Synovial cyst of popliteal space [Baker], right knee; R60.0 Localized edema; I27.20 Pulmonary hypertension, unspecified; R82.71 Bacteriuria

== ENCOUNTER 2022-12-10 15:11 | Inpatient (IN) | payer MEDICARE ==
[~2022-12-10] VITALS: Ht 149.9 cm; Wt 70.5 kg
[~2022-12-10 15:11] MED LIST changes: +BUPR150T12 PO; +CARD40TA PO; +LEVO50TA5 PO; +MIDO5TA PO; +SELF1KIT MC
[2022-12-10 16:21] LABS: BASO # 0.1 10^3/uL (0.0-0.2); BASO % 0.9 % (0.0-1.0); EOS # 0.4 10^3/uL (0.0-0.5); EOS % 3.8 % (0.0-3.0); HEMATOCRIT 41.6 % (36.0-47.0); HEMOGLOBIN 13.4 g/dl (12.0-15.5); LYMPH # 1.3 10^3/uL (1.5-5.0); LYMPH % 13.6 % (24.0-44.0); MEAN CORPUSCULAR HEMOGLOBIN 29.6 pg (27.0-33.0); MEAN CORPUSCULAR HGB CONC 32.2 g/dl (32.0-36.5); MONO # 1.3 10^3/uL (0.0-0.8); MONO % 13.4 % (2.0-8.0); NEUTROPHILS # 6.4 10^3/uL (1.5-8.5); NEUTROPHILS % 68.2 % (36.0-66.0); PLATELET COUNT, AUTOMATED 375 10^3/uL (150-450); RED BLOOD COUNT 4.52 10^6/uL (4.00-5.40); WHITE BLOOD COUNT 9.4 10^3/uL (4.0-10.0)
[2022-12-10 16:43] LABS: CK-MB VALUE MASS < 1.0 NG/ML (<3.6); ETHYL ALCOHOL (ETHANOL) < 0.003 % (0.000-0.010)
[2022-12-10 16:46] LABS: CPK CREATINE PHOSPHOKINASE 102 U/L (34-145); MB/CK RELATIVE INDEX 0.98 (< OR =4)
[2022-12-10 16:47] LABS: RSV AMPLIFICATION NEGATIVE (NEGATIVE)
[2022-12-10 16:50] LABS: ALBUMIN 3.2 G/DL (3.2-5.2); ALKALINE PHOSPHATASE 120 U/L (46-116); ALT/SGPT 14 U/L (7.0-40); AST/SGOT 15 U/L (<34); BILIRUBIN,DIRECT 0.3 MG/DL (<0.4); BLOOD UREA NITROGEN 13 MG/DL (9-23); CALCIUM LEVEL 9.1 MG/DL (8.3-10.6); CARBON DIOXIDE LEVEL 31 MMOL/L (20-31); CHLORIDE LEVEL 103 MMOL/L (98-107); CREATININE FOR GFR 0.98 MG/DL (0.55-1.30); GLOMERULAR FILTRATION RATE 57.4 (>32); GLUCOSE, FASTING 86 MG/DL (74-106); SODIUM LEVEL 139 MMOL/L (136-145); TOTAL PROTEIN 6.7 G/DL (5.7-8.2)
[2022-12-10] MEDS ORDERED: cefTRIAXone SOD 1 GM in D5W MINI-BAG PLUS 50 ML IV ONE (17:50)
[2022-12-10] MEDS ORDERED: MIDO5TA PO (19:13)
[2022-12-10] MEDS ORDERED: DILT30TA PO (19:13)
[2022-12-10] MEDS ORDERED: HOME MED LIST COMPLETE! XX SCH (19:15)
[2022-12-10] MEDS ORDERED: dilTIAZem 30 MG TAB PO PRN (19:15)
[2022-12-10 21:45] VITALS: BP 129/74; TEMP 97.3; O2SAT 91
[2022-12-10] MEDS: SIMVASTATIN 10 MG TAB PO SCH (22:24)
[2022-12-10] MEDS: APIXABAN 5 MG TAB (ELIQUIS) PO SCH (22:24)
[2022-12-10] MEDS: LETROZOLE 2.5 MG TAB PO SCH (22:35)
[2022-12-11] MEDS ORDERED: QUEtiapine FUMARATE 12.5 MG HALF-TAB PO ONE (01:00)
[2022-12-11] MEDS: LEVOTHYROXINE 50MCG TABLET (0.05MG) PO SCH (06:29)
[2022-12-11] MEDS: NYSTATIN CREAM 15GM TOP PRN (06:30)
[2022-12-11 06:40] VITALS: BP 127/77; TEMP 98.2; O2SAT 91
[2022-12-11] MEDS: CALCITRIOL 0.25 MCG CAP (S0169) PO SCH (09:29)
[2022-12-11] MEDS: buPROPion **XL** TABLET 150MG (WELLBUTRIN XL) PO SCH (09:29)
[2022-12-11] MEDS: FAMOTIDINE 20 MG TAB PO SCH (09:29)
[2022-12-11] MEDS: APIXABAN 5 MG TAB (ELIQUIS) PO SCH ×2 (09:29→20:31)
[2022-12-11] MEDS: PARoxetine 20MG TABLET PO SCH (09:30)
[2022-12-11] MEDS: dilTIAZem 30 MG TAB PO SCH ×3 (12:07→20:31)
[2022-12-11 14:00] VITALS: BP 122/68; TEMP 98.8; O2SAT 97
[2022-12-11] MEDS ORDERED: ACETAMINOPHEN 500 MG TAB PO ONE (17:00)
[2022-12-11] MEDS: cefTRIAXone SOD 1 GM in D5W MINI-BAG PLUS 50 ML IV SCH (17:37)
[2022-12-11] MEDS: ANALGESIC BALM CRM 3OZ TOP SCH ×2 (17:38→21:00)
[2022-12-11] MEDS: RAMELTEON 8 MG TAB (ROZEREM) PO PRN (20:30)
[2022-12-11] MEDS: SIMVASTATIN 10 MG TAB PO SCH (20:31)
[2022-12-11] MEDS: LETROZOLE 2.5 MG TAB PO SCH (20:31)
[2022-12-11] MEDS: ACETAMINOPHEN TAB 650MG DOSE (2X325MG) PO PRN (20:31)
[2022-12-11 21:30] VITALS: BP 130/98; TEMP 98.8; O2SAT 94
[2022-12-12 06:10] VITALS: BP 137/73; TEMP 97.7; O2SAT 96
[2022-12-12] MEDS: LEVOTHYROXINE 50MCG TABLET (0.05MG) PO SCH (06:19)
[2022-12-12] MEDS: buPROPion **XL** TABLET 150MG (WELLBUTRIN XL) PO SCH (08:44)
[2022-12-12] MEDS: APIXABAN 5 MG TAB (ELIQUIS) PO SCH ×2 (08:44→21:32)
[2022-12-12] MEDS: FAMOTIDINE 20 MG TAB PO SCH (08:44)
[2022-12-12] MEDS: PARoxetine 20MG TABLET PO SCH (08:44)
[2022-12-12] MEDS: CALCITRIOL 0.25 MCG CAP (S0169) PO SCH (08:44)
[2022-12-12] MEDS: dilTIAZem 30 MG TAB PO SCH ×3 (08:44→21:34)
[2022-12-12] MEDS: ANALGESIC BALM CRM 3OZ TOP SCH ×4 (08:45→21:34)
[2022-12-12 14:00] VITALS: BP 125/74; TEMP 97.7; O2SAT 95
[2022-12-12] MEDS: cefTRIAXone SOD 1 GM in D5W MINI-BAG PLUS 50 ML IV SCH (17:46)
[2022-12-12 21:15] VITALS: BP 115/67; TEMP 97.9; O2SAT 96
[2022-12-12] MEDS: RAMELTEON 8 MG TAB (ROZEREM) PO PRN (21:32)
[2022-12-12] MEDS: LETROZOLE 2.5 MG TAB PO SCH (21:32)
[2022-12-12] MEDS: SIMVASTATIN 10 MG TAB PO SCH (21:32)
[2022-12-12] MEDS: ACETAMINOPHEN TAB 650MG DOSE (2X325MG) PO PRN (21:33)
[2022-12-13 05:18] VITALS: BP 115/69; TEMP 97.9; O2SAT 98
[2022-12-13] MEDS: LevoFLOXacin 750 MG TABLET PO SCH (05:34)
[2022-12-13] MEDS: LEVOTHYROXINE 50MCG TABLET (0.05MG) PO SCH (05:34)
[2022-12-13] MEDS ORDERED: LevoFLOXacin 750 MG TABLET PO SCH (06:00)
[2022-12-13] MEDS: dilTIAZem 30 MG TAB PO SCH ×3 (09:28→19:53)
[2022-12-13] MEDS: buPROPion **XL** TABLET 150MG (WELLBUTRIN XL) PO SCH (09:28)
[2022-12-13] MEDS: FAMOTIDINE 20 MG TAB PO SCH (09:28)
[2022-12-13] MEDS: CALCITRIOL 0.25 MCG CAP (S0169) PO SCH (09:28)
[2022-12-13] MEDS: APIXABAN 5 MG TAB (ELIQUIS) PO SCH ×2 (09:28→19:53)
[2022-12-13] MEDS: PARoxetine 20MG TABLET PO SCH (09:28)
[2022-12-13] MEDS: ANALGESIC BALM CRM 3OZ TOP SCH ×4 (09:29→19:54)
[2022-12-13] MEDS: SIMVASTATIN 10 MG TAB PO SCH (19:53)
[2022-12-13] MEDS: LETROZOLE 2.5 MG TAB PO SCH (19:53)
[2022-12-14] MEDS: LEVOTHYROXINE 50MCG TABLET (0.05MG) PO SCH (05:49)
[2022-12-14 06:00] VITALS: BP 123/63; TEMP 98.1; O2SAT 92
[2022-12-14] MEDS: ANALGESIC BALM CRM 3OZ TOP SCH ×4 (09:33→21:45)
[2022-12-14] MEDS: PARoxetine 20MG TABLET PO SCH (09:33)
[2022-12-14] MEDS: CALCITRIOL 0.25 MCG CAP (S0169) PO SCH (09:33)
[2022-12-14] MEDS: APIXABAN 5 MG TAB (ELIQUIS) PO SCH ×2 (09:33→21:27)
[2022-12-14] MEDS: buPROPion **XL** TABLET 150MG (WELLBUTRIN XL) PO SCH (09:33)
[2022-12-14] MEDS: FAMOTIDINE 20 MG TAB PO SCH (09:33)
[2022-12-14] MEDS: dilTIAZem 30 MG TAB PO SCH ×3 (09:33→21:27)
[2022-12-14] MEDS ORDERED: OLANZapine INTRAMUSCULAR 10MG VIAL IM ONE (19:05)
[2022-12-14] MEDS: LETROZOLE 2.5 MG TAB PO SCH (21:27)
[2022-12-14] MEDS: SIMVASTATIN 10 MG TAB PO SCH (21:27)
[2022-12-15] MEDS: LevoFLOXacin 750 MG TABLET PO SCH (05:24)
[2022-12-15] MEDS: LEVOTHYROXINE 50MCG TABLET (0.05MG) PO SCH (05:24)
[2022-12-15 06:00] VITALS: BP 128/83; TEMP 98.1; O2SAT 90
[2022-12-15] MEDS: CALCITRIOL 0.25 MCG CAP (S0169) PO SCH (08:59)
[2022-12-15] MEDS: ANALGESIC BALM CRM 3OZ TOP SCH ×4 (08:59→21:00)
[2022-12-15] MEDS: PARoxetine 20MG TABLET PO SCH (08:59)
[2022-12-15] MEDS: dilTIAZem 30 MG TAB PO SCH ×4 (08:59→21:00)
[2022-12-15] MEDS: APIXABAN 5 MG TAB (ELIQUIS) PO SCH ×2 (08:59→21:00)
[2022-12-15] MEDS: FAMOTIDINE 20 MG TAB PO SCH (08:59)
[2022-12-15] MEDS: buPROPion **XL** TABLET 150MG (WELLBUTRIN XL) PO SCH (08:59)
[2022-12-15] MEDS ORDERED: QUEtiapine FUMARATE 12.5 MG HALF-TAB PO PRN (10:15)
[2022-12-15] MEDS: SIMVASTATIN 10 MG TAB PO SCH (21:00)
[2022-12-15] MEDS: LETROZOLE 2.5 MG TAB PO SCH (21:00)
[2022-12-16] MEDS: LEVOTHYROXINE 50MCG TABLET (0.05MG) PO SCH (05:30)
[2022-12-16 06:25] VITALS: BP 180/110; TEMP 98.1; O2SAT 95
[2022-12-16] MEDS ORDERED: OLANZapine INTRAMUSCULAR 10MG VIAL IM ONE ×2 (06:55→17:00)
[2022-12-16 07:43] VITALS: BP 138/72
[2022-12-16] MEDS: dilTIAZem 30 MG TAB PO SCH ×4 (08:06→21:00)
[2022-12-16] MEDS: APIXABAN 5 MG TAB (ELIQUIS) PO SCH ×3 (08:07→21:00)
[2022-12-16] MEDS: CALCITRIOL 0.25 MCG CAP (S0169) PO SCH (08:07)
[2022-12-16] MEDS: FAMOTIDINE 20 MG TAB PO SCH (08:08)
[2022-12-16] MEDS: buPROPion **XL** TABLET 150MG (WELLBUTRIN XL) PO SCH (08:08)
[2022-12-16] MEDS: PARoxetine 20MG TABLET PO SCH (08:08)
[2022-12-16] MEDS: ANALGESIC BALM CRM 3OZ TOP SCH ×5 (08:09→21:00)
[2022-12-16 13:53] LABS: BASO # 0.1 10^3/uL (0.0-0.2); BASO % 1.1 % (0.0-1.0); EOS # 0.4 10^3/uL (0.0-0.5); EOS % 5.6 % (0.0-3.0); HEMOGLOBIN 13.4 g/dl (12.0-15.5); LYMPH # 1.1 10^3/uL (1.5-5.0); LYMPH % 16.1 % (24.0-44.0); MEAN CORPUSCULAR HEMOGLOBIN 29.6 pg (27.0-33.0); MEAN CORPUSCULAR HGB CONC 31.9 g/dl (32.0-36.5); MEAN CORPUSCULAR VOLUME 92.7 fl (80.0-96.0); MONO # 0.8 10^3/uL (0.0-0.8); MONO % 11.5 % (2.0-8.0); NEUTROPHILS # 4.6 10^3/uL (1.5-8.5); NEUTROPHILS % 65.4 % (36.0-66.0); PLATELET COUNT, AUTOMATED 378 10^3/uL (150-450); RED BLOOD COUNT 4.53 10^6/uL (4.00-5.40)
[2022-12-16] MEDS ORDERED: QUEtiapine FUMARATE 12.5 MG HALF-TAB PO ONE (14:00)
[2022-12-16 15:37] VITALS: BP 105/62; TEMP 98.4; O2SAT 96
[2022-12-16 16:10] LABS: BLOOD UREA NITROGEN 14 MG/DL (9-23); CALCIUM LEVEL 8.7 MG/DL (8.3-10.6); CARBON DIOXIDE LEVEL 24 MMOL/L (20-31); CHLORIDE LEVEL 108 MMOL/L (98-107); CREATININE FOR GFR 0.83 MG/DL (0.55-1.30); GLOMERULAR FILTRATION RATE > 60.0 (>32); GLUCOSE, FASTING 77 MG/DL (74-106); POTASSIUM SERUM 4.2 MMOL/L (3.5-5.1); SODIUM LEVEL 140 MMOL/L (136-145)
[2022-12-16 16:12] LABS: THYROID STIMULATING HORMONE 3.139 uIU/ML (0.55-4.78); VITAMIN B12 LEVEL 379 PG/ML (211-911)
[2022-12-16] MEDS: QUEtiapine FUMARATE 12.5 MG HALF-TAB PO SCH (20:38)
[2022-12-16] MEDS: LETROZOLE 2.5 MG TAB PO SCH ×2 (20:38→21:00)
[2022-12-16] MEDS: SIMVASTATIN 10 MG TAB PO SCH ×2 (20:38→21:00)
[2022-12-17 06:13] VITALS: BP 132/79; TEMP 97.9; O2SAT 93
[2022-12-17] MEDS: LEVOTHYROXINE 50MCG TABLET (0.05MG) PO SCH (06:23)
[2022-12-17] MEDS: PARoxetine 20MG TABLET PO SCH (10:16)
[2022-12-17] MEDS: CALCITRIOL 0.25 MCG CAP (S0169) PO SCH (10:17)
[2022-12-17] MEDS: APIXABAN 5 MG TAB (ELIQUIS) PO SCH ×2 (10:17→21:08)
[2022-12-17] MEDS: buPROPion **XL** TABLET 150MG (WELLBUTRIN XL) PO SCH (10:17)
[2022-12-17] MEDS: FAMOTIDINE 20 MG TAB PO SCH (10:17)
[2022-12-17] MEDS: ANALGESIC BALM CRM 3OZ TOP SCH ×4 (10:18→21:09)
[2022-12-17] MEDS: dilTIAZem 30 MG TAB PO SCH ×3 (10:25→21:08)
[2022-12-17] MEDS ORDERED: OLANZapine INTRAMUSCULAR 10MG VIAL IM ONE (12:00)
[2022-12-17 14:00] VITALS: BP 132/79; TEMP 97.9; O2SAT 93
[2022-12-17 17:35] VITALS: BP 150/80
[2022-12-17] MEDS: LETROZOLE 2.5 MG TAB PO SCH (21:00)
[2022-12-17] MEDS: QUEtiapine FUMARATE 12.5 MG HALF-TAB PO SCH (21:00)
[2022-12-17] MEDS: SIMVASTATIN 10 MG TAB PO SCH (21:07)
[2022-12-18 05:00] VITALS: BP 128/71; TEMP 98.2; O2SAT 93
[2022-12-18] MEDS: LEVOTHYROXINE 50MCG TABLET (0.05MG) PO SCH (05:01)
[2022-12-18] MEDS: ANALGESIC BALM CRM 3OZ TOP SCH ×4 (09:00→21:43)
[2022-12-18] MEDS: FAMOTIDINE 20 MG TAB PO SCH (09:00)
[2022-12-18] MEDS: APIXABAN 5 MG TAB (ELIQUIS) PO SCH ×2 (10:24→21:43)
[2022-12-18] MEDS: dilTIAZem 30 MG TAB PO SCH ×3 (10:24→21:00)
[2022-12-18] MEDS: PARoxetine 20MG TABLET PO SCH (10:24)
[2022-12-18] MEDS: buPROPion **XL** TABLET 150MG (WELLBUTRIN XL) PO SCH (10:24)
[2022-12-18] MEDS: CALCITRIOL 0.25 MCG CAP (S0169) PO SCH (10:24)
[2022-12-18] MEDS: NYSTATIN CREAM 15GM TOP PRN (10:28)
[2022-12-18] MEDS: LETROZOLE 2.5 MG TAB PO SCH (21:43)
[2022-12-18] MEDS: SIMVASTATIN 10 MG TAB PO SCH (21:43)
[2022-12-18] MEDS: QUEtiapine FUMARATE 12.5 MG HALF-TAB PO SCH (21:43)
[2022-12-19] MEDS: LEVOTHYROXINE 50MCG TABLET (0.05MG) PO SCH (05:29)
[2022-12-19 05:35] VITALS: BP 120/69; TEMP 97.2; O2SAT 97
[2022-12-19] MEDS: ANALGESIC BALM CRM 3OZ TOP SCH ×4 (09:00→21:58)
[2022-12-19] MEDS: FAMOTIDINE 20 MG TAB PO SCH ×2 (09:00→09:48)
[2022-12-19] MEDS: CALCITRIOL 0.25 MCG CAP (S0169) PO SCH (09:48)
[2022-12-19] MEDS: buPROPion **XL** TABLET 150MG (WELLBUTRIN XL) PO SCH (09:48)
[2022-12-19] MEDS: APIXABAN 5 MG TAB (ELIQUIS) PO SCH ×2 (09:48→21:57)
[2022-12-19] MEDS: dilTIAZem 30 MG TAB PO SCH ×3 (09:48→21:57)
[2022-12-19] MEDS: PARoxetine 20MG TABLET PO SCH (09:48)
[2022-12-19] MEDS: SIMVASTATIN 10 MG TAB PO SCH (21:57)
[2022-12-19] MEDS: LETROZOLE 2.5 MG TAB PO SCH (21:57)
[2022-12-19] MEDS: QUEtiapine FUMARATE 12.5 MG HALF-TAB PO SCH (21:57)
[2022-12-20 04:34] VITALS: BP 123/69; TEMP 98.1; O2SAT 93
[2022-12-20] MEDS: LEVOTHYROXINE 50MCG TABLET (0.05MG) PO SCH (05:49)
[2022-12-20] MEDS: dilTIAZem 30 MG TAB PO SCH ×3 (09:00→20:17)
[2022-12-20] MEDS: FAMOTIDINE 20 MG TAB PO SCH (10:17)
[2022-12-20] MEDS: CALCITRIOL 0.25 MCG CAP (S0169) PO SCH (10:17)
[2022-12-20] MEDS: APIXABAN 5 MG TAB (ELIQUIS) PO SCH (10:17)
[2022-12-20] MEDS: buPROPion **XL** TABLET 150MG (WELLBUTRIN XL) PO SCH (10:17)
[2022-12-20] MEDS: ANALGESIC BALM CRM 3OZ TOP SCH ×4 (10:18→20:18)
[2022-12-20] MEDS: PARoxetine 20MG TABLET PO SCH (10:18)
[2022-12-20 18:52] VITALS: BP_SYST 140; BP_SYST 160; BP_DIAS 70; TEMP 98.8; O2SAT 96
[2022-12-20] MEDS: SIMVASTATIN 10 MG TAB PO SCH (20:17)
[2022-12-20] MEDS: LETROZOLE 2.5 MG TAB PO SCH (20:17)
[2022-12-20] MEDS: QUEtiapine FUMARATE 12.5 MG HALF-TAB PO SCH (20:17)
[2022-12-20 20:19] VITALS: BP 123/65; TEMP 97.9; O2SAT 95
[2022-12-20] MEDS: ACETAMINOPHEN TAB 650MG DOSE (2X325MG) PO PRN (20:19)
[2022-12-21] MEDS: LEVOTHYROXINE 50MCG TABLET (0.05MG) PO SCH (05:15)
[2022-12-21 05:23] VITALS: BP 113/58; TEMP 97.3; O2SAT 96
[2022-12-21 05:38] VITALS: BP 113/58; TEMP 97.3; O2SAT 96
[2022-12-21] MEDS: ANALGESIC BALM CRM 3OZ TOP SCH ×4 (09:54→19:42)
[2022-12-21] MEDS: CALCITRIOL 0.25 MCG CAP (S0169) PO SCH (09:54)
[2022-12-21] MEDS: FAMOTIDINE 20 MG TAB PO SCH (09:54)
[2022-12-21] MEDS: buPROPion **XL** TABLET 150MG (WELLBUTRIN XL) PO SCH (09:54)
[2022-12-21] MEDS: PARoxetine 20MG TABLET PO SCH (09:54)
[2022-12-21] MEDS: dilTIAZem 30 MG TAB PO SCH ×3 (09:54→19:41)
[2022-12-21] MEDS ORDERED: ACETAMINOPHEN TAB 650MG DOSE (2X325MG) PO ONE (14:40)
[2022-12-21] MEDS: QUEtiapine FUMARATE 12.5 MG HALF-TAB PO SCH (19:40)
[2022-12-21] MEDS: RAMELTEON 8 MG TAB (ROZEREM) PO PRN (19:41)
[2022-12-21] MEDS: SIMVASTATIN 10 MG TAB PO SCH (19:41)
[2022-12-21] MEDS: LETROZOLE 2.5 MG TAB PO SCH (19:41)
[2022-12-22] MEDS: LEVOTHYROXINE 50MCG TABLET (0.05MG) PO SCH (05:29)
[2022-12-22 05:34] VITALS: BP 114/55; TEMP 97.7; O2SAT 94
[2022-12-22] MEDS: CALCITRIOL 0.25 MCG CAP (S0169) PO SCH (10:15)
[2022-12-22] MEDS: PARoxetine 20MG TABLET PO SCH (10:15)
[2022-12-22] MEDS: APIXABAN 5 MG TAB (ELIQUIS) PO SCH ×2 (10:15→20:14)
[2022-12-22] MEDS: buPROPion **XL** TABLET 150MG (WELLBUTRIN XL) PO SCH (10:16)
[2022-12-22] MEDS: FAMOTIDINE 20 MG TAB PO SCH (10:16)
[2022-12-22] MEDS: dilTIAZem 30 MG TAB PO SCH ×3 (10:17→20:15)
[2022-12-22] MEDS: ANALGESIC BALM CRM 3OZ TOP SCH ×4 (10:18→20:15)
[2022-12-22] MEDS: LETROZOLE 2.5 MG TAB PO SCH (20:14)
[2022-12-22] MEDS: QUEtiapine FUMARATE 12.5 MG HALF-TAB PO SCH (20:14)
[2022-12-22] MEDS: SIMVASTATIN 10 MG TAB PO SCH (20:14)
[2022-12-22] MEDS: RAMELTEON 8 MG TAB (ROZEREM) PO PRN (20:14)
[2022-12-23] MEDS: LEVOTHYROXINE 50MCG TABLET (0.05MG) PO SCH (04:52)
[2022-12-23 05:04] VITALS: BP 104/74; TEMP 97.5; O2SAT 95
[2022-12-23] MEDS: dilTIAZem 30 MG TAB PO SCH ×3 (09:00→20:49)
[2022-12-23] MEDS: APIXABAN 5 MG TAB (ELIQUIS) PO SCH ×2 (10:03→20:46)
[2022-12-23] MEDS: PARoxetine 20MG TABLET PO SCH (10:04)
[2022-12-23] MEDS: FAMOTIDINE 20 MG TAB PO SCH (10:04)
[2022-12-23] MEDS: CALCITRIOL 0.25 MCG CAP (S0169) PO SCH (10:05)
[2022-12-23] MEDS: buPROPion **XL** TABLET 150MG (WELLBUTRIN XL) PO SCH (10:05)
[2022-12-23] MEDS: ANALGESIC BALM CRM 3OZ TOP SCH ×4 (10:05→20:47)
[2022-12-23] MEDS: ACETAMINOPHEN TAB 650MG DOSE (2X325MG) PO PRN ×2 (16:59→20:45)
[2022-12-23] MEDS: RAMELTEON 8 MG TAB (ROZEREM) PO PRN (20:45)
[2022-12-23] MEDS: LETROZOLE 2.5 MG TAB PO SCH (20:45)
[2022-12-23] MEDS: SIMVASTATIN 10 MG TAB PO SCH (20:46)
[2022-12-23] MEDS: QUEtiapine FUMARATE 12.5 MG HALF-TAB PO SCH (20:46)
[2022-12-24 04:40] VITALS: BP 110/63; TEMP 97.7; O2SAT 94
[2022-12-24] MEDS: LEVOTHYROXINE 50MCG TABLET (0.05MG) PO SCH (05:32)
[2022-12-24] MEDS: dilTIAZem 30 MG TAB PO SCH ×3 (07:44→20:30)
[2022-12-24] MEDS: APIXABAN 5 MG TAB (ELIQUIS) PO SCH ×2 (08:11→20:28)
[2022-12-24] MEDS: buPROPion **XL** TABLET 150MG (WELLBUTRIN XL) PO SCH (08:12)
[2022-12-24] MEDS: CALCITRIOL 0.25 MCG CAP (S0169) PO SCH (08:12)
[2022-12-24] MEDS: PARoxetine 20MG TABLET PO SCH (08:12)
[2022-12-24] MEDS: FAMOTIDINE 20 MG TAB PO SCH (08:12)
[2022-12-24] MEDS: ANALGESIC BALM CRM 3OZ TOP SCH ×4 (08:14→20:30)
[2022-12-24] MEDS: LETROZOLE 2.5 MG TAB PO SCH (20:28)
[2022-12-24] MEDS: RAMELTEON 8 MG TAB (ROZEREM) PO PRN (20:28)
[2022-12-24] MEDS: SIMVASTATIN 10 MG TAB PO SCH (20:28)
[2022-12-24] MEDS: QUEtiapine FUMARATE 12.5 MG HALF-TAB PO SCH (20:29)
[2022-12-24] MEDS: ACETAMINOPHEN TAB 650MG DOSE (2X325MG) PO PRN (20:29)
[2022-12-25] MEDS: LEVOTHYROXINE 50MCG TABLET (0.05MG) PO SCH (05:08)
[2022-12-25 05:10] VITALS: BP 112/65; TEMP 98.1; O2SAT 95
[2022-12-25] MEDS: APIXABAN 5 MG TAB (ELIQUIS) PO SCH ×2 (08:52→20:21)
[2022-12-25] MEDS: buPROPion **XL** TABLET 150MG (WELLBUTRIN XL) PO SCH (08:52)
[2022-12-25] MEDS: PARoxetine 20MG TABLET PO SCH (08:52)
[2022-12-25] MEDS: CALCITRIOL 0.25 MCG CAP (S0169) PO SCH (08:52)
[2022-12-25] MEDS: FAMOTIDINE 20 MG TAB PO SCH (08:53)
[2022-12-25] MEDS: dilTIAZem 30 MG TAB PO SCH ×3 (08:53→20:22)
[2022-12-25] MEDS: ANALGESIC BALM CRM 3OZ TOP SCH ×4 (08:53→20:23)
[2022-12-25] MEDS: LETROZOLE 2.5 MG TAB PO SCH (20:21)
[2022-12-25] MEDS: QUEtiapine FUMARATE 12.5 MG HALF-TAB PO SCH (20:21)
[2022-12-25] MEDS: RAMELTEON 8 MG TAB (ROZEREM) PO PRN (20:21)
[2022-12-25] MEDS: SIMVASTATIN 10 MG TAB PO SCH (20:21)
[2022-12-25] MEDS: ACETAMINOPHEN TAB 650MG DOSE (2X325MG) PO PRN (20:22)
[2022-12-26] MEDS: LEVOTHYROXINE 50MCG TABLET (0.05MG) PO SCH (05:11)
[2022-12-26 05:18] VITALS: BP 125/66; TEMP 97.9; O2SAT 94
[2022-12-26] MEDS: dilTIAZem 30 MG TAB PO SCH ×3 (08:55→20:15)
[2022-12-26] MEDS: APIXABAN 5 MG TAB (ELIQUIS) PO SCH ×2 (08:55→20:14)
[2022-12-26] MEDS: FAMOTIDINE 20 MG TAB PO SCH (08:55)
[2022-12-26] MEDS: ANALGESIC BALM CRM 3OZ TOP SCH ×4 (08:55→20:15)
[2022-12-26] MEDS: buPROPion **XL** TABLET 150MG (WELLBUTRIN XL) PO SCH (08:55)
[2022-12-26] MEDS: CALCITRIOL 0.25 MCG CAP (S0169) PO SCH (08:55)
[2022-12-26] MEDS: PARoxetine 20MG TABLET PO SCH (08:55)
[2022-12-26] MEDS: SIMVASTATIN 10 MG TAB PO SCH (20:14)
[2022-12-26] MEDS: QUEtiapine FUMARATE 12.5 MG HALF-TAB PO SCH ×2 (20:14→20:58)
[2022-12-26] MEDS: RAMELTEON 8 MG TAB (ROZEREM) PO PRN (20:14)
[2022-12-26] MEDS: ACETAMINOPHEN TAB 650MG DOSE (2X325MG) PO PRN (20:14)
[2022-12-26] MEDS: LETROZOLE 2.5 MG TAB PO SCH (20:14)
[2022-12-27] MEDS: LEVOTHYROXINE 50MCG TABLET (0.05MG) PO SCH (04:29)
[2022-12-27 04:30] VITALS: BP 151/89; TEMP 98.1; O2SAT 96
[2022-12-27] MEDS: dilTIAZem 30 MG TAB PO SCH ×3 (09:00→20:19)
[2022-12-27] MEDS: PARoxetine 20MG TABLET PO SCH (09:55)
[2022-12-27] MEDS: APIXABAN 5 MG TAB (ELIQUIS) PO SCH ×2 (09:56→20:19)
[2022-12-27] MEDS: buPROPion **XL** TABLET 150MG (WELLBUTRIN XL) PO SCH (09:56)
[2022-12-27] MEDS: CALCITRIOL 0.25 MCG CAP (S0169) PO SCH (09:56)
[2022-12-27] MEDS: FAMOTIDINE 20 MG TAB PO SCH (09:56)
[2022-12-27] MEDS: ANALGESIC BALM CRM 3OZ TOP SCH ×4 (09:58→20:19)
[2022-12-27] MEDS: LETROZOLE 2.5 MG TAB PO SCH (20:17)
[2022-12-27] MEDS: SIMVASTATIN 10 MG TAB PO SCH (20:17)
[2022-12-27] MEDS: QUEtiapine FUMARATE 12.5 MG HALF-TAB PO SCH ×2 (20:19→20:22)
[2022-12-28 04:50] VITALS: BP 116/60; TEMP 98.1; O2SAT 95
[2022-12-28] MEDS: LEVOTHYROXINE 50MCG TABLET (0.05MG) PO SCH (05:31)
[2022-12-28] MEDS: PARoxetine 20MG TABLET PO SCH (08:46)
[2022-12-28] MEDS: dilTIAZem 30 MG TAB PO SCH ×3 (08:46→19:58)
[2022-12-28] MEDS: CALCITRIOL 0.25 MCG CAP (S0169) PO SCH (08:46)
[2022-12-28] MEDS: FAMOTIDINE 20 MG TAB PO SCH (08:47)
[2022-12-28] MEDS: buPROPion **XL** TABLET 150MG (WELLBUTRIN XL) PO SCH (08:47)
[2022-12-28] MEDS: APIXABAN 5 MG TAB (ELIQUIS) PO SCH ×2 (08:47→19:57)
[2022-12-28] MEDS: ANALGESIC BALM CRM 3OZ TOP SCH ×4 (08:47→19:59)
[2022-12-28] MEDS: SIMVASTATIN 10 MG TAB PO SCH (19:57)
[2022-12-28] MEDS: LETROZOLE 2.5 MG TAB PO SCH (19:57)
[2022-12-28] MEDS: QUEtiapine FUMARATE 12.5 MG HALF-TAB PO SCH (19:57)
[2022-12-29 04:54] VITALS: BP 131/79; TEMP 98; O2SAT 97
[2022-12-29] MEDS: LEVOTHYROXINE 50MCG TABLET (0.05MG) PO SCH (04:54)
[2022-12-29 06:00] VITALS: BP 131/85; TEMP 98.2; O2SAT 95
[2022-12-29] MEDS: buPROPion **XL** TABLET 150MG (WELLBUTRIN XL) PO SCH (09:29)
[2022-12-29] MEDS: APIXABAN 5 MG TAB (ELIQUIS) PO SCH ×2 (09:29→20:14)
[2022-12-29] MEDS: FAMOTIDINE 20 MG TAB PO SCH (09:29)
[2022-12-29] MEDS: PARoxetine 20MG TABLET PO SCH (09:29)
[2022-12-29] MEDS: CALCITRIOL 0.25 MCG CAP (S0169) PO SCH (09:29)
[2022-12-29] MEDS: ANALGESIC BALM CRM 3OZ TOP SCH ×4 (09:30→20:19)
[2022-12-29] MEDS: dilTIAZem 30 MG TAB PO SCH ×3 (09:32→20:17)
[2022-12-29 15:00] LABS: APPEARANCE, URINE HAZY (CLEAR); BACTERIA, URINE AUTO 1+ (NEGATIVE); BILIRUBIN, URINE AUTO NEGATIVE (NEGATIVE); BLOOD, URINE BLOOD 3+ (NEGATIVE); COLOR, URINE YELLOW (YELLOW); GLUCOSE, URINE (UA) AUTO NEGATIVE (NEGATIVE); KETONE, URINE AUTO NEGATIVE (NEGATIVE); LEUKOCYTE ESTERASE, URINE AUTO TRACE (NEGATIVE); NITRITE, URINE AUTO NEGATIVE (NEGATIVE); PROTEIN, URINE AUTO 1+ mg/dL (NEGATIVE); RBC, URINE AUTO TNTC /HPF (0-3); SPECIFIC GRAVITY URINE AUTO 1.013 (1.002-1.035); SQUAMOUS EPITHELIAL CELL UR AU 6 /HPF (0-6); WBC, URINE AUTO 3 /HPF (0-3)
[2022-12-29 17:12] LABS: BASO # 0.1 10^3/uL (0.0-0.2); BASO % 0.9 % (0.0-1.0); EOS # 0.5 10^3/uL (0.0-0.5); EOS % 5.5 % (0.0-3.0); HEMATOCRIT 39.9 % (36.0-47.0); HEMOGLOBIN 12.8 g/dl (12.0-15.5); LYMPH # 1.4 10^3/uL (1.5-5.0); LYMPH % 15.4 % (24.0-44.0); MEAN CORPUSCULAR HEMOGLOBIN 29.7 pg (27.0-33.0); MEAN CORPUSCULAR HGB CONC 32.1 g/dl (32.0-36.5); MEAN CORPUSCULAR VOLUME 92.6 fl (80.0-96.0); MONO # 0.9 10^3/uL (0.0-0.8); NEUTROPHILS # 6.1 10^3/uL (1.5-8.5); NEUTROPHILS % 67.9 % (36.0-66.0); PLATELET COUNT, AUTOMATED 538 10^3/uL (150-450); RED BLOOD COUNT 4.31 10^6/uL (4.00-5.40); WHITE BLOOD COUNT 8.9 10^3/uL (4.0-10.0)
[2022-12-29 17:20] VITALS: BP 155/88; TEMP 99; O2SAT 92
[2022-12-29] MEDS: LETROZOLE 2.5 MG TAB PO SCH (20:13)
[2022-12-29] MEDS: RAMELTEON 8 MG TAB (ROZEREM) PO PRN (20:13)
[2022-12-29] MEDS: SIMVASTATIN 10 MG TAB PO SCH (20:14)
[2022-12-29] MEDS: QUEtiapine FUMARATE 25 MG TAB PO SCH (20:18)
[2022-12-30 04:40] VITALS: BP 147/88; TEMP 98.2; O2SAT 94
[2022-12-30] MEDS: LEVOTHYROXINE 50MCG TABLET (0.05MG) PO SCH (05:27)
[2022-12-30] MEDS: APIXABAN 5 MG TAB (ELIQUIS) PO SCH ×2 (09:53→20:52)
[2022-12-30] MEDS: FAMOTIDINE 20 MG TAB PO SCH (09:53)
[2022-12-30] MEDS: CALCITRIOL 0.25 MCG CAP (S0169) PO SCH (09:53)
[2022-12-30] MEDS: buPROPion **XL** TABLET 150MG (WELLBUTRIN XL) PO SCH (09:53)
[2022-12-30] MEDS: PARoxetine 20MG TABLET PO SCH (09:53)
[2022-12-30] MEDS: ANALGESIC BALM CRM 3OZ TOP SCH ×4 (09:54→20:53)
[2022-12-30] MEDS: dilTIAZem 30 MG TAB PO SCH ×3 (09:57→20:53)
[2022-12-30] MEDS: BACITRACIN OINTMENT 30GM TUBE TOP SCH (17:44)
[2022-12-30] MEDS: LETROZOLE 2.5 MG TAB PO SCH (20:52)
[2022-12-30] MEDS: SIMVASTATIN 10 MG TAB PO SCH (20:52)
[2022-12-30] MEDS: QUEtiapine FUMARATE 25 MG TAB PO SCH (20:52)
[2022-12-30] MEDS: RAMELTEON 8 MG TAB (ROZEREM) PO PRN (20:53)
[2022-12-31 05:27] VITALS: BP 112/66; TEMP 97.7; O2SAT 95
[2022-12-31] MEDS: LEVOTHYROXINE 50MCG TABLET (0.05MG) PO SCH (06:13)
[2022-12-31] MEDS: CALCITRIOL 0.25 MCG CAP (S0169) PO SCH (09:49)
[2022-12-31] MEDS: APIXABAN 5 MG TAB (ELIQUIS) PO SCH ×2 (09:49→20:07)
[2022-12-31] MEDS: FAMOTIDINE 20 MG TAB PO SCH (09:50)
[2022-12-31] MEDS: PARoxetine 20MG TABLET PO SCH (09:50)
[2022-12-31] MEDS: dilTIAZem 30 MG TAB PO SCH ×3 (09:50→20:06)
[2022-12-31] MEDS: BACITRACIN OINTMENT 30GM TUBE TOP SCH (09:51)
[2022-12-31] MEDS: buPROPion **XL** TABLET 150MG (WELLBUTRIN XL) PO SCH (09:51)
[2022-12-31] MEDS: ANALGESIC BALM CRM 3OZ TOP SCH ×4 (09:51→20:06)
[2022-12-31] MEDS ORDERED: OLANZapine INTRAMUSCULAR 10MG VIAL IM ONE (17:00)
[2022-12-31] MEDS: LETROZOLE 2.5 MG TAB PO SCH (20:06)
[2022-12-31] MEDS: QUEtiapine FUMARATE 25 MG TAB PO SCH (20:07)
[2022-12-31] MEDS: SIMVASTATIN 10 MG TAB PO SCH (20:07)
[2022-12-31] MEDS: RAMELTEON 8 MG TAB (ROZEREM) PO PRN (20:07)
[2023-01-01 01:20] VITALS: BP 121/65; TEMP 98.2; O2SAT 95
[2023-01-01 06:23] VITALS: BP 112/68; TEMP 97.7; O2SAT 97
[2023-01-01] MEDS: LEVOTHYROXINE 50MCG TABLET (0.05MG) PO SCH (06:24)
[2023-01-01] MEDS: APIXABAN 5 MG TAB (ELIQUIS) PO SCH ×2 (11:57→20:08)
[2023-01-01] MEDS: CALCITRIOL 0.25 MCG CAP (S0169) PO SCH (11:57)
[2023-01-01] MEDS: buPROPion **XL** TABLET 150MG (WELLBUTRIN XL) PO SCH (11:57)
[2023-01-01] MEDS: FAMOTIDINE 20 MG TAB PO SCH (11:57)
[2023-01-01] MEDS: dilTIAZem 30 MG TAB PO SCH ×3 (11:58→20:08)
[2023-01-01] MEDS: PARoxetine 20MG TABLET PO SCH (11:58)
[2023-01-01] MEDS: ANALGESIC BALM CRM 3OZ TOP SCH ×4 (12:01→20:08)
[2023-01-01] MEDS: BACITRACIN OINTMENT 30GM TUBE TOP SCH (12:01)
[2023-01-01] MEDS: SIMVASTATIN 10 MG TAB PO SCH (20:08)
[2023-01-01] MEDS: RAMELTEON 8 MG TAB (ROZEREM) PO PRN (20:08)
[2023-01-01] MEDS: QUEtiapine FUMARATE 25 MG TAB PO SCH (20:08)
[2023-01-01] MEDS: LETROZOLE 2.5 MG TAB PO SCH (20:08)
[2023-01-01] MEDS: ACETAMINOPHEN TAB 650MG DOSE (2X325MG) PO PRN (20:10)
[2023-01-02] MEDS: LEVOTHYROXINE 50MCG TABLET (0.05MG) PO SCH (05:16)
[2023-01-02 06:00] VITALS: BP 118/78; TEMP 97.7; O2SAT 94
[2023-01-02] MEDS: dilTIAZem 30 MG TAB PO SCH ×3 (08:31→21:11)
[2023-01-02] MEDS: buPROPion **XL** TABLET 150MG (WELLBUTRIN XL) PO SCH (08:32)
[2023-01-02] MEDS: CALCITRIOL 0.25 MCG CAP (S0169) PO SCH (08:32)
[2023-01-02] MEDS: FAMOTIDINE 20 MG TAB PO SCH (08:32)
[2023-01-02] MEDS: APIXABAN 5 MG TAB (ELIQUIS) PO SCH ×2 (08:32→21:11)
[2023-01-02] MEDS: PARoxetine 20MG TABLET PO SCH (08:32)
[2023-01-02] MEDS: BACITRACIN OINTMENT 30GM TUBE TOP SCH (08:33)
[2023-01-02] MEDS: ANALGESIC BALM CRM 3OZ TOP SCH ×4 (08:33→21:12)
[2023-01-02] MEDS ORDERED: OLANZapine INTRAMUSCULAR 10MG VIAL IM ONE (18:30)
[2023-01-02] MEDS: SIMVASTATIN 10 MG TAB PO SCH (21:11)
[2023-01-02] MEDS: LETROZOLE 2.5 MG TAB PO SCH (21:11)
[2023-01-02] MEDS: QUEtiapine FUMARATE 25 MG TAB PO SCH (21:11)
[2023-01-02] MEDS: RAMELTEON 8 MG TAB (ROZEREM) PO PRN (21:11)
[2023-01-03] MEDS: LEVOTHYROXINE 50MCG TABLET (0.05MG) PO SCH (05:13)
[2023-01-03 06:00] VITALS: BP 110/65; TEMP 97.7; O2SAT 96
[2023-01-03] MEDS: dilTIAZem 30 MG TAB PO SCH ×3 (09:41→20:52)
[2023-01-03] MEDS: CALCITRIOL 0.25 MCG CAP (S0169) PO SCH (09:41)
[2023-01-03] MEDS: PARoxetine 20MG TABLET PO SCH (09:42)
[2023-01-03] MEDS: FAMOTIDINE 20 MG TAB PO SCH (09:42)
[2023-01-03] MEDS: APIXABAN 5 MG TAB (ELIQUIS) PO SCH ×2 (09:42→20:52)
[2023-01-03] MEDS: buPROPion **XL** TABLET 150MG (WELLBUTRIN XL) PO SCH (09:42)
[2023-01-03] MEDS: ANALGESIC BALM CRM 3OZ TOP SCH ×4 (09:43→20:53)
[2023-01-03] MEDS: BACITRACIN OINTMENT 30GM TUBE TOP SCH (09:43)
[2023-01-03] MEDS: QUEtiapine FUMARATE 50MG TAB PO SCH (16:11)
[2023-01-03] MEDS: SIMVASTATIN 10 MG TAB PO SCH (20:52)
[2023-01-03] MEDS: RAMELTEON 8 MG TAB (ROZEREM) PO PRN (20:52)
[2023-01-03] MEDS: LETROZOLE 2.5 MG TAB PO SCH (20:52)
[2023-01-03] MEDS: ACETAMINOPHEN TAB 650MG DOSE (2X325MG) PO PRN (20:53)
[2023-01-04 05:00] VITALS: BP 100/52; TEMP 97.2; O2SAT 98
[2023-01-04] MEDS: LEVOTHYROXINE 50MCG TABLET (0.05MG) PO SCH (05:14)
[2023-01-04] MEDS: APIXABAN 5 MG TAB (ELIQUIS) PO SCH ×2 (08:00→20:38)
[2023-01-04] MEDS: buPROPion **XL** TABLET 150MG (WELLBUTRIN XL) PO SCH (08:00)
[2023-01-04] MEDS: CALCITRIOL 0.25 MCG CAP (S0169) PO SCH (08:00)
[2023-01-04] MEDS: PARoxetine 20MG TABLET PO SCH (08:00)
[2023-01-04] MEDS: FAMOTIDINE 20 MG TAB PO SCH (08:00)
[2023-01-04] MEDS: ANALGESIC BALM CRM 3OZ TOP SCH ×5 (08:01→20:41)
[2023-01-04] MEDS: BACITRACIN OINTMENT 30GM TUBE TOP SCH (08:01)
[2023-01-04] MEDS: dilTIAZem 30 MG TAB PO SCH ×3 (08:01→20:38)
[2023-01-04] MEDS: QUEtiapine FUMARATE 50MG TAB PO SCH (16:11)
[2023-01-04] MEDS: ACETAMINOPHEN TAB 650MG DOSE (2X325MG) PO PRN (20:37)
[2023-01-04] MEDS: RAMELTEON 8 MG TAB (ROZEREM) PO PRN (20:37)
[2023-01-04] MEDS: LETROZOLE 2.5 MG TAB PO SCH (20:38)
[2023-01-04] MEDS: SIMVASTATIN 10 MG TAB PO SCH (20:38)
[2023-01-05] MEDS: LEVOTHYROXINE 50MCG TABLET (0.05MG) PO SCH (05:25)
[2023-01-05 05:50] VITALS: BP 115/67; TEMP 98.1; O2SAT 93
[2023-01-05] MEDS: buPROPion **XL** TABLET 150MG (WELLBUTRIN XL) PO SCH (09:25)
[2023-01-05] MEDS: FAMOTIDINE 20 MG TAB PO SCH (09:25)
[2023-01-05] MEDS: CALCITRIOL 0.25 MCG CAP (S0169) PO SCH (09:25)
[2023-01-05] MEDS: APIXABAN 5 MG TAB (ELIQUIS) PO SCH ×2 (09:25→21:04)
[2023-01-05] MEDS: PARoxetine 20MG TABLET PO SCH (09:25)
[2023-01-05] MEDS: BACITRACIN OINTMENT 30GM TUBE TOP SCH (09:25)
[2023-01-05] MEDS: ANALGESIC BALM CRM 3OZ TOP SCH ×4 (09:26→21:04)
[2023-01-05] MEDS: dilTIAZem 30 MG TAB PO SCH ×3 (09:28→21:04)
[2023-01-05] MEDS: QUEtiapine FUMARATE 50MG TAB PO SCH (16:28)
[2023-01-05] MEDS: ACETAMINOPHEN TAB 650MG DOSE (2X325MG) PO PRN (21:04)
[2023-01-05] MEDS: SIMVASTATIN 10 MG TAB PO SCH (21:04)
[2023-01-05] MEDS: RAMELTEON 8 MG TAB (ROZEREM) PO PRN (21:04)
[2023-01-05] MEDS: LETROZOLE 2.5 MG TAB PO SCH (21:04)
[2023-01-06 04:30] VITALS: BP 115/62; TEMP 97.9; O2SAT 93
[2023-01-06] MEDS: LEVOTHYROXINE 50MCG TABLET (0.05MG) PO SCH (05:16)
[2023-01-06] MEDS: dilTIAZem 30 MG TAB PO SCH ×3 (09:00→20:46)
[2023-01-06] MEDS: ANALGESIC BALM CRM 3OZ TOP SCH ×4 (09:00→20:45)
[2023-01-06] MEDS: APIXABAN 5 MG TAB (ELIQUIS) PO SCH ×2 (09:48→20:46)
[2023-01-06] MEDS: PARoxetine 20MG TABLET PO SCH (09:48)
[2023-01-06] MEDS: CALCITRIOL 0.25 MCG CAP (S0169) PO SCH (09:48)
[2023-01-06] MEDS: buPROPion **XL** TABLET 150MG (WELLBUTRIN XL) PO SCH (09:48)
[2023-01-06] MEDS: FAMOTIDINE 20 MG TAB PO SCH (09:48)
[2023-01-06] MEDS: BACITRACIN OINTMENT 30GM TUBE TOP SCH (09:50)
[2023-01-06] MEDS ORDERED: FLUZONE HIGH DOSE(65YR UP)QUAD/PF 240MCG/0.7ML SYRINGE IM.IMMUN ONE (10:00)
[2023-01-06] MEDS: QUEtiapine FUMARATE 50MG TAB PO SCH (16:00)
[2023-01-06] MEDS: ACETAMINOPHEN TAB 650MG DOSE (2X325MG) PO PRN (20:45)
[2023-01-06] MEDS: RAMELTEON 8 MG TAB (ROZEREM) PO PRN (20:45)
[2023-01-06] MEDS: SIMVASTATIN 10 MG TAB PO SCH (20:46)
[2023-01-07 04:40] VITALS: BP 111/65; TEMP 97.7; O2SAT 93
[2023-01-07] MEDS: LEVOTHYROXINE 50MCG TABLET (0.05MG) PO SCH (05:04)
[2023-01-07] MEDS ORDERED: FLUZONE HIGH DOSE(65YR UP)QUAD/PF 240MCG/0.7ML SYRINGE IM.IMMUN ONE (09:00)
[2023-01-07] MEDS: CALCITRIOL 0.25 MCG CAP (S0169) PO SCH (09:32)
[2023-01-07] MEDS: buPROPion **XL** TABLET 150MG (WELLBUTRIN XL) PO SCH (09:33)
[2023-01-07] MEDS: dilTIAZem 30 MG TAB PO SCH ×3 (09:33→20:53)
[2023-01-07] MEDS: PARoxetine 20MG TABLET PO SCH (09:33)
[2023-01-07] MEDS: FAMOTIDINE 20 MG TAB PO SCH (09:33)
[2023-01-07] MEDS: APIXABAN 5 MG TAB (ELIQUIS) PO SCH ×2 (09:33→20:53)
[2023-01-07] MEDS: BACITRACIN OINTMENT 30GM TUBE TOP SCH (09:34)
[2023-01-07] MEDS: ANALGESIC BALM CRM 3OZ TOP SCH ×4 (09:34→20:53)
[2023-01-07] MEDS: QUEtiapine FUMARATE 50MG TAB PO SCH (16:46)
[2023-01-07] MEDS: SIMVASTATIN 10 MG TAB PO SCH (20:53)
[2023-01-08 05:35] VITALS: BP 125/74; TEMP 98.1; O2SAT 94
[2023-01-08] MEDS: LEVOTHYROXINE 50MCG TABLET (0.05MG) PO SCH (05:36)
[2023-01-08] MEDS: FAMOTIDINE 20 MG TAB PO SCH (09:42)
[2023-01-08] MEDS: dilTIAZem 30 MG TAB PO SCH ×3 (09:42→20:30)
[2023-01-08] MEDS: APIXABAN 5 MG TAB (ELIQUIS) PO SCH ×2 (09:42→20:29)
[2023-01-08] MEDS: buPROPion **XL** TABLET 150MG (WELLBUTRIN XL) PO SCH (09:42)
[2023-01-08] MEDS: CALCITRIOL 0.25 MCG CAP (S0169) PO SCH (09:42)
[2023-01-08] MEDS: PARoxetine 20MG TABLET PO SCH (09:42)
[2023-01-08] MEDS: ANALGESIC BALM CRM 3OZ TOP SCH ×4 (09:43→20:30)
[2023-01-08] MEDS: BACITRACIN OINTMENT 30GM TUBE TOP SCH (09:44)
[2023-01-08] MEDS: QUEtiapine FUMARATE 50MG TAB PO SCH (16:27)
[2023-01-08] MEDS: SIMVASTATIN 10 MG TAB PO SCH (20:29)
[2023-01-08] MEDS: RAMELTEON 8 MG TAB (ROZEREM) PO PRN (20:29)
[2023-01-08] MEDS: ACETAMINOPHEN TAB 650MG DOSE (2X325MG) PO PRN (20:29)
[2023-01-09] MEDS: LEVOTHYROXINE 50MCG TABLET (0.05MG) PO SCH (05:26)
[2023-01-09 05:30] VITALS: BP 116/64; TEMP 97.9; O2SAT 92
[2023-01-09] MEDS: PARoxetine 20MG TABLET PO SCH (09:09)
[2023-01-09] MEDS: CALCITRIOL 0.25 MCG CAP (S0169) PO SCH (09:09)
[2023-01-09] MEDS: buPROPion **XL** TABLET 150MG (WELLBUTRIN XL) PO SCH (09:10)
[2023-01-09] MEDS: FAMOTIDINE 20 MG TAB PO SCH (09:10)
[2023-01-09] MEDS: APIXABAN 5 MG TAB (ELIQUIS) PO SCH ×2 (09:10→20:42)
[2023-01-09] MEDS: ANALGESIC BALM CRM 3OZ TOP SCH ×4 (09:11→20:42)
[2023-01-09] MEDS: dilTIAZem 30 MG TAB PO SCH ×3 (09:18→20:42)
[2023-01-09] MEDS: QUEtiapine FUMARATE 50MG TAB PO SCH (16:00)
[2023-01-09] MEDS: SIMVASTATIN 10 MG TAB PO SCH (20:42)
[2023-01-10 05:34] VITALS: BP 119/73; TEMP 97.5; O2SAT 93
[2023-01-10] MEDS: LEVOTHYROXINE 50MCG TABLET (0.05MG) PO SCH (05:56)
[2023-01-10] MEDS: APIXABAN 5 MG TAB (ELIQUIS) PO SCH ×2 (08:13→21:51)
[2023-01-10] MEDS: CALCITRIOL 0.25 MCG CAP (S0169) PO SCH (08:13)
[2023-01-10] MEDS: dilTIAZem 30 MG TAB PO SCH ×3 (08:14→21:00)
[2023-01-10] MEDS: FAMOTIDINE 20 MG TAB PO SCH (08:14)
[2023-01-10] MEDS: PARoxetine 20MG TABLET PO SCH (08:14)
[2023-01-10] MEDS: buPROPion **XL** TABLET 150MG (WELLBUTRIN XL) PO SCH (08:14)
[2023-01-10] MEDS: ANALGESIC BALM CRM 3OZ TOP SCH ×4 (08:15→21:51)
[2023-01-10] MEDS: ACETAMINOPHEN TAB 650MG DOSE (2X325MG) PO PRN (16:38)
[2023-01-10] MEDS: QUEtiapine FUMARATE 50MG TAB PO SCH (16:38)
[2023-01-10 21:00] VITALS: BP 116/71; TEMP 97.2; O2SAT 93
[2023-01-10] MEDS: SIMVASTATIN 10 MG TAB PO SCH (21:50)
[2023-01-11 06:20] VITALS: BP 120/72; TEMP 98.1; O2SAT 95
[2023-01-11] MEDS: LEVOTHYROXINE 50MCG TABLET (0.05MG) PO SCH (06:55)
[2023-01-11] MEDS: buPROPion **XL** TABLET 150MG (WELLBUTRIN XL) PO SCH (08:17)
[2023-01-11] MEDS: dilTIAZem 30 MG TAB PO SCH ×3 (08:17→20:02)
[2023-01-11] MEDS: CALCITRIOL 0.25 MCG CAP (S0169) PO SCH (08:17)
[2023-01-11] MEDS: PARoxetine 20MG TABLET PO SCH (08:17)
[2023-01-11] MEDS: ANALGESIC BALM CRM 3OZ TOP SCH ×4 (08:17→20:02)
[2023-01-11] MEDS: APIXABAN 5 MG TAB (ELIQUIS) PO SCH ×2 (08:17→20:01)
[2023-01-11] MEDS: FAMOTIDINE 20 MG TAB PO SCH (08:17)
[2023-01-11] MEDS: QUEtiapine FUMARATE 50MG TAB PO SCH (16:10)
[2023-01-11] MEDS: SIMVASTATIN 10 MG TAB PO SCH (20:01)
[2023-01-12 06:00] VITALS: BP 132/70; TEMP 98.2; O2SAT 96
[2023-01-12] MEDS: LEVOTHYROXINE 50MCG TABLET (0.05MG) PO SCH (06:42)
[2023-01-12] MEDS: CALCITRIOL 0.25 MCG CAP (S0169) PO SCH (08:43)
[2023-01-12] MEDS: buPROPion **XL** TABLET 150MG (WELLBUTRIN XL) PO SCH (08:43)
[2023-01-12] MEDS: APIXABAN 5 MG TAB (ELIQUIS) PO SCH ×2 (08:43→21:27)
[2023-01-12] MEDS: dilTIAZem 30 MG TAB PO SCH ×3 (08:44→21:00)
[2023-01-12] MEDS: FAMOTIDINE 20 MG TAB PO SCH (08:44)
[2023-01-12] MEDS: PARoxetine 20MG TABLET PO SCH (08:44)
[2023-01-12] MEDS: ANALGESIC BALM CRM 3OZ TOP SCH ×4 (08:45→21:00)
[2023-01-12] MEDS: QUEtiapine FUMARATE 50MG TAB PO SCH (16:57)
[2023-01-12] MEDS: RAMELTEON 8 MG TAB (ROZEREM) PO PRN (21:27)
[2023-01-12] MEDS: SIMVASTATIN 10 MG TAB PO SCH (21:27)
[2023-01-13] MEDS: LEVOTHYROXINE 50MCG TABLET (0.05MG) PO SCH (06:05)
[2023-01-13 06:09] VITALS: BP 131/75; TEMP 98.1; O2SAT 94
[2023-01-13] MEDS: buPROPion **XL** TABLET 150MG (WELLBUTRIN XL) PO SCH (09:21)
[2023-01-13] MEDS: dilTIAZem 30 MG TAB PO SCH ×3 (09:21→20:18)
[2023-01-13] MEDS: PARoxetine 20MG TABLET PO SCH (09:21)
[2023-01-13] MEDS: FAMOTIDINE 20 MG TAB PO SCH (09:21)
[2023-01-13] MEDS: CALCITRIOL 0.25 MCG CAP (S0169) PO SCH (09:21)
[2023-01-13] MEDS: APIXABAN 5 MG TAB (ELIQUIS) PO SCH ×2 (09:21→20:15)
[2023-01-13] MEDS: ANALGESIC BALM CRM 3OZ TOP SCH ×4 (09:22→20:30)
[2023-01-13] MEDS: QUEtiapine FUMARATE 50MG TAB PO SCH (16:22)
[2023-01-13] MEDS: SIMVASTATIN 10 MG TAB PO SCH (20:15)
[2023-01-13] MEDS: RAMELTEON 8 MG TAB (ROZEREM) PO PRN (20:15)
[2023-01-13] MEDS: NYSTATIN CREAM 15GM TOP PRN (20:28)
[2023-01-14 04:54] VITALS: BP 140/74; TEMP 98.1; O2SAT 93
[2023-01-14] MEDS: LEVOTHYROXINE 50MCG TABLET (0.05MG) PO SCH (06:29)
[2023-01-14] MEDS: CALCITRIOL 0.25 MCG CAP (S0169) PO SCH (09:08)
[2023-01-14] MEDS: buPROPion **XL** TABLET 150MG (WELLBUTRIN XL) PO SCH (09:09)
[2023-01-14] MEDS: dilTIAZem 30 MG TAB PO SCH ×3 (09:09→20:06)
[2023-01-14] MEDS: PARoxetine 20MG TABLET PO SCH (09:09)
[2023-01-14] MEDS: FAMOTIDINE 20 MG TAB PO SCH (09:09)
[2023-01-14] MEDS: ACETAMINOPHEN TAB 650MG DOSE (2X325MG) PO PRN ×2 (09:10→20:48)
[2023-01-14] MEDS: ANALGESIC BALM CRM 3OZ TOP SCH ×4 (09:10→21:00)
[2023-01-14] MEDS: APIXABAN 5 MG TAB (ELIQUIS) PO SCH ×2 (09:10→20:48)
[2023-01-14] MEDS: QUEtiapine FUMARATE 50MG TAB PO SCH (16:19)
[2023-01-14] MEDS: RAMELTEON 8 MG TAB (ROZEREM) PO PRN (20:48)
[2023-01-14] MEDS: SIMVASTATIN 10 MG TAB PO SCH (20:48)
[2023-01-15 06:00] VITALS: BP 124/69; TEMP 97.9; O2SAT 94
[2023-01-15] MEDS: LEVOTHYROXINE 50MCG TABLET (0.05MG) PO SCH (06:33)
[2023-01-15] MEDS: ANALGESIC BALM CRM 3OZ TOP SCH ×4 (08:20→20:10)
[2023-01-15] MEDS: CALCITRIOL 0.25 MCG CAP (S0169) PO SCH (08:20)
[2023-01-15] MEDS: FAMOTIDINE 20 MG TAB PO SCH (08:20)
[2023-01-15] MEDS: PARoxetine 20MG TABLET PO SCH (08:20)
[2023-01-15] MEDS: dilTIAZem 30 MG TAB PO SCH ×3 (08:20→20:10)
[2023-01-15] MEDS: buPROPion **XL** TABLET 150MG (WELLBUTRIN XL) PO SCH (08:21)
[2023-01-15] MEDS: APIXABAN 5 MG TAB (ELIQUIS) PO SCH ×2 (08:21→20:09)
[2023-01-15] MEDS: QUEtiapine FUMARATE 50MG TAB PO SCH (16:58)
[2023-01-15] MEDS: SIMVASTATIN 10 MG TAB PO SCH (20:09)
[2023-01-15] MEDS: RAMELTEON 8 MG TAB (ROZEREM) PO PRN (20:10)
[2023-01-16 05:47] VITALS: BP 132/71; TEMP 98.2; O2SAT 96
[2023-01-16] MEDS: LEVOTHYROXINE 50MCG TABLET (0.05MG) PO SCH (05:48)
[2023-01-16] MEDS: dilTIAZem 30 MG TAB PO SCH ×3 (09:00→20:36)
[2023-01-16] MEDS: PARoxetine 20MG TABLET PO SCH (10:21)
[2023-01-16] MEDS: APIXABAN 5 MG TAB (ELIQUIS) PO SCH ×2 (10:21→20:37)
[2023-01-16] MEDS: CALCITRIOL 0.25 MCG CAP (S0169) PO SCH (10:21)
[2023-01-16] MEDS: buPROPion **XL** TABLET 150MG (WELLBUTRIN XL) PO SCH (10:22)
[2023-01-16] MEDS: FAMOTIDINE 20 MG TAB PO SCH (10:22)
[2023-01-16] MEDS: ANALGESIC BALM CRM 3OZ TOP SCH ×4 (10:24→20:37)
[2023-01-16] MEDS: QUEtiapine FUMARATE 50MG TAB PO SCH (17:00)
[2023-01-16] MEDS: RAMELTEON 8 MG TAB (ROZEREM) PO PRN (20:36)
[2023-01-16] MEDS: SIMVASTATIN 10 MG TAB PO SCH (20:37)
[2023-01-17] MEDS: LEVOTHYROXINE 50MCG TABLET (0.05MG) PO SCH (05:53)
[2023-01-17 06:00] VITALS: BP 118/77; TEMP 97.7; O2SAT 94
[2023-01-17] MEDS: FAMOTIDINE 20 MG TAB PO SCH (08:26)
[2023-01-17] MEDS: PARoxetine 20MG TABLET PO SCH (08:26)
[2023-01-17] MEDS: buPROPion **XL** TABLET 150MG (WELLBUTRIN XL) PO SCH (08:26)
[2023-01-17] MEDS: CALCITRIOL 0.25 MCG CAP (S0169) PO SCH (08:26)
[2023-01-17] MEDS: dilTIAZem 30 MG TAB PO SCH ×3 (08:26→20:31)
[2023-01-17] MEDS: APIXABAN 5 MG TAB (ELIQUIS) PO SCH ×2 (08:26→20:31)
[2023-01-17] MEDS: NYSTATIN CREAM 15GM TOP PRN ×2 (08:27→20:39)
[2023-01-17] MEDS: ANALGESIC BALM CRM 3OZ TOP SCH ×4 (08:31→21:10)
[2023-01-17] MEDS: QUEtiapine FUMARATE 50MG TAB PO SCH (17:16)
[2023-01-17] MEDS: SIMVASTATIN 10 MG TAB PO SCH (20:31)
[2023-01-18] MEDS: LEVOTHYROXINE 50MCG TABLET (0.05MG) PO SCH (05:45)
[2023-01-18 06:00] VITALS: BP 108/58; TEMP 97.9; O2SAT 96
[2023-01-18 08:00] VITALS: BP 116/65
[2023-01-18] MEDS: CALCITRIOL 0.25 MCG CAP (S0169) PO SCH (09:00)
[2023-01-18] MEDS: dilTIAZem 30 MG TAB PO SCH ×3 (09:00→20:02)
[2023-01-18] MEDS: APIXABAN 5 MG TAB (ELIQUIS) PO SCH ×2 (09:00→20:01)
[2023-01-18] MEDS: buPROPion **XL** TABLET 150MG (WELLBUTRIN XL) PO SCH (09:00)
[2023-01-18] MEDS: ANALGESIC BALM CRM 3OZ TOP SCH ×4 (09:00→20:03)
[2023-01-18] MEDS: FAMOTIDINE 20 MG TAB PO SCH (09:00)
[2023-01-18] MEDS: PARoxetine 20MG TABLET PO SCH (09:00)
[2023-01-18] MEDS: QUEtiapine FUMARATE 50MG TAB PO SCH (16:14)
[2023-01-18] MEDS: RAMELTEON 8 MG TAB (ROZEREM) PO PRN (20:01)
[2023-01-18] MEDS: SIMVASTATIN 10 MG TAB PO SCH (20:01)
[2023-01-19 05:18] VITALS: BP 112/61; TEMP 97.3; O2SAT 94
[2023-01-19] MEDS: LEVOTHYROXINE 50MCG TABLET (0.05MG) PO SCH (05:56)
[2023-01-19] MEDS: buPROPion **XL** TABLET 150MG (WELLBUTRIN XL) PO SCH (08:41)
[2023-01-19] MEDS: FAMOTIDINE 20 MG TAB PO SCH (08:41)
[2023-01-19] MEDS: PARoxetine 20MG TABLET PO SCH (08:41)
[2023-01-19] MEDS: ANALGESIC BALM CRM 3OZ TOP SCH ×4 (08:41→19:41)
[2023-01-19] MEDS: dilTIAZem 30 MG TAB PO SCH ×3 (08:41→19:41)
[2023-01-19] MEDS: APIXABAN 5 MG TAB (ELIQUIS) PO SCH ×2 (08:41→19:42)
[2023-01-19] MEDS: CALCITRIOL 0.25 MCG CAP (S0169) PO SCH (09:00)
[2023-01-19] MEDS: QUEtiapine FUMARATE 50MG TAB PO SCH (16:52)
[2023-01-19] MEDS: RAMELTEON 8 MG TAB (ROZEREM) PO PRN (19:42)
[2023-01-19] MEDS: SIMVASTATIN 10 MG TAB PO SCH (19:42)
[2023-01-20] MEDS: LEVOTHYROXINE 50MCG TABLET (0.05MG) PO SCH (05:25)
[2023-01-20 06:00] VITALS: BP 121/67; TEMP 98.1; O2SAT 95
[2023-01-20] MEDS: FAMOTIDINE 20 MG TAB PO SCH (08:37)
[2023-01-20] MEDS: PARoxetine 20MG TABLET PO SCH (08:37)
[2023-01-20] MEDS: CALCITRIOL 0.25 MCG CAP (S0169) PO SCH (08:37)
[2023-01-20] MEDS: buPROPion **XL** TABLET 150MG (WELLBUTRIN XL) PO SCH (08:37)
[2023-01-20] MEDS: APIXABAN 5 MG TAB (ELIQUIS) PO SCH ×2 (08:37→19:21)
[2023-01-20] MEDS: dilTIAZem 30 MG TAB PO SCH ×3 (08:37→19:21)
[2023-01-20] MEDS: ANALGESIC BALM CRM 3OZ TOP SCH ×4 (08:38→19:22)
[2023-01-20] MEDS: QUEtiapine FUMARATE 50MG TAB PO SCH (17:24)
[2023-01-20] MEDS: RAMELTEON 8 MG TAB (ROZEREM) PO PRN (19:21)
[2023-01-20] MEDS: SIMVASTATIN 10 MG TAB PO SCH (19:21)
[2023-01-21] MEDS: LEVOTHYROXINE 50MCG TABLET (0.05MG) PO SCH (04:52)
[2023-01-21 05:11] VITALS: BP 119/71; TEMP 98.6; O2SAT 94
[2023-01-21] MEDS: APIXABAN 5 MG TAB (ELIQUIS) PO SCH ×2 (08:03→19:23)
[2023-01-21] MEDS: FAMOTIDINE 20 MG TAB PO SCH (08:03)
[2023-01-21] MEDS: PARoxetine 20MG TABLET PO SCH (08:03)
[2023-01-21] MEDS: CALCITRIOL 0.25 MCG CAP (S0169) PO SCH (08:03)
[2023-01-21] MEDS: buPROPion **XL** TABLET 150MG (WELLBUTRIN XL) PO SCH (08:03)
[2023-01-21] MEDS: ANALGESIC BALM CRM 3OZ TOP SCH ×4 (08:04→19:23)
[2023-01-21] MEDS: dilTIAZem 30 MG TAB PO SCH ×3 (08:04→19:24)
[2023-01-21] MEDS: QUEtiapine FUMARATE 50MG TAB PO SCH (16:05)
[2023-01-21] MEDS: SIMVASTATIN 10 MG TAB PO SCH (19:23)
[2023-01-21] MEDS: RAMELTEON 8 MG TAB (ROZEREM) PO PRN (19:23)
[2023-01-22 05:30] VITALS: BP 130/74; TEMP 97.5; O2SAT 94
[2023-01-22] MEDS: LEVOTHYROXINE 50MCG TABLET (0.05MG) PO SCH (05:32)
[2023-01-22] MEDS: PARoxetine 20MG TABLET PO SCH (08:47)
[2023-01-22] MEDS: APIXABAN 5 MG TAB (ELIQUIS) PO SCH ×2 (08:47→20:16)
[2023-01-22] MEDS: CALCITRIOL 0.25 MCG CAP (S0169) PO SCH (08:47)
[2023-01-22] MEDS: ANALGESIC BALM CRM 3OZ TOP SCH ×4 (08:49→21:00)
[2023-01-22] MEDS: buPROPion **XL** TABLET 150MG (WELLBUTRIN XL) PO SCH (08:49)
[2023-01-22] MEDS: dilTIAZem 30 MG TAB PO SCH ×3 (08:49→20:25)
[2023-01-22] MEDS: FAMOTIDINE 20 MG TAB PO SCH (08:50)
[2023-01-22] MEDS: QUEtiapine FUMARATE 50MG TAB PO SCH (16:31)
[2023-01-22] MEDS: SIMVASTATIN 10 MG TAB PO SCH (20:16)
[2023-01-23] MEDS: LEVOTHYROXINE 50MCG TABLET (0.05MG) PO SCH (05:34)
[2023-01-23 05:35] VITALS: BP 120/73; TEMP 97; O2SAT 99
[2023-01-23] MEDS: CALCITRIOL 0.25 MCG CAP (S0169) PO SCH (08:29)
[2023-01-23] MEDS: buPROPion **XL** TABLET 150MG (WELLBUTRIN XL) PO SCH (08:29)
[2023-01-23] MEDS: FAMOTIDINE 20 MG TAB PO SCH (08:29)
[2023-01-23] MEDS: PARoxetine 20MG TABLET PO SCH (08:30)
[2023-01-23] MEDS: APIXABAN 5 MG TAB (ELIQUIS) PO SCH ×2 (08:30→20:36)
[2023-01-23] MEDS: ANALGESIC BALM CRM 3OZ TOP SCH ×4 (08:31→20:37)
[2023-01-23] MEDS: dilTIAZem 30 MG TAB PO SCH ×3 (08:31→20:35)
[2023-01-23] MEDS: QUEtiapine FUMARATE 50MG TAB PO SCH (16:05)
[2023-01-23] MEDS: RAMELTEON 8 MG TAB (ROZEREM) PO PRN (20:35)
[2023-01-23] MEDS: SIMVASTATIN 10 MG TAB PO SCH (20:36)
[2023-01-23] MEDS: NYSTATIN CREAM 15GM TOP PRN (20:40)
[2023-01-24 05:45] VITALS: BP 111/70; TEMP 97.8; O2SAT 99
[2023-01-24] MEDS: LEVOTHYROXINE 50MCG TABLET (0.05MG) PO SCH (06:14)
[2023-01-24] MEDS: ANALGESIC BALM CRM 3OZ TOP SCH ×4 (09:00→20:22)
[2023-01-24] MEDS: APIXABAN 5 MG TAB (ELIQUIS) PO SCH ×2 (09:05→20:21)
[2023-01-24] MEDS: FAMOTIDINE 20 MG TAB PO SCH (09:05)
[2023-01-24] MEDS: CALCITRIOL 0.25 MCG CAP (S0169) PO SCH (09:05)
[2023-01-24] MEDS: PARoxetine 20MG TABLET PO SCH (09:05)
[2023-01-24] MEDS: buPROPion **XL** TABLET 150MG (WELLBUTRIN XL) PO SCH (09:06)
[2023-01-24] MEDS: dilTIAZem 30 MG TAB PO SCH ×3 (09:06→20:15)
[2023-01-24] MEDS: QUEtiapine FUMARATE 50MG TAB PO SCH (17:01)
[2023-01-24] MEDS: RAMELTEON 8 MG TAB (ROZEREM) PO PRN (20:21)
[2023-01-24] MEDS: SIMVASTATIN 10 MG TAB PO SCH (20:21)
[2023-01-24] MEDS: ACETAMINOPHEN TAB 650MG DOSE (2X325MG) PO PRN (20:22)
[2023-01-24] MEDS: NYSTATIN CREAM 15GM TOP PRN (20:22)
[2023-01-25 04:30] VITALS: BP 127/74; TEMP 97.9; O2SAT 96
[2023-01-25] MEDS: LEVOTHYROXINE 50MCG TABLET (0.05MG) PO SCH (05:09)
[2023-01-25] MEDS: PARoxetine 20MG TABLET PO SCH (08:41)
[2023-01-25] MEDS: dilTIAZem 30 MG TAB PO SCH ×3 (08:41→21:25)
[2023-01-25] MEDS: buPROPion **XL** TABLET 150MG (WELLBUTRIN XL) PO SCH (08:41)
[2023-01-25] MEDS: APIXABAN 5 MG TAB (ELIQUIS) PO SCH ×2 (08:41→21:25)
[2023-01-25] MEDS: CALCITRIOL 0.25 MCG CAP (S0169) PO SCH (08:41)
[2023-01-25] MEDS: FAMOTIDINE 20 MG TAB PO SCH (08:41)
[2023-01-25] MEDS: ANALGESIC BALM CRM 3OZ TOP SCH ×4 (08:42→21:25)
[2023-01-25] MEDS: QUEtiapine FUMARATE 50MG TAB PO SCH (16:22)
[2023-01-25] MEDS: SIMVASTATIN 10 MG TAB PO SCH (21:25)
[2023-01-26 04:40] VITALS: BP 120/70; TEMP 98.1; O2SAT 93
[2023-01-26] MEDS: LEVOTHYROXINE 50MCG TABLET (0.05MG) PO SCH (06:00)
[2023-01-26] MEDS: buPROPion **XL** TABLET 150MG (WELLBUTRIN XL) PO SCH (08:21)
[2023-01-26] MEDS: PARoxetine 20MG TABLET PO SCH (08:21)
[2023-01-26] MEDS: FAMOTIDINE 20 MG TAB PO SCH (08:22)
[2023-01-26] MEDS: APIXABAN 5 MG TAB (ELIQUIS) PO SCH ×2 (08:22→21:40)
[2023-01-26] MEDS: CALCITRIOL 0.25 MCG CAP (S0169) PO SCH (08:22)
[2023-01-26] MEDS: dilTIAZem 30 MG TAB PO SCH ×3 (08:22→21:40)
[2023-01-26] MEDS: ANALGESIC BALM CRM 3OZ TOP SCH ×4 (08:23→21:40)
[2023-01-26] MEDS: QUEtiapine FUMARATE 50MG TAB PO SCH (16:11)
[2023-01-26] MEDS: SIMVASTATIN 10 MG TAB PO SCH (21:40)
[2023-01-27 05:36] VITALS: BP 127/75; TEMP 98.4; O2SAT 95
[2023-01-27] MEDS: LEVOTHYROXINE 50MCG TABLET (0.05MG) PO SCH (06:14)
[2023-01-27] MEDS: CALCITRIOL 0.25 MCG CAP (S0169) PO SCH (08:25)
[2023-01-27] MEDS: buPROPion **XL** TABLET 150MG (WELLBUTRIN XL) PO SCH (08:25)
[2023-01-27] MEDS: APIXABAN 5 MG TAB (ELIQUIS) PO SCH ×2 (08:25→20:41)
[2023-01-27] MEDS: FAMOTIDINE 20 MG TAB PO SCH (08:26)
[2023-01-27] MEDS: PARoxetine 20MG TABLET PO SCH (08:26)
[2023-01-27] MEDS: dilTIAZem 30 MG TAB PO SCH ×3 (08:26→20:41)
[2023-01-27] MEDS: ANALGESIC BALM CRM 3OZ TOP SCH ×4 (08:27→20:41)
[2023-01-27] MEDS: QUEtiapine FUMARATE 50MG TAB PO SCH (17:10)
[2023-01-27] MEDS: SIMVASTATIN 10 MG TAB PO SCH (20:41)
[2023-01-27] MEDS: RAMELTEON 8 MG TAB (ROZEREM) PO PRN (20:42)
[2023-01-28 05:20] VITALS: BP 117/65; TEMP 98.1; O2SAT 93
[2023-01-28] MEDS: LEVOTHYROXINE 50MCG TABLET (0.05MG) PO SCH (05:59)
[2023-01-28] MEDS: PARoxetine 20MG TABLET PO SCH (07:57)
[2023-01-28] MEDS: CALCITRIOL 0.25 MCG CAP (S0169) PO SCH (07:57)
[2023-01-28] MEDS: buPROPion **XL** TABLET 150MG (WELLBUTRIN XL) PO SCH (07:57)
[2023-01-28] MEDS: APIXABAN 5 MG TAB (ELIQUIS) PO SCH ×2 (07:58→20:03)
[2023-01-28] MEDS: dilTIAZem 30 MG TAB PO SCH ×3 (07:58→20:00)
[2023-01-28] MEDS: FAMOTIDINE 20 MG TAB PO SCH (07:58)
[2023-01-28] MEDS: ANALGESIC BALM CRM 3OZ TOP SCH ×4 (07:58→20:04)
[2023-01-28] MEDS: QUEtiapine FUMARATE 50MG TAB PO SCH (16:46)
[2023-01-28] MEDS: SIMVASTATIN 10 MG TAB PO SCH (20:03)
[2023-01-29 04:15] VITALS: BP 128/73; TEMP 98.1; O2SAT 93
[2023-01-29] MEDS: LEVOTHYROXINE 50MCG TABLET (0.05MG) PO SCH (05:43)
[2023-01-29] MEDS: CALCITRIOL 0.25 MCG CAP (S0169) PO SCH (09:03)
[2023-01-29] MEDS: PARoxetine 20MG TABLET PO SCH (09:03)
[2023-01-29] MEDS: FAMOTIDINE 20 MG TAB PO SCH (09:03)
[2023-01-29] MEDS: APIXABAN 5 MG TAB (ELIQUIS) PO SCH (09:03)
[2023-01-29] MEDS: buPROPion **XL** TABLET 150MG (WELLBUTRIN XL) PO SCH (09:04)
[2023-01-29] MEDS: ANALGESIC BALM CRM 3OZ TOP SCH (09:05)
[2023-01-29 09:08] VITALS: BP 109/57
[2023-01-29] MEDS: dilTIAZem 30 MG TAB PO SCH (09:08)
[2023-01-29] MEDS ORDERED: DILT30TA PO (09:54)
[2023-01-29] MEDS ORDERED: QUET50TA4 PO (09:54)
[2023-01-29] MEDS ORDERED: MIDO5TA PO (09:54)
== END 2023-01-29 12:05 | DRG 689 ==
LOC: M ED 15:11 → M ED INP 18:04 → ENRESERV 19:56 → M MSPAV 22:15
PROVIDERS: ADMIT General Practice; ATTEND Internal Medicine
DX: N39.0 Urinary tract infection, site not specified (principal); G93.41 Metabolic encephalopathy; S52.502A Unspecified fracture of the lower end of left radius, initial encounter for closed fracture; E03.9 Hypothyroidism, unspecified; I10 Essential (primary) hypertension; I27.20 Pulmonary hypertension, unspecified; I48.0 Paroxysmal atrial fibrillation; E78.5 Hyperlipidemia, unspecified; E83.51 Hypocalcemia; R26.9 Unspecified abnormalities of gait and mobility; S01.81XA Laceration without foreign body of other part of head, initial encounter; R29.6 Repeated falls; R31.1 Benign essential microscopic hematuria; Z85.3 Personal history of malignant neoplasm of breast; I95.1 Orthostatic hypotension; Z88.5 Allergy status to narcotic agent; Z79.899 Other long term (current) drug therapy; Z91.040 Latex allergy status; R44.1 Visual hallucinations; Z85.828 Personal history of other malignant neoplasm of skin; B96.20 Unspecified Escherichia coli [E. coli] as the cause of diseases classified elsewhere; W18.30XA Fall on same level, unspecified, initial encounter; Y92.009 Unspecified place in unspecified non-institutional (private) residence as the place of occurrence of the external cause; K21.9 Gastro-esophageal reflux disease without esophagitis

== ENCOUNTER → 2023-01-05 | Outpatient (CLI) | payer MEDICARE ==
[~2023-01-05] MED LIST changes: +DILT30TA PO
== END ==
LOC: M SOG 08:01
PROVIDERS: ATTEND Physician Assistant
DX: S52.502D Unspecified fracture of the lower end of left radius, subsequent encounter for closed fracture with routine healing (principal); Z53.9 Procedure and treatment not carried out, unspecified reason

== ENCOUNTER → 2023-02-02 | Outpatient (CLI) | payer MEDICARE, OTHER ==
[~2023-02-02] MED LIST changes: +QUET50TA4 PO
== END ==
LOC: M SOG 07:57
PROVIDERS: ATTEND Physician Assistant
DX: Z53.9 Procedure and treatment not carried out, unspecified reason (principal)

== ENCOUNTER → 2023-02-04 | Outpatient (REF) | payer MEDICARE, OTHER ==
[2023-02-04 02:02] LABS: APPEARANCE, URINE TURBID (CLEAR); BACTERIA, URINE AUTO NEGATIVE (NEGATIVE); BILIRUBIN, URINE AUTO NEGATIVE (NEGATIVE); BLOOD, URINE BLOOD 3+ (NEGATIVE); COLOR, URINE AMBER (YELLOW); GLUCOSE, URINE (UA) AUTO NEGATIVE (NEGATIVE); KETONE, URINE AUTO NEGATIVE (NEGATIVE); LEUKOCYTE ESTERASE, URINE AUTO 3+ (NEGATIVE); NITRITE, URINE AUTO NEGATIVE (NEGATIVE); PROTEIN, URINE AUTO 2+ mg/dL (NEGATIVE); RBC, URINE AUTO TNTC /HPF (0-3); SPECIFIC GRAVITY URINE AUTO 1.017 (1.002-1.035); SQUAMOUS EPITHELIAL CELL UR AU 2 /HPF (0-6); UROBILINOGEN, URINE AUTO 0.2 mg/dL (0.0-2.0); WBC, URINE AUTO TNTC /HPF (0-3)
== END ==
LOC: SKLAB4 01:42
PROVIDERS: ATTEND Internal Medicine
DX: R82.998 Other abnormal findings in urine (principal)

== ENCOUNTER → 2023-02-07 | Outpatient (CLI) | payer MEDICARE, OTHER | LOC: M SOG 07:59 | PROVIDERS: ATTEND Physician Assistant | DX: S52.502D Unspecified fracture of the lower end of left radius, subsequent encounter for closed fracture with routine healing (principal) ==

== ENCOUNTER → 2023-03-03 | Outpatient (REF) | payer MEDICARE, OTHER ==
[2023-03-03 08:22] LABS: HEMATOCRIT 38.9 % (36.0-47.0); HEMOGLOBIN 12.3 g/dl (12.0-15.5); MEAN CORPUSCULAR HEMOGLOBIN 28.7 pg (27.0-33.0); MEAN CORPUSCULAR HGB CONC 31.6 g/dl (32.0-36.5); MEAN CORPUSCULAR VOLUME 90.9 fl (80.0-96.0); PLATELET COUNT, AUTOMATED 448 10^3/uL (150-450); RED BLOOD COUNT 4.28 10^6/uL (4.00-5.40); WHITE BLOOD COUNT 8.3 10^3/uL (4.0-10.0)
[2023-03-03 08:46] LABS: ALBUMIN 2.9 G/DL (3.2-5.2); ALKALINE PHOSPHATASE 98 U/L (46-116); ALT/SGPT < 9 U/L (7.0-40); AST/SGOT 11 U/L (<34); BILIRUBIN,TOTAL 0.6 MG/DL (0.3-1.2); BLOOD UREA NITROGEN 12 MG/DL (9-23); CALCIUM LEVEL 8.6 MG/DL (8.3-10.6); CARBON DIOXIDE LEVEL 28 MMOL/L (20-31); CHLORIDE LEVEL 109 MMOL/L (98-107); CHOLESTEROL LEVEL 141 MG/DL (<200); CHOLESTEROL RISK RATIO 2.68 (<5); CREATININE FOR GFR 0.76 MG/DL (0.55-1.30); GLOMERULAR FILTRATION RATE > 60.0 (>32); GLUCOSE, FASTING 89 MG/DL (74-106); HDL CHOLESTEROL 52.6 MG/DL (>40); MAGNESIUM LEVEL 2.2 MG/DL (1.8-2.4); NON-HDL-C 88.4 MG/DL; POTASSIUM SERUM 3.9 MMOL/L (3.5-5.1); SODIUM LEVEL 143 MMOL/L (136-145); THYROID STIMULATING HORMONE 7.972 uIU/ML (0.55-4.78); TOTAL PROTEIN 6.1 G/DL (5.7-8.2); TRIGLYCERIDES LEVEL 67 MG/DL (<150)
== END ==
LOC: SKLAB4 07:00
PROVIDERS: ATTEND Internal Medicine
DX: I48.91 Unspecified atrial fibrillation (principal); E78.5 Hyperlipidemia, unspecified; E03.9 Hypothyroidism, unspecified

== ENCOUNTER → 2023-03-07 | Outpatient (REF) | payer MEDICARE, OTHER ==
[2023-03-07 14:39] LABS: BASO # 0.1 10^3/uL (0.0-0.2); BASO % 0.6 % (0.0-1.0); EOS # 0.4 10^3/uL (0.0-0.5); EOS % 2.5 % (0.0-3.0); HEMATOCRIT 41.5 % (36.0-47.0); HEMOGLOBIN 12.9 g/dl (12.0-15.5); LYMPH # 1.3 10^3/uL (1.5-5.0); LYMPH % 9.2 % (24.0-44.0); MEAN CORPUSCULAR HEMOGLOBIN 29.1 pg (27.0-33.0); MEAN CORPUSCULAR HGB CONC 31.1 g/dl (32.0-36.5); MEAN CORPUSCULAR VOLUME 93.5 fl (80.0-96.0); MONO # 1.4 10^3/uL (0.0-0.8); MONO % 9.9 % (2.0-8.0); NEUTROPHILS # 10.9 10^3/uL (1.5-8.5); NEUTROPHILS % 77.4 % (36.0-66.0); PLATELET COUNT, AUTOMATED 496 10^3/uL (150-450); RED BLOOD COUNT 4.44 10^6/uL (4.00-5.40); WHITE BLOOD COUNT 14.1 10^3/uL (4.0-10.0)
[2023-03-07 14:59] LABS: BLOOD UREA NITROGEN 16 MG/DL (9-23); CALCIUM LEVEL 8.9 MG/DL (8.3-10.6); CARBON DIOXIDE LEVEL 27 MMOL/L (20-31); CHLORIDE LEVEL 107 MMOL/L (98-107); CREATININE FOR GFR 0.85 MG/DL (0.55-1.30); GLOMERULAR FILTRATION RATE > 60.0 (>32); GLUCOSE, FASTING 133 MG/DL (74-106); POTASSIUM SERUM 4.5 MMOL/L (3.5-5.1); SODIUM LEVEL 141 MMOL/L (136-145)
== END ==
LOC: SKLAB4 13:48
PROVIDERS: ATTEND Nurse Practitioner Family
DX: R06.02 Shortness of breath (principal)

== ENCOUNTER → 2023-03-10 | Outpatient (CLI) | payer MEDICARE ==
[2023-03-10 02:20] LABS: APPEARANCE, URINE HAZY (CLEAR); BACTERIA, URINE AUTO NEGATIVE (NEGATIVE); BILIRUBIN, URINE AUTO NEGATIVE (NEGATIVE); BLOOD, URINE BLOOD 3+ (NEGATIVE); COLOR, URINE YELLOW (YELLOW); GLUCOSE, URINE (UA) AUTO NEGATIVE (NEGATIVE); KETONE, URINE AUTO NEGATIVE (NEGATIVE); LEUKOCYTE ESTERASE, URINE AUTO NEGATIVE (NEGATIVE); NITRITE, URINE AUTO NEGATIVE (NEGATIVE); PROTEIN, URINE AUTO NEGATIVE (NEGATIVE); RBC, URINE AUTO TNTC /HPF (0-3); SPECIFIC GRAVITY URINE AUTO 1.016 (1.002-1.035); SQUAMOUS EPITHELIAL CELL UR AU 3 /HPF (0-6); UROBILINOGEN, URINE AUTO 0.2 mg/dL (0.0-2.0); WBC, URINE AUTO 10 /HPF (0-3)
== END ==
LOC: SKLAB4 01:30
PROVIDERS: ATTEND Internal Medicine
DX: R41.0 Disorientation, unspecified (principal)

== ENCOUNTER → 2023-03-12 | Outpatient (REF) | payer MEDICARE, OTHER ==
[2023-03-12 08:44] LABS: HEMOGLOBIN 12.7 g/dl (12.0-15.5); MEAN CORPUSCULAR HEMOGLOBIN 29.3 pg (27.0-33.0); MEAN CORPUSCULAR HGB CONC 31.8 g/dl (32.0-36.5); MEAN CORPUSCULAR VOLUME 92.2 fl (80.0-96.0); PLATELET COUNT, AUTOMATED 444 10^3/uL (150-450); RED BLOOD COUNT 4.34 10^6/uL (4.00-5.40); WHITE BLOOD COUNT 9.3 10^3/uL (4.0-10.0)
[2023-03-12 09:15] LABS: ALBUMIN 2.9 G/DL (3.2-5.2); ALKALINE PHOSPHATASE 99 U/L (46-116); ALT/SGPT 11 U/L (7.0-40); AST/SGOT 12 U/L (<34); BILIRUBIN,TOTAL 0.7 MG/DL (0.3-1.2); BLOOD UREA NITROGEN 14 MG/DL (9-23); CALCIUM LEVEL 8.8 MG/DL (8.3-10.6); CARBON DIOXIDE LEVEL 28 MMOL/L (20-31); CHLORIDE LEVEL 108 MMOL/L (98-107); CREATININE FOR GFR 0.82 MG/DL (0.55-1.30); GLOMERULAR FILTRATION RATE > 60.0 (>32); GLUCOSE, FASTING 84 MG/DL (74-106); POTASSIUM SERUM 4.2 MMOL/L (3.5-5.1); SODIUM LEVEL 142 MMOL/L (136-145); TOTAL PROTEIN 6.1 G/DL (5.7-8.2)
== END ==
LOC: SKLAB4 08:53
PROVIDERS: ATTEND Nurse Practitioner Family
DX: U07.1 COVID-19 (principal); Z79.899 Other long term (current) drug therapy

== ENCOUNTER → 2023-03-19 | Outpatient (REF) | payer MEDICARE, OTHER ==
[2023-03-19 15:09] LABS: APPEARANCE, URINE MANUAL TURBID (CLEAR); BILIRUBIN, URINE MANUAL NEGATIVE (NEGATIVE); BLOOD URINE MANUAL POSITIVE (NEGATIVE); COLOR, URINE MANUAL YELLOW (YELLOW); GLUCOSE, URINE (UA) MANUAL NEGATIVE (NEGATIVE); KETONE, URINE MANUAL 1+ mg/dL (NEGATIVE); LEUKOCYTE ESTERASE, URINE MAN POSITIVE (NEGATIVE); NITRITE, URINE MANUAL NEGATIVE (NEGATIVE); PROTEIN, URINE MANUAL 3+ mg/dL (NEGATIVE); UROBILINOGEN, URINE MANUAL NORMAL (NORMAL)
[2023-03-19 15:25] LABS: BACTERIA, URINE LARGE AMOUNT; HYALINE CAST, URINE NONE SEEN /lpf (0-1); SQUAMOUS EPITHELIAL CELL URINE SMALL AMOUNT /hpf (SMALL AMT); TRANSITIONAL EPI CELLS, URINE SMALL AMOUNT /hpf; WBC, URINE TNTC /hpf (0-3)
== END ==
LOC: SKLAB4 13:41
PROVIDERS: ATTEND Nurse Practitioner Family
DX: R30.0 Dysuria (principal)

== ENCOUNTER → 2023-03-22 | Outpatient (CLI) | payer MEDICARE, OTHER | LOC: M SOG 07:53 | PROVIDERS: ATTEND Orthopaedic Surgery Hand Surgery | DX: S52.502D Unspecified fracture of the lower end of left radius, subsequent encounter for closed fracture with routine healing (principal); M19.032 Primary osteoarthritis, left wrist ==

== ENCOUNTER → 2023-04-12 | Outpatient (REF) | payer MEDICARE, MEDICAID ==
[2023-04-12 07:41] LABS: FREE T4 0.98 NG/DL (0.89-1.76); THYROID STIMULATING HORMONE 6.811 uIU/ML (0.55-4.78)
== END ==
LOC: SKLAB4 10:25
PROVIDERS: ATTEND Nurse Practitioner Adult Health
DX: R41.82 Altered mental status, unspecified (principal)

== ENCOUNTER → 2023-04-24 | Outpatient (REF) | payer MEDICARE, OTHER ==
[2023-04-24 16:04] LABS: BASO # 0.1 10^3/uL (0.0-0.2); BASO % 0.8 % (0.0-1.0); EOS # 0.3 10^3/uL (0.0-0.5); EOS % 3.3 % (0.0-3.0); HEMATOCRIT 42.4 % (36.0-47.0); HEMOGLOBIN 13.5 g/dl (12.0-15.5); LYMPH % 11.8 % (24.0-44.0); MEAN CORPUSCULAR HEMOGLOBIN 29.2 pg (27.0-33.0); MEAN CORPUSCULAR HGB CONC 31.8 g/dl (32.0-36.5); MEAN CORPUSCULAR VOLUME 91.6 fl (80.0-96.0); MONO # 0.7 10^3/uL (0.0-0.8); MONO % 8.3 % (2.0-8.0); NEUTROPHILS # 6.6 10^3/uL (1.5-8.5); NEUTROPHILS % 75.3 % (36.0-66.0); PLATELET COUNT, AUTOMATED 465 10^3/uL (150-450); RED BLOOD COUNT 4.63 10^6/uL (4.00-5.40); WHITE BLOOD COUNT 8.8 10^3/uL (4.0-10.0)
[2023-04-24 16:08] LABS: HEMOGLOBIN A1c 5.2 % (4.0-6.0)
[2023-04-24 16:20] LABS: ERYTHROCYTE SEDIMENTATION RATE 35 mm/hr (0-30)
[2023-04-24 16:21] LABS: ALBUMIN 2.8 G/DL (3.2-5.2); ALKALINE PHOSPHATASE 99 U/L (46-116); ALT/SGPT 9 U/L (7.0-40); AST/SGOT 10 U/L (<34); BILIRUBIN,TOTAL 0.6 MG/DL (0.3-1.2); BLOOD UREA NITROGEN 12 MG/DL (9-23); CARBON DIOXIDE LEVEL 29 MMOL/L (20-31); CHLORIDE LEVEL 107 MMOL/L (98-107); CREATININE FOR GFR 0.83 MG/DL (0.55-1.30); GLOMERULAR FILTRATION RATE > 60.0 (>32); GLUCOSE, FASTING 125 MG/DL (74-106); POTASSIUM SERUM 3.6 MMOL/L (3.5-5.1); SODIUM LEVEL 140 MMOL/L (136-145)
[2023-04-24 16:25] LABS: THYROID STIMULATING HORMONE 6.096 uIU/ML (0.55-4.78)
[2023-04-24 16:26] LABS: FOLATE 14.1 NG/ML (>5.4)
[2023-04-24 16:27] LABS: VITAMIN B12 LEVEL 489 PG/ML (211-911)
== END ==
LOC: SKLAB4 14:31
PROVIDERS: ATTEND Nurse Practitioner Adult Health
DX: R41.89 Other symptoms and signs involving cognitive functions and awareness (principal); Z79.899 Other long term (current) drug therapy

== ENCOUNTER → 2023-04-26 | Outpatient (REF) | payer MEDICARE, MEDICAID | LOC: SKLAB4 09:41 | PROVIDERS: ATTEND Nurse Practitioner Adult Health | DX: Z01.818 Encounter for other preprocedural examination (principal); I48.91 Unspecified atrial fibrillation ==

== ENCOUNTER → 2023-05-31 | Outpatient (REF) | payer MEDICARE, MEDICAID ==
[2023-05-31 14:53] LABS: APPEARANCE, URINE CLOUDY (CLEAR); BACTERIA, URINE AUTO 1+ (NEGATIVE); BILIRUBIN, URINE AUTO NEGATIVE (NEGATIVE); BLOOD, URINE BLOOD 3+ (NEGATIVE); CALCIUM OXALATE CRYSTALS MODERATE; COLOR, URINE AMBER (YELLOW); GLUCOSE, URINE (UA) AUTO NEGATIVE (NEGATIVE); KETONE, URINE AUTO NEGATIVE (NEGATIVE); LEUKOCYTE ESTERASE, URINE AUTO 2+ (NEGATIVE); MUCUS, URINE SMALL (NEGATIVE); NITRITE, URINE AUTO NEGATIVE (NEGATIVE); PROTEIN, URINE AUTO 2+ mg/dL (NEGATIVE); RBC, URINE AUTO TNTC /HPF (0-3); SPECIFIC GRAVITY URINE AUTO 1.017 (1.002-1.035); SQUAMOUS EPITHELIAL CELL UR AU 49 /HPF (0-6); WBC, URINE AUTO 78 /HPF (0-3)
== END ==
LOC: SKLAB4 14:21
PROVIDERS: ATTEND Nurse Practitioner Adult Health
DX: R30.9 Painful micturition, unspecified (principal)

== ENCOUNTER → 2023-06-01 | Outpatient (REF) | payer MEDICARE, MEDICAID ==
[2023-06-01 20:31] LABS: APPEARANCE, URINE TURBID (CLEAR); BACTERIA, URINE AUTO NEGATIVE (NEGATIVE); BILIRUBIN, URINE AUTO NEGATIVE (NEGATIVE); BLOOD, URINE BLOOD 2+ (NEGATIVE); CALCIUM OXALATE CRYSTALS SMALL; COLOR, URINE AMBER (YELLOW); GLUCOSE, URINE (UA) AUTO NEGATIVE (NEGATIVE); KETONE, URINE AUTO TRACE mg/dL (NEGATIVE); LEUKOCYTE ESTERASE, URINE AUTO 2+ (NEGATIVE); MUCUS, URINE SMALL (NEGATIVE); NITRITE, URINE AUTO NEGATIVE (NEGATIVE); PROTEIN, URINE AUTO 2+ mg/dL (NEGATIVE); RBC, URINE AUTO TNTC /HPF (0-3); SPECIFIC GRAVITY URINE AUTO 1.019 (1.002-1.035); SQUAMOUS EPITHELIAL CELL UR AU 31 /HPF (0-6); WBC, URINE AUTO TNTC /HPF (0-3)
== END ==
LOC: SKLAB4 15:41
PROVIDERS: ATTEND Nurse Practitioner Adult Health
DX: R30.0 Dysuria (principal)

== ENCOUNTER → 2023-08-23 | Outpatient (REF) | payer MEDICARE, MEDICAID ==
[2023-08-23 06:58] LABS: HEMATOCRIT 34.9 % (36.0-47.0); HEMOGLOBIN 11.3 g/dl (12.0-15.5); MEAN CORPUSCULAR HEMOGLOBIN 30.4 pg (27.0-33.0); MEAN CORPUSCULAR HGB CONC 32.4 g/dl (32.0-36.5); MEAN CORPUSCULAR VOLUME 93.8 fl (80.0-96.0); PLATELET COUNT, AUTOMATED 456 10^3/uL (150-450); RED BLOOD COUNT 3.72 10^6/uL (4.00-5.40); WHITE BLOOD COUNT 10.3 10^3/uL (4.0-10.0)
[2023-08-23 07:36] LABS: ALBUMIN 2.2 G/DL (3.2-5.2); ALKALINE PHOSPHATASE 95 U/L (46-116); ALT/SGPT < 9 U/L (7.0-40); AST/SGOT < 8 U/L (<34); BILIRUBIN,TOTAL 0.6 MG/DL (0.3-1.2); BLOOD UREA NITROGEN 13 MG/DL (9-23); CALCIUM LEVEL 8.6 MG/DL (8.3-10.6); CARBON DIOXIDE LEVEL 29 MMOL/L (20-31); CHLORIDE LEVEL 106 MMOL/L (98-107); CHOLESTEROL LEVEL 172 MG/DL (<200); CHOLESTEROL RISK RATIO 3.26 (<5); CREATININE FOR GFR 0.77 MG/DL (0.55-1.30); GLOMERULAR FILTRATION RATE > 60.0 (>32); GLUCOSE, FASTING 71 MG/DL (74-106); HDL CHOLESTEROL 52.6 MG/DL (>40); LDL CHOLESTEROL 103.4 MG/DL (<100); MAGNESIUM LEVEL 1.9 MG/DL (1.8-2.4); NON-HDL-C 119.4 MG/DL; POTASSIUM SERUM 3.4 MMOL/L (3.5-5.1); SODIUM LEVEL 142 MMOL/L (136-145); TOTAL PROTEIN 5.1 G/DL (5.7-8.2); TRIGLYCERIDES LEVEL 80 MG/DL (<150)
[2023-08-23 07:37] LABS: THYROID STIMULATING HORMONE 1.961 uIU/ML (0.55-4.78)
== END ==
LOC: SKLAB4 08:41
PROVIDERS: ATTEND Internal Medicine
DX: I48.91 Unspecified atrial fibrillation (principal); E03.9 Hypothyroidism, unspecified; E78.5 Hyperlipidemia, unspecified

== ENCOUNTER 2023-10-05 15:05 | Inpatient (IN) | payer MEDICARE, MEDICAID ==
[~2023-10-05] VITALS: Ht 149.9 cm; Wt 64.8 kg
[~2023-10-05 15:05] MED LIST changes: -ACET1TAB55 PO; -BISA10SU27 PR; -CARD120C3 PO; -CEFT1INJ17 IM; -ELIQ2.5T PO; -FLEEENE12 PR; -MIRT1TAB PO; -MOM30SS PO; -SENN1TAB85 PO; -SERO1TAB3 PO
[2023-10-05] MEDS: NS 1,000 ML IV SCH ×2 (15:20→21:20)
[2023-10-05] MEDS: LIDOCAINE 2% 5ML JELLY UROJET TOP ONE (15:35)
[2023-10-05 15:49] LABS: HEMATOCRIT 36.5 % (36.0-47.0); HEMOGLOBIN 12.1 g/dl (12.0-15.5); MEAN CORPUSCULAR HEMOGLOBIN 30.3 pg (27.0-33.0); MEAN CORPUSCULAR HGB CONC 33.2 g/dl (32.0-36.5); MEAN CORPUSCULAR VOLUME 91.5 fl (80.0-96.0); PLATELET COUNT, AUTOMATED 636 10^3/uL (150-450); RED BLOOD COUNT 3.99 10^6/uL (4.00-5.40); WHITE BLOOD COUNT 17.4 10^3/uL (4.0-10.0)
[2023-10-05] MEDS: PANTOPRAZOLE 40MG VIAL IV ONE (15:58)
[2023-10-05] MEDS: NS 500 ML IV ONE (15:58)
[2023-10-05 16:02] LABS: PARTIAL THROMBOPLASTIN TIME 39.5 SECONDS (24.8-34.2)
[2023-10-05] MEDS: PIPERACILLIN/TAZOBACTAM SOD 4.5 GM in D5W MINI-BAG PLUS 50 ML IV ONE (16:07)
[2023-10-05] MEDS: DEXTROSE 50% 50ML SYRINGE IV STA (16:07)
[2023-10-05 16:12] LABS: LYMPHOCYTES 6 % (16-44); NEUTROPHILS 81 % (28-66); PLATELET ESTIMATE INCREASED (NORMAL)
[2023-10-05 16:13] LABS: TOXIC GRANULATION 2+; TOXIC VACUOLATION 1+
[2023-10-05] MEDS: NS 1,000 ML IV ONE (16:15)
[2023-10-05 16:16] LABS: LIPASE 13 U/L (12-53)
[2023-10-05 16:18] LABS: ALBUMIN 1.7 G/DL (3.2-5.2); ALKALINE PHOSPHATASE 102 U/L (46-116); ALT/SGPT 12 U/L (7.0-40); AST/SGOT 21 U/L (<34); BILIRUBIN,DIRECT 0.5 MG/DL (<0.4); BILIRUBIN,TOTAL 0.7 MG/DL (0.3-1.2); BLOOD UREA NITROGEN 49 MG/DL (9-23); CALCIUM LEVEL 8.6 MG/DL (8.3-10.6); CARBON DIOXIDE LEVEL 22 MMOL/L (20-31); CHLORIDE LEVEL 101 MMOL/L (98-107); CREATININE FOR GFR 1.87 MG/DL (0.55-1.30); GLOMERULAR FILTRATION RATE 27.2 (>32); GLUCOSE, FASTING 67 MG/DL (74-106); POTASSIUM SERUM 4.5 MMOL/L (3.5-5.1); SODIUM LEVEL 134 MMOL/L (136-145); TOTAL PROTEIN 4.8 G/DL (5.7-8.2)
[2023-10-05 16:21] LABS: AMYLASE < 20 U/L (30-118)
[2023-10-05 16:24] LABS: INR 3.17; PROTHROMBIN TIME 31.3 SECONDS (12.5-14.5)
[2023-10-05] MEDS ORDERED: PROTHROMBIN COMPLEX CONCEN 1,000 UNIT in APPROPRIATE DILUENT 40 ML IV STA (16:46)
[2023-10-05] MEDS: FACTOR XA,INACTIVATED-ZHZO 400 MG in APPROPRIATE DILUENT 40 ML IV ONE (16:50)
[2023-10-05] MEDS: FACTOR XA,INACTIVATED-ZHZO 480 MG in APPROPRIATE DILUENT 48 ML IV ONE (17:00)
[2023-10-05] MEDS ORDERED: ONDANSETRON 4MG 2ML VIAL As Ordered ONE (17:41)
[2023-10-05] MEDS ORDERED: LIDOCAINE 2% 100MG/5ML SDV (FOR ANES.) As Ordered ONE (17:41)
[2023-10-05] MEDS ORDERED: ROCURONIUM BROMIDE 50MG/5ML VIAL As Ordered ONE (17:41)
[2023-10-05] MEDS ORDERED: propofoL 200 MG/20 ML VIAL As Ordered ONE (17:41)
[2023-10-05] MEDS ORDERED: fentaNYL 100 MCG/2 ML INJECTION As Ordered ONE (17:42)
[2023-10-05] MEDS ORDERED: ACETAMINOPHEN 1000MG 100ML IV BAG As Ordered ONE (20:55)
[2023-10-05] MEDS ORDERED: PHENYLephrine 500MCG 5ML (100MCG/ML) SYRINGE As Ordered ONE (20:57)
[2023-10-05] MEDS ORDERED: VASOPRESSIN INJ 20UNITS/ML 1ML VIAL As Ordered ONE (21:04)
[2023-10-05] MEDS ORDERED: HYDROMORPHONE HCL 0.5 MG/ 0.5 ML SYRINGE IV PRN (21:20)
[2023-10-05] MEDS: TRANEXAMIC ACID 100 MG/ML 10ML VIAL As Ordered ONE (21:55)
[2023-10-05] MEDS ORDERED: HYDROmorphone HCL 2MG/ML 1ML VIAL As Ordered ONE (22:34)
[2023-10-05 23:27] VITALS: O2SAT 100
[2023-10-06] VITALS (107 sets, daily range): BP systolic 42–183; BP diastolic 15–99; TEMP 96.8–100.2; O2SAT 90–100
[2023-10-06] MEDS ORDERED: SERO1TAB3 PO (00:14)
[2023-10-06] MEDS ORDERED: SENN1TAB85 PO (00:14)
[2023-10-06] MEDS ORDERED: CARD120C3 PO (00:14)
[2023-10-06] MEDS ORDERED: CEFT1INJ17 IM (00:14)
[2023-10-06] MEDS ORDERED: MIRT1TAB PO (00:14)
[2023-10-06] MEDS ORDERED: BISA10SU27 PR (00:21)
[2023-10-06] MEDS ORDERED: MOM30SS PO (00:21)
[2023-10-06] MEDS ORDERED: ACET1TAB55 PO (00:21)
[2023-10-06] MEDS ORDERED: ELIQ2.5T PO (00:21)
[2023-10-06] MEDS ORDERED: FLEEENE12 PR (00:21)
[2023-10-06] MEDS ORDERED: HOME MED LIST COMPLETE! XX SCH (00:25)
[2023-10-06] MEDS: MIDAZOLAM 100MG/100ML-0.9%NACL 100 MG in IV 1 EA IV SCH (00:33)
[2023-10-06] MEDS: LR 1,000 ML IV SCH ×2 (00:33→18:16)
[2023-10-06] MEDS ORDERED: BISACODYL 10MG SUPP PR PRN (00:45)
[2023-10-06] MEDS: NOREPINEPHRINE 4MG IN D5 250ML 4 MG in IV 1 EA IV SCH (01:10)
[2023-10-06] MEDS: PIPERACILLIN/TAZOBACTAM SOD 2.25 GM in D5W MINI-BAG PLUS 50 ML IV SCH (02:39)
[2023-10-06] MEDS: DIGOXIN INJ 0.5 MG/2 ML AMP IV STA (03:22)
[2023-10-06 03:48] LABS: HEMATOCRIT 29.9 % (36.0-47.0); MEAN CORPUSCULAR HEMOGLOBIN 30.2 pg (27.0-33.0); MEAN CORPUSCULAR HGB CONC 32.4 g/dl (32.0-36.5); MEAN CORPUSCULAR VOLUME 93.1 fl (80.0-96.0); RED BLOOD COUNT 3.21 10^6/uL (4.00-5.40); WHITE BLOOD COUNT 13.9 10^3/uL (4.0-10.0)
[2023-10-06 04:06] LABS: HEMOGLOBIN 9.7 g/dl (12.0-15.5); PLATELET COUNT, AUTOMATED 491 10^3/uL (150-450)
[2023-10-06 04:35] LABS: BILIRUBIN,TOTAL 0.5 MG/DL (0.3-1.2); CALCIUM LEVEL 6.8 MG/DL (8.3-10.6); CREATININE FOR GFR 1.58 MG/DL (0.55-1.30); POTASSIUM SERUM 4.2 MMOL/L (3.5-5.1); TOTAL PROTEIN 3.2 G/DL (5.7-8.2)
[2023-10-06] MEDS: LEVOTHYROXINE 50MCG TABLET (0.05MG) PO SCH (06:12)
[2023-10-06] MEDS: ACETAMINOPHEN *IV* 1,000 MG in IV 1 EA IV SCH (08:49)
[2023-10-06] MEDS: PANTOPRAZOLE 40MG VIAL IV SCH (08:50)
[2023-10-06] MEDS: D5W/LR 1,000 ML IV SCH (08:50)
[2023-10-06] MEDS: dilTIAZem 30 MG TAB PO SCH (08:50)
[2023-10-06] MEDS: QUEtiapine FUMARATE 12.5 MG HALF-TAB PO SCH (09:00)
[2023-10-06] MEDS ORDERED: dilTIAZem 120MG **CD** CAPSULE PO SCH (09:00)
[2023-10-06] MEDS ORDERED: LR 1,000 ML IV ONE ×2 (09:30→10:30)
[2023-10-06] MEDS: VASOPRESSIN INJ 20 UNITS in NS 499 ML IV SCH (09:30)
[2023-10-06 11:16] LABS: INR 3.6; PROTHROMBIN TIME 34.6 SECONDS (12.5-14.5)
[2023-10-06] MEDS: HYDROCORTISONE 100MG/2ML VIAL IV ONE (11:27)
[2023-10-06] MEDS: HYDROCORTISONE 100MG/2ML VIAL IV SCH (16:04)
[2023-10-06] MEDS: fentaNYL 100 MCG/2 ML INJECTION IV PRN (17:54)
[2023-10-07] VITALS (50 sets, daily range): BP systolic 85–138; BP diastolic 44–66; TEMP 98.2–99.7; O2SAT 89–99
[2023-10-07 09:00] LABS: MEAN CORPUSCULAR HEMOGLOBIN 29.6 pg (27.0-33.0); MEAN CORPUSCULAR HGB CONC 33.3 g/dl (32.0-36.5); MEAN CORPUSCULAR VOLUME 88.8 fl (80.0-96.0); PLATELET COUNT, AUTOMATED 365 10^3/uL (150-450); RED BLOOD COUNT 3.04 10^6/uL (4.00-5.40); WHITE BLOOD COUNT 16.3 10^3/uL (4.0-10.0)
[2023-10-07 09:04] LABS: ALBUMIN 1.1 G/DL (3.2-5.2); BILIRUBIN,TOTAL 0.6 MG/DL (0.3-1.2); GLOMERULAR FILTRATION RATE 25.1 (>32); MAGNESIUM LEVEL 1.6 MG/DL (1.8-2.4); PHOSPHORUS LEVEL 4.6 MG/DL (2.4-5.1); POTASSIUM SERUM 4.2 MMOL/L (3.5-5.1); TOTAL PROTEIN 3.6 G/DL (5.7-8.2)
[2023-10-07 09:17] LABS: ANISOCYTOSIS 2+; LYMPHOCYTES 4 % (16-44); MONOCYTES 1 % (0-5); NEUTROPHILS 94 % (28-66); PLATELET CLUMPS SMALL AMT; PLATELET ESTIMATE NORMAL (NORMAL); POIKILOCYTOSIS 1+; POLYCHROMASIA 1+
[2023-10-07] MEDS: FUROSEMIDE 40MG/4ML VIAL IV ONE (09:57)
[2023-10-07] MEDS ORDERED: ONDANSETRON 4MG 2ML VIAL IV PRN (13:55)
[2023-10-07] MEDS ORDERED: SCOPOLAMINE 1MG TRANSDERMAL PATCH TOP PRN (13:55)
[2023-10-07] MEDS ORDERED: MORPHINE 2 MG/ML 1ML VIAL IV PRN (13:55)
[2023-10-07] MEDS: HYDROMORPHONE HCL 0.5 MG/ 0.5 ML SYRINGE IV PRN (20:06)
[2023-10-08] MEDS: LORazepam 2 MG/ML 1ML VIAL IV PRN (03:38)
[2023-10-08 09:40] VITALS: TEMP 98.2; O2SAT 97
== END 2023-10-08 13:54 | disposition expired | DRG 853 ==
LOC: EDBD 15:05 → M ED 15:05 → M ED INP 17:12 → M ICU 23:18
PROVIDERS: ADMIT Internal Medicine Pulmonary Disease; ATTEND Student in an Organized Health Care Education/Training Program
PROC: 0D1N0Z4 Bypass Sigmoid Colon to Cutaneous, Open Approach (ICD-10-PCS; 2023-10-05)
PROC: 0DTM0ZZ Resection of Descending Colon, Open Approach (ICD-10-PCS; principal; 2023-10-05 17:15)
PROC: 04HK33Z Insertion of Infusion Device into Right Femoral Artery, Percutaneous Approach (ICD-10-PCS; 2023-10-06)
DX: A41.9 Sepsis, unspecified organism (principal); R65.21 Severe sepsis with septic shock; K65.9 Peritonitis, unspecified; N17.0 Acute kidney failure with tubular necrosis; K55.049 Acute infarction of large intestine, extent unspecified; K57.80 Diverticulitis of intestine, part unspecified, with perforation and abscess without bleeding; D68.32 Hemorrhagic disorder due to extrinsic circulating anticoagulants; I10 Essential (primary) hypertension; I27.20 Pulmonary hypertension, unspecified; E03.9 Hypothyroidism, unspecified; F03.90 Unspecified dementia, unspecified severity, without behavioral disturbance, psychotic disturbance, mood disturbance, and anxiety; E78.5 Hyperlipidemia, unspecified; I48.0 Paroxysmal atrial fibrillation; Z79.899 Other long term (current) drug therapy; Z91.040 Latex allergy status; Z88.5 Allergy status to narcotic agent; Z88.8 Allergy status to other drugs, medicaments and biological substances; Z51.5 Encounter for palliative care

== ENCOUNTER → 2023-10-05 | Outpatient (CLI) | payer MEDICARE, MEDICAID ==
[~2023-10-05] MED LIST changes: +ACET1TAB55 PO; +BISA10SU27 PR; +CARD120C3 PO; +CEFT1INJ17 IM; +ELIQ2.5T PO; +FLEEENE12 PR; +MIRT1TAB PO; +MOM30SS PO; +SENN1TAB85 PO; +SERO1TAB3 PO
== END ==
LOC: M RAD 13:06
PROVIDERS: ATTEND Nurse Practitioner Adult Health
DX: R93.5 Abnormal findings on diagnostic imaging of other abdominal regions, including retroperitoneum (principal); R10.9 Unspecified abdominal pain

== ENCOUNTER → 2023-10-05 | Outpatient (REF) | payer MEDICAID, MEDICARE ==
[2023-10-05 09:15] LABS: AMORPHOUS SEDIMENT MODERATE (NEGATIVE); APPEARANCE, URINE TURBID (CLEAR); BACTERIA, URINE AUTO NEGATIVE (NEGATIVE); BILIRUBIN, URINE AUTO 1+ (NEGATIVE); BLOOD, URINE BLOOD 1+ (NEGATIVE); COLOR, URINE YELLOW (YELLOW); GLUCOSE, URINE (UA) AUTO NEGATIVE (NEGATIVE); KETONE, URINE AUTO TRACE mg/dL (NEGATIVE); LEUKOCYTE ESTERASE, URINE AUTO 1+ (NEGATIVE); NITRITE, URINE AUTO NEGATIVE (NEGATIVE); PROTEIN, URINE AUTO 2+ mg/dL (NEGATIVE); RBC, URINE AUTO 39 /HPF (0-3); SQUAMOUS EPITHELIAL CELL UR AU 16 /HPF (0-6); WBC, URINE AUTO TNTC /HPF (0-3)
[2023-10-05 09:31] LABS: HEMATOCRIT 37.7 % (36.0-47.0); HEMOGLOBIN 12.3 g/dl (12.0-15.5); MEAN CORPUSCULAR HEMOGLOBIN 29.9 pg (27.0-33.0); MEAN CORPUSCULAR HGB CONC 32.6 g/dl (32.0-36.5); MEAN CORPUSCULAR VOLUME 91.7 fl (80.0-96.0); PLATELET COUNT, AUTOMATED 667 10^3/uL (150-450); RED BLOOD COUNT 4.11 10^6/uL (4.00-5.40)
[2023-10-05 10:03] LABS: ALBUMIN 1.7 G/DL (3.2-5.2); BILIRUBIN,TOTAL 0.7 MG/DL (0.3-1.2); CALCIUM LEVEL 8.6 MG/DL (8.3-10.6); CREATININE FOR GFR 1.71 MG/DL (0.55-1.30); GLOMERULAR FILTRATION RATE 30.1 (>32); POTASSIUM SERUM 4.4 MMOL/L (3.5-5.1); TOTAL PROTEIN 4.6 G/DL (5.7-8.2)
[2023-10-05 10:09] LABS: LYMPHOCYTES 8 % (16-44); MONOCYTES 2 % (0-5); NEUTROPHILS 67 % (28-66)
[2023-10-05 10:10] LABS: ANISOCYTOSIS 1+
[2023-10-05 10:11] LABS: PLATELET ESTIMATE INCREASED (NORMAL)
== END ==
LOC: SKLAB4 08:03
PROVIDERS: ATTEND Internal Medicine
DX: R14.0 Abdominal distension (gaseous) (principal); R10.9 Unspecified abdominal pain